=== PATIENT | male | born 1965 | race African-American/Black ===

== ENCOUNTER 2018-10-12 10:36 | Inpatient (IN) | payer OTHER ==
[2018-10-12 10:40] VITALS: BMI 19.2
--- NOTE | 2018-10-12 11:40 | HP ---
CIWA Score Nausea/Vomitin Muscle Tremors: 2 Anxiety: 2 Agitation: 2 Paroxysmal Sweats: 1-Minimal Palms Moist Orientation: 0-Oriented Tacttile Disturbances: 1-Very Mild Itch/Numbness Auditory Disturbances: 1-Very Mild Visual Disturbances: 0-None Headache: 2-Mild CIWA-Ar Total Score: 13 - Admission Criteria OASAS Guidelines: Admission for Medically Managed Detox: Requires at least one of the followin. CIWA greater than 12 2. Seizures within the past 24 hours 3. Delirium tremens within the past 24 hours 4. Hallucinations within the past 24 hours 5. Acute intervention needed for co occurring medical disorder 6. Acute intervention needed for co occurring psychiatric disorder 7. Severe withdrawal that cannot be handled at a lower level of care (continued vomiting, continued diarrhea, abnormal vital signs) requiring intravenous medication and/or fluids 8. Patient presents the following: CIWA greater than 12 Admission Criteria Met: Admission criteria met Admission ROS BHS - HPI Chief Complaint: i need help to stop drinking alcohol,cocaine and marijuana Allergies/Adverse Reactions: Allergies Allergy/AdvReac Type Severity Reaction Status Date / Time No Known Allergies Allergy Verified 10/12/18 11:01 History of Present Illness: this 53 years old male with alcohol dependence,seeking detox,withdrawal symptom, last treatment in [facility] 05/19 completed nicotine dependence 1 pack/day hiv since 1990 weight loss plan for rehab after longest sobriety 2 years Exam Limitations: No Limitations - Ebola screening Have you traveled outside of the country in the last 21 days: No (N) Have you had contact with anyone from an Ebola affected area: No Have you been sick,other than usual withdrawal symptoms: No Do you have a fever: No - Review of Systems Constitutional: Loss of Appetite, Malaise, Night Sweats, Changes in sleep, Weakness, Unintentional Wgt. Loss EENT: reports: Nose Congestion Respiratory: reports: No Symptoms reported Cardiac: reports: No Symptoms Reported GI: reports: Poor Appetite, Abdominal cramping : reports: No Symptoms Reported Musculoskeletal: reports: Back Pain, Muscle Pain Integumentary: reports: Dryness Endocrine: reports: No Symptoms Reported Hematology: reports: No Symptoms Reported, Other (hiv) Psychiatric: reports: No Sypmtoms Reported, Judgement Intact, Mood/Affect Appropiate, Orientated x3, other Other Systems: Reviewed and Negative Patient History - Patient Medical History Hx Asthma: No Hx Chronic Obstructive Pulmonary Disease (COPD): No Hx Cancer: No Hx Cardiac Disorders: No Hx Congestive Heart Failure: No Hx Hypertension: No Hx Hypercholesterolemia: No Hx Pacemaker: No HX Cerebrovascular Accident: No Hx Seizures: No Hx Dementia: No Hx Diabetes: No Hx Gastrointestinal Disorders: No Hx Genitourinary Disorders: No Hx Sexually Transmitted Disorders: Yes (chlamydia, Gonorrhea, herpes all 1990) Hx Renal Disease (ESRD): No Hx Thyroid Disease: No Hx Human Immunodeficiency Virus (HIV): Yes (since 1990) Hx Hepatitis C: No Hx Depression: No Hx Suicide Attempt: No Hx Bipolar Disorder: No Hx Schizophrenia: No Other Medical History: no suicidal,no homicidal - Patient Surgical History Past Surgical History: No - PPD History Previous Implant?: No Documented Results: Positive w/o proof Implanted On Prior [facility] Admission?: No PPD to be Administered?: No - Reproductive History Patient : No - Smoking Cessation Smoking history: Current every day smoker Have you smoked in the past 12 months: Yes Aproximately how many cigarettes per day: 10 Hx Chewing Tobacco Use: No Initiated information on smoking cessation: Yes 'Breaking Loose' booklet given: 10/12/18 - Substance & Tx. History Hx Alcohol Use: Yes Hx Substance Use: Yes Substance Use Type: Alcohol, Cocaine, Marijuana Hx Substance Use Treatment: Yes ([facility] in 04/19) - Substances Abused Alcohol Route: Oral Frequency: Daily Amount used: 4 six packs beers( 16 oz cans), 1 pint a liquor Age of first use: 13 Date of Last Use: 10/12/18 marijuana Route: Smoking Frequency: Daily Amount used: 1 bag Age of first use: 16 Date of Last Use: 10/12/18 crack cocaine Route: Smoking Frequency: Daily Amount used: $100-$200 per day Age of first use: 25 Date of Last Use: 10/12/18 Family Disease History - Family Disease History Family History: Denies Admission Physical Exam BHS - Vital Signs Vital Signs: Vital Signs - 24 hr 10/12/18 10:38 Temperature 98.1 F Pulse Rate 90 Respiratory 18 Rate Blood Pressure 140/86 - Physical General Appearance: Yes: Moderate Distress, Tremorous, Irritable, Sweating, Anxious HEENTM: Yes: Normal ENT Inspection, NATHANAEL, Pharynx Normal, Thrush, Other ( oropharyngeal candidiasis) Respiratory: Yes: Lungs Clear, Normal Breath Sounds, No Respiratory Distress Neck: Yes: Within Normal Limits, Supple, Trachea in good position Breast: Yes: Within Normal Limits Cardiology: Yes: Within Normal Limits, Regular Rhythm, Regular Rate, S1, S2 Abdominal: Yes: Within Normal Limits, Normal Bowel Sounds, Non Tender, Flat, Soft Genitourinary: Yes: Within Normal Limits Back: Yes: Muscle Spasm Musculoskeletal: Yes: full range of Motion, Back pain, Muscle Pain Extremities: Yes: Tremors Neurological: Yes: garnisher II-XII NML intact, Fully Oriented, Alert, Motor Strength 5/5 Integumentary: Yes: Dry Lymphatic: Yes: Within Normal Limits - Diagnostic (1) Alcohol dependence with uncomplicated withdrawal Current Visit: Yes Status: Acute (2) Cocaine dependence Current Visit: Yes Status: Acute (3) HIV (human immunodeficiency virus infection) Current Visit: Yes Status: Acute (4) Oropharyngeal candidiasis Current Visit: Yes Status: Acute (5) Nicotine dependence Current Visit: Yes Status: Acute (6) Weight loss Current Visit: Yes Status: Acute Cleared for Admission [facility] - Detox or Rehab [facility] Level of Care: Medically Managed Detox Regimen/Protocol: Librium [facility] Breath Alcohol Content Breath Alcohol Content: 0.126 Urine Drug Screen - Results Drug Screen Negative: No Urine Drug Screen Results: IMAN-Cocaine Inpatient Rehab Admission - Rehab Decision to Admit Inpatient rehab admission?: No
[2018-10-12] MEDS ORDERED: MELATONIN 5 MG TABLETS PO PRN (11:51)
[2018-10-12] MEDS ORDERED: MENTHOL/PHENOL 1 EACH UD MM PRN (11:51)
[2018-10-12] MEDS ORDERED: NICOTINE POLACRILEX 2 MG GUM BUC PRN (11:51)
[2018-10-12] MEDS ORDERED: chlordiazePOXIDE HCL 25 MG CAPSULE PO PRN (11:51)
[2018-10-12] MEDS ORDERED: ACETAMINOPHEN 325 MG TABLET (FP) PO PRN ×2 (11:51)
[2018-10-12] MEDS ORDERED: MAG HYDROX/AL HYDROX/SIMETH 30 ML UNIT-DOSE CUP PO PRN (11:51)
[2018-10-12] MEDS ORDERED: METHOCARBAMOL 500 MG TABLET PO PRN (11:51)
[2018-10-12] MEDS ORDERED: IBUPROFEN 400 MG TABLET (FP) PO PRN (11:51)
[2018-10-12] MEDS ORDERED: MAGNESIUM HYDROX 2400MG/30ML ORAL SUSPENSION 30 ML CUP PO PRN (11:51)
[2018-10-12] MEDS ORDERED: BISMUTH SUBSALICYLATE 262 MG/15 ML BTL PO PRN (11:51)
[2018-10-12] MEDS ORDERED: MAGNESIUM CITRATE 300 ML BOTTLE PO PRN (11:51)
[2018-10-12] MEDS ORDERED: hydrOXYzine PAMOATE 25 MG CAPSULE (FP) PO PRN (11:51)
[2018-10-12] MEDS: SULFAMETHOXAZOLE/TRIMETHOPRIM 800MG/160MG D.S. TABLET PO SCH (13:18)
[2018-10-12] MEDS: FLUCONAZOLE 100 MG TABLET (UD) PO SCH (14:46)
[2018-10-12] MEDS: chlordiazePOXIDE HCL 25 MG CAPSULE PO SCH ×2 (17:55→22:06)
[2018-10-12] MEDS: THIAMINE HCL 100 MG TABLET (FP) PO SCH (22:06)
[2018-10-12 23:51] LABS: URINE APPEARANCE CLEAR; URINE BILIRUBIN NEGATIVE (<2.0 mg/dL); URINE COLOR STRAW; URINE GLUCOSE (UA) NEGATIVE (NEGATIVE); URINE KETONE NEGATIVE (NEGATIVE); URINE LEUK ESTERASE NEGATIVE (NEGATIVE); URINE NITRITE NEGATIVE (NEGATIVE); URINE PROTEIN NEGATIVE (NEGATIVE); URINE UROBILINOGEN NEGATIVE mg/dL (0.2-1.0)
[2018-10-13] MEDS: chlordiazePOXIDE HCL 25 MG CAPSULE PO SCH ×4 (05:45→22:08)
[2018-10-13 10:18] LABS: HEMATOCRIT 39.6 % (35.4-49); HEMOGLOBIN 13.4 GM/dL (11.7-16.9); MCH 32.5 pg (25.7-33.7); MEAN CELL VOLUME 95.7 fl (80-96); MEAN PLT VOLUME 8.4 fl (7.5-11.1); PLATELET COUNT 136 K/MM3 (134-434); RBC 4.14 M/mm3 (4.00-5.60); RDW 14.1 % (11.9-15.9); WHITE BLOOD COUNT 3.9 K/mm3 (4.0-10.0)
[2018-10-13] MEDS: PRENATAL VITAMINS W/ FOLIC ACID TABLET (FP) PO SCH (10:37)
[2018-10-13] MEDS: SULFAMETHOXAZOLE/TRIMETHOPRIM 800MG/160MG D.S. TABLET PO SCH (10:38)
[2018-10-13] MEDS: FLUCONAZOLE 100 MG TABLET (UD) PO SCH (10:38)
[2018-10-13 10:51] LABS: ALBUMIN 3.5 g/dl (3.4-5.0); ALK PHOS 99 U/L (45-117); ANION GAP 10 MMOL/L (8-16); BILIRUBIN,TOTAL 0.4 mg/dL (0.2-1); BLOOD UREA NITROGEN 11 mg/dL (7-18); CALCIUM 8.4 mg/dL (8.5-10.1); CHLORIDE 102 mmol/L (98-107); CO2 22 mmol/L (21-32); CREATININE 1.2 mg/dL (0.55-1.3); GLUCOSE,RANDOM 95 mg/dL (74-106); POTASSIUM 4.1 mmol/L (3.5-5.1); SGOT/AST 90 U/L (15-37); SGPT/ALT 62 U/L (13-61); SODIUM 134 mmol/L (136-145); TOT PROT 9.4 g/dl (6.4-8.2)
[2018-10-13 10:56] LABS: SICKLE CELL SCREEN NEGATIVE (NEGATIVE)
--- NOTE | 2018-10-13 17:48 | PN ---
BHS CIWA - CIWA Score Nausea/Vomitin Muscle Tremors: 3 Anxiety: 2 Agitation: 0-Normal Activity Paroxysmal Sweats: 2 Orientation: 0-Oriented Tacttile Disturbances: 2-Mild Itch/Numbness/Burn Auditory Disturbances: 0-None Visual Disturbances: 2-Mild Sensitivity Headache: 0-None Present CIWA-Ar Total Score: 13 BHS Progress Note (SOAP) Subjective: Sweating, Tremors, Nausea, Anxious. Objective: PATIENT A & O X 3. IN NO ACUTE DISTRESS. 10/13/18 17:45 Vital Signs Temperature 97.5 F L 10/13/18 14:04 Pulse Rate 82 10/13/18 14:04 Respiratory Rate 18 10/13/18 14:04 Blood Pressure 110/68 10/13/18 14:04 O2 Sat by Pulse Oximetry (%) Laboratory Tests 10/12/18 10/13/18 10/13/18 23:17 06:00 06:00 WBC 3.9 L RBC 4.14 Hgb 13.4 Hct 39.6 MCV 95.7 MCH 32.5 MCHC 34.0 RDW 14.1 Plt Count 136 MPV 8.4 Sickle Cell Screen Negative Sodium 134 L Potassium 4.1 Chloride 102 Carbon Dioxide 22 Anion Gap 10 BUN 11 Creatinine 1.2 Creat Clearance w eGFR > 60 Random Glucose 95 Calcium 8.4 L Total Bilirubin 0.4 AST 90 H ALT 62 H Alkaline Phosphatase 99 Total Protein 9.4 H Albumin 3.5 Urine Color Straw Urine Appearance Clear Urine pH 5.0 Ur Specific [place] 1.003 L Urine Protein Negative Urine Glucose (UA) Negative Urine Ketones Negative Urine Blood Negative Urine Nitrite Negative Urine Bilirubin Negative Urine Urobilinogen Negative Ur Leukocyte Esterase Negative RPR Titer 10/13/18 06:00 WBC RBC Hgb Hct MCV MCH MCHC RDW Plt Count MPV Sickle Cell Screen Sodium Potassium Chloride Carbon Dioxide Anion Gap BUN Creatinine Creat Clearance w eGFR Random Glucose Calcium Total Bilirubin AST ALT Alkaline Phosphatase Total Protein Albumin Urine Color Urine Appearance Urine pH Ur Specific [place] Urine Protein Urine Glucose (UA) Urine Ketones Urine Blood Urine Nitrite Urine Bilirubin Urine Urobilinogen Ur Leukocyte Esterase RPR Titer Nonreactive LABS NOTED. Assessment: 10/13/18 17:47 WITHDRAWAL SYMPTOMS. Plan: CONTINUE DETOX. INCREASE DAILY PO FLUID INTAKE. REEPAT AST TOMORROW AM FOR ELEVATED ADMISSION LEVEL.
[2018-10-13] MEDS: THIAMINE HCL 100 MG TABLET (FP) PO SCH (22:07)
[2018-10-14] MEDS: chlordiazePOXIDE HCL 25 MG CAPSULE PO SCH ×2 (06:16→10:36)
[2018-10-14 09:15] VITALS: BP 103/71; PULSE 85; TEMP 97.8
[2018-10-14] MEDS: FLUCONAZOLE 100 MG TABLET (UD) PO SCH (10:36)
[2018-10-14] MEDS: PRENATAL VITAMINS W/ FOLIC ACID TABLET (FP) PO SCH (10:36)
[2018-10-14] MEDS: SULFAMETHOXAZOLE/TRIMETHOPRIM 800MG/160MG D.S. TABLET PO SCH (10:36)
--- NOTE | 2018-10-14 16:01 | PN ---
[facility] CIWA - CIWA Score Nausea/Vomitin-No Nausea/No Vomiting Muscle Tremors: None Anxiety: 4-Mod. Anxious/Guarded Agitation: 2 Paroxysmal Sweats: 3 Orientation: 0-Oriented Tacttile Disturbances: 2-Mild Itch/Numbness/Burn Auditory Disturbances: 0-None Visual Disturbances: 0-None Headache: 0-None Present CIWA-Ar Total Score: 11 BHS Progress Note (SOAP) Subjective: Sweating, Anxious. Objective: PATIENT A & O X 3, OBSERVED AMBULATING ON UNIT. IN NO ACUTE DISTRESS. 10/14/18 15:59 Vital Signs Temperature 97.8 F 10/14/18 09:14 Pulse Rate 85 10/14/18 09:14 Respiratory Rate 18 10/14/18 09:14 Blood Pressure 103/71 10/14/18 09:14 O2 Sat by Pulse Oximetry (%) Laboratory Tests 10/12/18 10/13/18 10/13/18 23:17 06:00 06:00 WBC 3.9 L RBC 4.14 Hgb 13.4 Hct 39.6 MCV 95.7 MCH 32.5 MCHC 34.0 RDW 14.1 Plt Count 136 MPV 8.4 Sickle Cell Screen Negative Sodium 134 L Potassium 4.1 Chloride 102 Carbon Dioxide 22 Anion Gap 10 BUN 11 Creatinine 1.2 Creat Clearance w eGFR > 60 Random Glucose 95 Calcium 8.4 L Total Bilirubin 0.4 AST 90 H ALT 62 H Alkaline Phosphatase 99 Total Protein 9.4 H Albumin 3.5 Urine Color Straw Urine Appearance Clear Urine pH 5.0 Ur Specific [place] 1.003 L Urine Protein Negative Urine Glucose (UA) Negative Urine Ketones Negative Urine Blood Negative Urine Nitrite Negative Urine Bilirubin Negative Urine Urobilinogen Negative Ur Leukocyte Esterase Negative RPR Titer 10/13/18 10/14/18 06:00 07:40 WBC RBC Hgb Hct MCV MCH MCHC RDW Plt Count MPV Sickle Cell Screen Sodium Potassium Chloride Carbon Dioxide Anion Gap BUN Creatinine Creat Clearance w eGFR Random Glucose Calcium Total Bilirubin AST 79 H ALT Alkaline Phosphatase Total Protein Albumin Urine Color Urine Appearance Urine pH Ur Specific [place] Urine Protein Urine Glucose (UA) Urine Ketones Urine Blood Urine Nitrite Urine Bilirubin Urine Urobilinogen Ur Leukocyte Esterase RPR Titer Nonreactive LABS NOTED. RESULT OF REPEAT AST NOTED. REDUCTION NOTED IN AST LEVEL. 10/14/18 16:00 Assessment: 10/14/18 15:59 WITHDRAWAL SYMPTOMS. ELEVATED LIVER ENZYMES. 10/14/18 16:01 Plan: CONTINUE DETOX. INCREASE DAILY PO FLUID INTAKE.
--- NOTE | 2018-10-14 16:06 | DS ---
[facility] Detox Discharge Summary Admission Date: 10/12/18 Discharge Date: 10/14/18 - History Present History: Alcohol Dependence, Cocaine Dependence Additional Comments: PATIENT DOES NOT WISH TO REMAIN TO COMPLETE DETOX REGIMEN. RISKS OF LEAVING DETOX UNIT AGAINST MEDICAL ADVICE AND PRIOR TO COMPLETION OF DETOX REGIMEN EXPLAINED TO PATIENT. PATIENT ADVISED TO GO IMMEDIATELY TO NEAREST ER SHOULD ANY INTOLERABLE DETOX SYMPTOMS DEVELOP AT ANY TIME. DISCHARGE PRESCRIPTION FOR CONTINUATION OF DIFLUCAN (ORDERED FOR ORAL CANDIDIASIS FOR PATIENT WHILE ADMITTED ON DETOX UNIT) SENT TO [facility] ([place], [place]) FOR FOLLOW-UP AFTERCARE FOR PATIENT. PATIENT ADVISED TO COMPLETE FULL COURSE OF MEDICATION. PATIENT ADVISED TO FOLLOW-UP WITH COMPUTATIONAL CHEMIST WHEN POSSIBLE FOR GENERAL MEDICAL ASSESSMENT AND FOR ELEAVTED AST AND ALT LEVELS NOTED IN LABORATORY ASSESSMENT WHILE PATIENT WAS ADMITTED FOR DETOX. PATIENT VERBALIZED UNDERSTANDING OF ALL INFORMATION / RECOMMENDATIONS PRESENTED TO HIM PRIOR TO DEPARTURE FROM DETOX UNIT. COPIES OF LABS DRAWN WHILE ADMITTED FOR DETOX GIVEN TO PATIENT PRIOR TO LEAVING DETOX UNIT. PATIENT LEFT DETOX UNIT IN STABLE MEDICAL CONDITION. Pertinent Past History: H.I.V., Oral Candidiasis, Weight Loss, Nicotine Dependence, Elevated Liver Enzymes. - Physical Exam Results Vital Signs: Vital Signs Temperature 97.8 F 10/14/18 09:14 Pulse Rate 85 10/14/18 09:14 Respiratory Rate 18 10/14/18 09:14 Blood Pressure 103/71 10/14/18 09:14 O2 Sat by Pulse Oximetry (%) Pertinent Admission Physical Exam Findings: WITHDRAWAL SYMPTOMS. Laboratory Tests 10/12/18 10/13/18 10/13/18 23:17 06:00 06:00 WBC 3.9 L RBC 4.14 Hgb 13.4 Hct 39.6 MCV 95.7 MCH 32.5 MCHC 34.0 RDW 14.1 Plt Count 136 MPV 8.4 Sickle Cell Screen Negative Sodium 134 L Potassium 4.1 Chloride 102 Carbon Dioxide 22 Anion Gap 10 BUN 11 Creatinine 1.2 Creat Clearance w eGFR > 60 Random Glucose 95 Calcium 8.4 L Total Bilirubin 0.4 AST 90 H ALT 62 H Alkaline Phosphatase 99 Total Protein 9.4 H Albumin 3.5 Urine Color Straw Urine Appearance Clear Urine pH 5.0 Ur Specific [place] 1.003 L Urine Protein Negative Urine Glucose (UA) Negative Urine Ketones Negative Urine Blood Negative Urine Nitrite Negative Urine Bilirubin Negative Urine Urobilinogen Negative Ur Leukocyte Esterase Negative RPR Titer 10/13/18 10/14/18 06:00 07:40 WBC RBC Hgb Hct MCV MCH MCHC RDW Plt Count MPV Sickle Cell Screen Sodium Potassium Chloride Carbon Dioxide Anion Gap BUN Creatinine Creat Clearance w eGFR Random Glucose Calcium Total Bilirubin AST 79 H ALT Alkaline Phosphatase Total Protein Albumin Urine Color Urine Appearance Urine pH Ur Specific [place] Urine Protein Urine Glucose (UA) Urine Ketones Urine Blood Urine Nitrite Urine Bilirubin Urine Urobilinogen Ur Leukocyte Esterase RPR Titer Nonreactive LABS NOTED. - Treatment Hospital Course: Detox Protocol Followed, Detoxed Safely - Medication Discharge Medications: Ambulatory Orders Abacavir/Dolutegravir/Lamivudi [Triumeq Tablet] 1 each PO DAILY 10/12/18 Fluconazole [Diflucan -] 100 mg PO DAILY 5 Days #5 tablet 10/14/18 - Diagnosis (1) Alcohol dependence with uncomplicated withdrawal Status: Acute (2) Cocaine dependence Status: Acute Qualifiers: Substance use status: uncomplicated Qualified Code(s): F14.20 - Cocaine dependence, uncomplicated (3) HIV (human immunodeficiency virus infection) Status: Acute Qualifiers: HIV symptom status: unspecified Qualified Code(s): B20 - Human immunodeficiency virus [HIV] disease (4) Nicotine dependence Status: Chronic Qualifiers: Nicotine product type: cigarettes Substance use status: uncomplicated Qualified Code(s): F17.210 - Nicotine dependence, cigarettes, uncomplicated (5) Oropharyngeal candidiasis Status: Acute (6) Weight loss Status: Acute (7) Elevated liver enzymes Status: Acute - AMA Did Patient Leave Against Medical Advice: Yes (PATIENT DID NOT WISH TO REEMAIN TO COMPLETE DETOX REGIMEN.)
[2018-10-14] MEDS ORDERED: chlordiazePOXIDE HCL 10 MG CAPSULE PO PRN (17:00)
[2018-10-14] MEDS ORDERED: chlordiazePOXIDE HCL 10 MG CAPSULE PO SCH (17:00)
[2018-10-15] MEDS ORDERED: chlordiazePOXIDE HCL 10 MG CAPSULE PO SCH (17:00)
== END 2018-10-14 11:17 | disposition left against medical advice (07) | DRG 770 ==
LOC: YASAS 10:36 → Y3N 12:01
PROVIDERS: ADMIT Surgery; ATTEND Surgery
PROC: HZ2ZZZZ Detoxification Services for Substance Abuse Treatment (ICD-10-PCS; principal; 2018-10-12)
DX: F10.230 Alcohol dependence with withdrawal, uncomplicated (principal); F14.20 Cocaine dependence, uncomplicated; F17.210 Nicotine dependence, cigarettes, uncomplicated; Z21 Asymptomatic human immunodeficiency virus [HIV] infection status; B37.0 Candidal stomatitis; R74.8 Abnormal levels of other serum enzymes; R63.4 Abnormal weight loss; Z68.1 Body mass index [BMI] 19.9 or less, adult; Z86.19 Personal history of other infectious and parasitic diseases
CPT/HCPCS: 36415; 71046-TC-FY; 80053; 81003; 84450; 85027; 85660; 86593

== ENCOUNTER 2020-03-16 13:59 | Inpatient (IN) | payer OTHER ==
[2020-03-16 20:16] VITALS: BMI 19.2
--- NOTE | 2020-03-16 20:58 | HP ---
CIWA Score Nausea/Vomitin Muscle Tremors: 3 Anxiety: 4-Mod. Anxious/Guarded Agitation: 3 Paroxysmal Sweats: 2 Orientation: 2-Disoriented Date<2 days Tacttile Disturbances: 0-None Auditory Disturbances: 0-None Visual Disturbances: 0-None Headache: 0-None Present CIWA-Ar Total Score: 16 - Admission Criteria OASAS Guidelines: Admission for Medically Managed Detox: Requires at least one of the followin. CIWA greater than 12 2. Seizures within the past 24 hours 3. Delirium tremens within the past 24 hours 4. Hallucinations within the past 24 hours 5. Acute intervention needed for co occurring medical disorder 6. Acute intervention needed for co occurring psychiatric disorder 7. Severe withdrawal that cannot be handled at a lower level of care (continued vomiting, continued diarrhea, abnormal vital signs) requiring intravenous medication and/or fluids 8. Admitting History and Physical - Smoking History Smoking history: Current every day smoker Have you smoked in the past 12 months: Yes Aproximately how many cigarettes per day: 20 - Alcohol/Substance Use Hx Alcohol Use: Yes Admission ROS [facility] Chief Complaint: Seeking admission to detox from alcohol Allergies/Adverse Reactions: Allergies Allergy/AdvReac Type Severity Reaction Status Date / Time No Known Allergies Allergy Verified 03/16/20 21:53 History of Present Illness: 54 years old male with a long history of alcohol dependence ( since age 12 years ) is seeking admission to detox. his last admission was for the period 12/02/2019-12/26/2019 and he relapsed a few days post discharge. He reports that he drinks 4 x 6 packs 16 oz. beer daily. He has medical history of HIV+, anemia, right leg neuropathy and psych. history of insomnia, anxiety. He denies suicid al ideation at this time. 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 He is unemployed, lives in a hotel "[facility]" and denies any legal issues. Patient reports that he is a transgender and prefers to be called "Timoteo". Patient's EKG is abnormal. NSR. T wave abnormality, consider anterolateral ischemia. Patient denies chest pain, discomfort, nausea, palpitation or any abnormal cardiac symptom. There is no prior EKG to compare. EKG to be repeated at 9AM. Patient instructed to report chest pain or discomfort. Exam Limitations: No Limitations - Ebola screening Have you traveled outside of the country in the last 21 days: No Have you had contact with anyone from an Ebola affected area: No Have you been sick,other than usual withdrawal symptoms: No Do you have a fever: No - Review of Systems Constitutional: Chills, Malaise, Night Sweats, Changes in sleep EENT: reports: No Symptoms Reported Respiratory: reports: No Symptoms reported Cardiac: reports: No Symptoms Reported GI: reports: Nausea, Poor Appetite, Poor Fluid Intake, Abdominal cramping : reports: No Symptoms Reported Musculoskeletal: reports: Other (right leg pain) Integumentary: reports: Dryness, Flushing Neuro: reports: Tremors Endocrine: reports: No Symptoms Reported Hematology: reports: No Symptoms Reported Psychiatric: reports: Mood/Affect Appropiate, Orientated x3 Other Systems: Reviewed and Negative Patient History - Patient Medical History Hx Anemia: Yes (Not on medication) Hx Asthma: No Hx Chronic Obstructive Pulmonary Disease (COPD): No Hx Cancer: No Hx Cardiac Disorders: No Hx Congestive Heart Failure: No Hx Hypertension: No Hx Hypercholesterolemia: No Hx Pacemaker: No HX Cerebrovascular Accident: No Hx Seizures: No Hx Dementia: No Hx Diabetes: No Hx Gastrointestinal Disorders: No Hx Genitourinary Disorders: No Hx Sexually Transmitted Disorders: Yes (HIV+) Hx Renal Disease (ESRD): No Hx Thyroid Disease: No Hx Human Immunodeficiency Virus (HIV): Yes (since 1990) Hx Hepatitis C: No Hx Depression: No Hx Suicide Attempt: No (Denies suicidl ideation at this time) Hx Bipolar Disorder: No Hx Schizophrenia: No Other Medical History: right leg neuropathy - Patient Surgical History Past Surgical History: Yes Hx Neurologic Surgery: No Hx Cataract Extraction: No Hx Cardiac Surgery: No Hx Lung Surgery: No Hx Abdominal Surgery: No Hx Appendectomy: No Hx Cholecystectomy: No Hx Genitourinary Surgery: No Hx Orthopedic Surgery: No Other Surgical History: Nose reconstruction 1988 Anesthesia Reaction: No - PPD History Previous Implant?: Yes (PPD positive, treated with INH) Documented Results: Positive w/proof Implanted On Prior R Admission?: No PPD to be Administered?: No - Reproductive History Patient is a Female of Child Bearing Age (11 -55 yrs old): No (Male) - Smoking Cessation Smoking history: Current every day smoker Have you smoked in the past 12 months: Yes Aproximately how many cigarettes per day: 10 Cigars Per Day: 0 Hx Chewing Tobacco Use: No Initiated information on smoking cessation: Yes 'Breaking Loose' booklet given: 03/16/20 - Substance & Tx. History Hx Alcohol Use: Yes Hx Substance Use: Yes Substance Use Type: Alcohol, Cocaine Hx Substance Use Treatment: Yes ([facility]) - Substances abused Alcohol Substance route: Oral Frequency: Daily Amount used: 4 x 6 packs 16 oz. beer Age of first use: 12 Date of last use: 03/16/20 Admission Physical Exam [facility] - Vital Signs Vital Signs: Vital Signs - 24 hr 03/16/20 20:13 Temperature 97.9 F Pulse Rate 92 H Respiratory 18 Rate Blood Pressure 123/71 - Physical General Appearance: Yes: Moderate Distress, Tremorous, Anxious HEENTM: Yes: Within Normal Limits Respiratory: Yes: Lungs Clear, Normal Breath Sounds, No Respiratory Distress Neck: Yes: Within Normal Limits Breast: Yes: Breast Exam Deferred Cardiology: Yes: Tachycardia Abdominal: Yes: Normal Bowel Sounds Genitourinary: Yes: Within Normal Limits Back: Yes: Normal Inspection Musculoskeletal: Yes: Other (shoulder pain) Extremities: Yes: Tremors, Other (right leg neuropathy) Neurological: Yes: Within Normal Limits Integumentary: Yes: Warm Lymphatic: Yes: Within Normal Limits Cleared for Admission [facility] - Detox or Rehab [facility] Level of Care: Medically Managed Detox Regimen/Protocol: Librium Claeared for Rehab Admission: No Breathalyzer - Breathalyzer Breathalyzer: 0.48 Urine Drug Screen - Test Device Lot number: [id number] Expiration date: 04/01/22 - Control Is test valid?: Yes - Results Drug screen NEGATIVE: No Urine drug screen results: IMAN-Cocaine Inpatient Rehab Admission - Rehab Decision to Admit Inpatient rehab admission?: No
[2020-03-16] MEDS ORDERED: MAG HYDROX/AL HYDROX/SIMETH 30 ML UNIT-DOSE CUP PO PRN (21:09)
[2020-03-16] MEDS ORDERED: ACETAMINOPHEN 325 MG TABLET (FP) PO PRN ×2 (21:09)
[2020-03-16] MEDS ORDERED: MAGNESIUM HYDROX 2400MG/30ML ORAL SUSPENSION 30 ML CUP PO PRN (21:09)
[2020-03-16] MEDS ORDERED: MAGNESIUM CITRATE 300 ML BOTTLE PO PRN (21:09)
[2020-03-16] MEDS ORDERED: ONDANSETRON *ODT* 4 MG TABLET SL PRN (21:09)
[2020-03-16] MEDS ORDERED: chlordiazePOXIDE HCL 25 MG CAPSULE PO PRN (21:09)
[2020-03-16] MEDS ORDERED: hydrOXYzine PAMOATE 25 MG CAPSULE (FP) PO PRN (21:09)
[2020-03-16] MEDS ORDERED: NICOTINE POLACRILEX 2 MG GUM BUC PRN (21:09)
[2020-03-16] MEDS ORDERED: METHOCARBAMOL 500 MG TABLET PO PRN (21:09)
[2020-03-16] MEDS ORDERED: MENTHOL/PHENOL 1 EACH UD MM PRN (21:09)
[2020-03-16] MEDS ORDERED: BISMUTH SUBSALICYLATE 524 MG/30 ML UD PO PRN (21:09)
[2020-03-16] MEDS: THIAMINE HCL 100 MG TABLET (FP) PO SCH (23:09)
[2020-03-16] MEDS: MELATONIN 5 MG TABLETS PO SCH (23:09)
[2020-03-16] MEDS: chlordiazePOXIDE HCL 25 MG CAPSULE PO SCH (23:10)
[2020-03-17] MEDS: chlordiazePOXIDE HCL 25 MG CAPSULE PO SCH ×4 (05:45→22:16)
[2020-03-17 10:48] LABS: ALBUMIN 2.8 g/dl (3.4-5.0); BLOOD UREA NITROGEN 9.2 mg/dL (7-18); CALCIUM 8.2 mg/dL (8.5-10.1); POTASSIUM 3.6 mmol/L (3.5-5.1); TOT PROT 8.3 g/dl (6.4-8.2)
[2020-03-17] MEDS: PRENATAL VITAMINS W/ FOLIC ACID TABLET (FP) PO SCH (10:51)
[2020-03-17] MEDS: NICOTINE 14 MG/24 HOURS TOPICAL PATCH TD SCH (10:51)
[2020-03-17 10:53] LABS: BILIRUBIN,TOTAL 0.6 mg/dL (0.2-1)
[2020-03-17 10:54] LABS: HEMATOCRIT 36.5 % (35.4-49); MCH 31.9 pg (25.7-33.7); MCHC 32.9 g/dl (32.0-35.9); MEAN CELL VOLUME 96.9 fl (80-96); MEAN PLT VOLUME 8.7 fl (7.5-11.1); PLATELET COUNT 118 K/MM3 (134-434); RBC 3.76 M/mm3 (4.00-5.60); RDW 13.5 % (11.9-15.9); WHITE BLOOD COUNT 2.8 K/mm3 (4.0-10.0)
--- NOTE | 2020-03-17 16:42 | PN ---
S CIWA - CIWA Score Nausea/Vomitin-Mild Nausea/No Vomiting Muscle Tremors: 1-None Visible, but [place] Anxiety: 2 Agitation: 3 Paroxysmal Sweats: No Perspiration Orientation: 0-Oriented Tacttile Disturbances: 1-Very Mild Itch/Numbness Auditory Disturbances: 0-None Visual Disturbances: 2-Mild Sensitivity Headache: 1-Very Mild CIWA-Ar Total Score: 11 S Progress Note (SOAP) Subjective: 54 YEARS OLD MALE ADMITTED ON 03/16/20 FOR ALCOHOL WITHDRAWAL SX MANAGEMENT TREATING WITH LIBRIUM DETOX REGIMENT [facility] DEMANDS TO RESUME ALL HIS HOME MEDICATIONS DISCUSSING HIV MEDICATION VERIFICATION WITH THE PHARMACY AND OUTSIDE PROVIDER ARE NECESSARY TO RESUME HIV MEDICATION PREFERRED PHARMACY CLOSE ON WEDNESDAY [facility] IS DISSATISFY REGARDING THE HIV MEDICATION ENCOURAGE [facility] TO BRING IN HIV MEDICATION FOR DETOX Objective: 03/17/20 16:44 Vital Signs - 24 hr 03/16/20 03/16/20 03/16/20 20:13 21:58 22:27 Temperature 97.9 F 97.9 F Pulse Rate 92 H 92 H Respiratory 18 18 Rate Blood Pressure 123/71 123/71 O2 Sat by Pulse 98 Oximetry (%) 03/16/20 03/17/20 03/17/20 22:40 07:09 08:30 Temperature 96.8 F L 97.7 F 97.1 F L Pulse Rate 61 76 78 Respiratory 18 18 18 Rate Blood Pressure 154/91 119/74 126/88 O2 Sat by Pulse 98 99 Oximetry (%) 03/17/20 12:18 Temperature 98.8 F Pulse Rate 106 H Respiratory 18 Rate Blood Pressure 113/78 O2 Sat by Pulse 99 Oximetry (%) Laboratory Tests 03/17/20 03/17/20 03/17/20 08:00 08:00 08:00 WBC 2.8 L RBC 3.76 L Hgb 12.0 Hct 36.5 MCV 96.9 H MCH 31.9 MCHC 32.9 RDW 13.5 Plt Count 118 L D MPV 8.7 Sodium 139 Potassium 3.6 Chloride 105 Carbon Dioxide 28 Anion Gap 6 L BUN 9.2 Creatinine 1.0 Est GFR (CKD-EPI)AfAm 98.46 Est GFR (CKD-EPI)NonAf 84.95 Random Glucose 104 Calcium 8.2 L Total Bilirubin 0.6 AST 79 H ALT 38 Alkaline Phosphatase 90 Total Protein 8.3 H Albumin 2.8 L Syphilis Serology Reactive A* RPR Titer 03/17/20 08:00 WBC RBC Hgb Hct MCV MCH MCHC RDW Plt Count MPV Sodium Potassium Chloride Carbon Dioxide Anion Gap BUN Creatinine Est GFR (CKD-EPI)AfAm Est GFR (CKD-EPI)NonAf Random Glucose Calcium Total Bilirubin AST ALT Alkaline Phosphatase Total Protein Albumin Syphilis Serology RPR Titer Reactive 1:1 H LAB NOTED 03/17/20 16:47 SYPHILIS CONTACT TREATED PENICILLIN IM X 1 BOOSTER 03/17/20 16:48 Assessment: 03/17/20 16:49 ALCOHOL WITHDRAWAL Plan: LIBRIUM REGIMENT
[2020-03-17] MEDS ORDERED: PENICILLIN G BENZATHINE 2,400,000 UNIT/4 ML PFS IM ONE (17:30)
--- NOTE | 2020-03-17 18:53 | EKG ---
Test Reason : Blood Pressure : / mmHG Vent. Rate : 066 BPM Atrial Rate : 066 BPM P-R Int : 128 ms QRS Dur : 092 ms QT Int : 414 ms P-R-T Axes : 044 040 051 degrees QTc Int : 434 ms NORMAL SINUS RHYTHM T WAVE ABNORMALITY, CONSIDER ANTEROLATERAL ISCHEMIA ABNORMAL ECG NO PREVIOUS ECGS AVAILABLE Confirmed by MD HENRY, DALE ([id number]) on 03/17/2020 6:53:00 PM Referred By: Confirmed By:DALE FIGUEROA MD
[2020-03-17] MEDS: THIAMINE HCL 100 MG TABLET (FP) PO SCH (22:16)
[2020-03-17] MEDS: MELATONIN 5 MG TABLETS PO SCH (22:17)
[2020-03-18] MEDS: IBUPROFEN 400 MG TABLET (FP) PO PRN (04:08)
[2020-03-18] MEDS: chlordiazePOXIDE HCL 25 MG CAPSULE PO SCH ×4 (05:48→22:17)
--- NOTE | 2020-03-18 06:28 | PN ---
[facility] Progress Note Note: Patient was seen and evaluated in bed with complaint of a fall at 8.00AM yesterday, . Patient reports that he did not inform or report the incident to anyone. He is complaining of left shoulder pain and discomfort rated at 10/10. His left shoulder is swollen with signs of ecchymosis and bruises. Limited range of motion of the left upper extremity and guarding behavior noted. Fall was not witnessed. Fall protocol #1 initiated. Patient is to be transferred to ER for evaluation. Endorsed to Dr. Cary Mg. Vital Signs Temperature 98.6 F 03/18/20 06:46 Pulse Rate 64 03/18/20 06:46 Respiratory Rate 18 03/18/20 06:46 Blood Pressure 113/78 03/18/20 06:46 O2 Sat by Pulse Oximetry (%) 99 03/18/20 06:46 Laboratory Last Values WBC 2.8 K/mm3 (4.0-10.0) L 03/17/20 08:00 RBC 3.76 M/mm3 (4.00-5.60) L 03/17/20 08:00 Hgb 12.0 GM/dL (11.7-16.9) 03/17/20 08:00 Hct 36.5 % (35.4-49) 03/17/20 08:00 MCV 96.9 fl (80-96) H 03/17/20 08:00 MCH 31.9 pg (25.7-33.7) 03/17/20 08:00 MCHC 32.9 g/dl (32.0-35.9) 03/17/20 08:00 RDW 13.5 % (11.9-15.9) 03/17/20 08:00 Plt Count 118 K/MM3 (134-434) L D 03/17/20 08:00 MPV 8.7 fl (7.5-11.1) 03/17/20 08:00 Sodium 139 mmol/L (136-145) 03/17/20 08:00 Potassium 3.6 mmol/L (3.5-5.1) 03/17/20 08:00 Chloride 105 mmol/L (98-107) 03/17/20 08:00 Carbon Dioxide 28 mmol/L (21-32) 03/17/20 08:00 Anion Gap 6 MMOL/L (8-16) L 03/17/20 08:00 BUN 9.2 mg/dL (7-18) 03/17/20 08:00 Creatinine 1.0 mg/dL (0.55-1.3) 03/17/20 08:00 Est GFR (CKD-EPI)AfAm 98.46 03/17/20 08:00 Est GFR (CKD-EPI)NonAf 84.95 03/17/20 08:00 Random Glucose 104 mg/dL (74-106) 03/17/20 08:00 Calcium 8.2 mg/dL (8.5-10.1) L 03/17/20 08:00 Total Bilirubin 0.6 mg/dL (0.2-1) 03/17/20 08:00 AST 79 U/L (15-37) H 03/17/20 08:00 ALT 38 U/L (13-61) 03/17/20 08:00 Alkaline Phosphatase 90 U/L (45-117) 03/17/20 08:00 Total Protein 8.3 g/dl (6.4-8.2) H 03/17/20 08:00 Albumin 2.8 g/dl (3.4-5.0) L 03/17/20 08:00 Syphilis Serology Reactive (NONREACTIVE) A* 03/17/20 08:00 RPR Titer Reactive 1:1 (NONREACTIVE) H 03/17/20 08:00 Action: Ibuprofen 400mg tablet oral ordered Apply ice to shoulder Transfer to ER
[2020-03-18] MEDS: PRENATAL VITAMINS W/ FOLIC ACID TABLET (FP) PO SCH (11:13)
[2020-03-18] MEDS: NICOTINE 14 MG/24 HOURS TOPICAL PATCH TD SCH (11:13)
--- NOTE | 2020-03-18 15:10 | PN ---
S CIWA - CIWA Score Nausea/Vomitin-Mild Nausea/No Vomiting Muscle Tremors: 2 Anxiety: 3 Agitation: 2 Paroxysmal Sweats: No Perspiration Orientation: 0-Oriented Tacttile Disturbances: 0-None Auditory Disturbances: 0-None Visual Disturbances: 0-None Headache: 0-None Present CIWA-Ar Total Score: 8 BHS Progress Note (SOAP) Subjective: 54 years old male was admitted on 03/16/20 for alcohol withdrawal sx management treating with librium detox regiment received information that mr gonzales reports that he fell on 03/17/20 around 8 am no report to staff based on fall protocol unwitnessed fall on fall protocol #[address] of head received nursing reported that mr gonzales refused ct of head return from ER with left shoulder sling for left shoulder muscle sprain left hand wrist and elbow full range of motion good strength to assist mr gonzales up from laying position down from sitting position to lying down on the bed Objective: 03/18/20 15:17 Vital Signs - 24 hr 03/17/20 03/17/20 03/18/20 16:47 20:52 02:03 Temperature 97.3 F L 97.3 F L 98.6 F Pulse Rate 80 77 106 H Respiratory 18 18 20 Rate Blood Pressure 122/84 123/84 112/80 O2 Sat by Pulse 97 99 Oximetry (%) 03/18/20 03/18/20 03/18/20 04:30 06:16 06:30 Temperature 98.1 F 98.6 F 96.6 F L Pulse Rate 64 64 85 Respiratory 18 18 18 Rate Blood Pressure 113/78 113/78 99/79 O2 Sat by Pulse 99 98 Oximetry (%) 03/18/20 03/18/20 06:46 14:30 Temperature 98.6 F 96.9 F L Pulse Rate 64 59 L Respiratory 18 18 Rate Blood Pressure 113/78 116/82 O2 Sat by Pulse 99 100 Oximetry (%) Laboratory Tests 03/17/20 03/17/20 03/17/20 08:00 08:00 08:00 WBC 2.8 L RBC 3.76 L Hgb 12.0 Hct 36.5 MCV 96.9 H MCH 31.9 MCHC 32.9 RDW 13.5 Plt Count 118 L D MPV 8.7 Sodium 139 Potassium 3.6 Chloride 105 Carbon Dioxide 28 Anion Gap 6 L BUN 9.2 Creatinine 1.0 Est GFR (CKD-EPI)AfAm 98.46 Est GFR (CKD-EPI)NonAf 84.95 Random Glucose 104 Calcium 8.2 L Total Bilirubin 0.6 AST 79 H ALT 38 Alkaline Phosphatase 90 Total Protein 8.3 H Albumin 2.8 L Syphilis Serology Reactive A* RPR Titer 03/17/20 08:00 WBC RBC Hgb Hct MCV MCH MCHC RDW Plt Count MPV Sodium Potassium Chloride Carbon Dioxide Anion Gap BUN Creatinine Est GFR (CKD-EPI)AfAm Est GFR (CKD-EPI)NonAf Random Glucose Calcium Total Bilirubin AST ALT Alkaline Phosphatase Total Protein Albumin Syphilis Serology RPR Titer Reactive 1:1 H long history of hiv Assessment: 03/18/20 15:22 alcohol withdrawal left shoulder muscle sprain Plan: librium regiment left shoulder sling
[2020-03-18] MEDS: MELATONIN 5 MG TABLETS PO SCH (22:16)
[2020-03-18] MEDS: THIAMINE HCL 100 MG TABLET (FP) PO SCH (22:17)
[2020-03-19] MEDS ORDERED: chlordiazePOXIDE HCL 10 MG CAPSULE PO PRN
[2020-03-19] MEDS: chlordiazePOXIDE HCL 10 MG CAPSULE PO SCH ×4 (05:07→22:18)
[2020-03-19] MEDS: IBUPROFEN 400 MG TABLET (FP) PO PRN (10:45)
[2020-03-19] MEDS: PRENATAL VITAMINS W/ FOLIC ACID TABLET (FP) PO SCH (10:47)
[2020-03-19] MEDS: NICOTINE 14 MG/24 HOURS TOPICAL PATCH TD SCH (10:48)
--- NOTE | 2020-03-19 12:02 | PN ---
[facility] CIWA - CIWA Score Nausea/Vomitin-Mild Nausea/No Vomiting Muscle Tremors: 1-None Visible, but [place] Anxiety: 1-Mildly Anxious Agitation: 1-Slight > Activity Paroxysmal Sweats: No Perspiration Orientation: 0-Oriented Tacttile Disturbances: 0-None Auditory Disturbances: 0-None Visual Disturbances: 1-Very Mild Sensitivity Headache: 0-None Present CIWA-Ar Total Score: 5 BHS Progress Note (SOAP) Subjective: 54 years old male was admitted on 03/16/20 for alcohol withdrawal sx management treating with librium regiment mr gonzales provides correct [facility] phone number of [phone] for hiv medication verification mr is taking triumeq last 30 days filled on 03/04/20 mr gonzales states that he visits his infectious disease provider twice a month next visit "two weeks" from today resume triumq bactrim ds mr gonzales denies left shoulder pain denies headache denies dizziness full range of motion on left shoulder rejects to use left shoulder sling Objective: 03/19/20 12:17 Vital Signs - 24 hr 03/18/20 03/18/20 03/18/20 14:30 16:30 20:30 Temperature 96.9 F L 97.1 F L 96.8 F L Pulse Rate 59 L 102 H 89 Respiratory 18 18 18 Rate Blood Pressure 116/82 112/65 111/82 O2 Sat by Pulse 100 98 Oximetry (%) 03/19/20 03/19/20 03/19/20 00:30 04:30 06:15 Temperature 97.1 F L 96.9 F L 97.5 F L Pulse Rate 94 H 79 92 H Respiratory 18 18 18 Rate Blood Pressure 109/79 124/58 L 111/76 O2 Sat by Pulse 97 97 97 Oximetry (%) 03/19/20 08:54 Temperature 96.8 F L Pulse Rate 78 Respiratory 20 Rate Blood Pressure 117/81 O2 Sat by Pulse Oximetry (%) Laboratory Tests 03/17/20 03/17/20 03/17/20 08:00 08:00 08:00 WBC 2.8 L RBC 3.76 L Hgb 12.0 Hct 36.5 MCV 96.9 H MCH 31.9 MCHC 32.9 RDW 13.5 Plt Count 118 L D MPV 8.7 Sodium 139 Potassium 3.6 Chloride 105 Carbon Dioxide 28 Anion Gap 6 L BUN 9.2 Creatinine 1.0 Est GFR (CKD-EPI)AfAm 98.46 Est GFR (CKD-EPI)NonAf 84.95 Random Glucose 104 Calcium 8.2 L Total Bilirubin 0.6 AST 79 H ALT 38 Alkaline Phosphatase 90 Total Protein 8.3 H Albumin 2.8 L Syphilis Serology Reactive A* RPR Titer 03/17/20 08:00 WBC RBC Hgb Hct MCV MCH MCHC RDW Plt Count MPV Sodium Potassium Chloride Carbon Dioxide Anion Gap BUN Creatinine Est GFR (CKD-EPI)AfAm Est GFR (CKD-EPI)NonAf Random Glucose Calcium Total Bilirubin AST ALT Alkaline Phosphatase Total Protein Albumin Syphilis Serology RPR Titer Reactive 1:1 H low wbc due to hiv status Assessment: 03/19/20 12:17 alcohol withdrawal 03/19/20 12:18 hiv Plan: librium regiment triumq
[2020-03-19] MEDS: ABACAVIR/DOLUTEGRAVIR/LAMIVUDI (TRIUMEQ) TABLET -NF PO SCH (14:28)
[2020-03-19] MEDS: SULFAMETHOXAZOLE/TRIMETHOPRIM 800MG/160MG D.S. TABLET PO SCH (14:28)
[2020-03-19] MEDS: THIAMINE HCL 100 MG TABLET (FP) PO SCH (22:17)
[2020-03-19] MEDS: MELATONIN 5 MG TABLETS PO SCH (22:17)
[2020-03-20] MEDS: chlordiazePOXIDE HCL 10 MG CAPSULE PO SCH ×2 (05:37→18:10)
[2020-03-20] MEDS: IBUPROFEN 400 MG TABLET (FP) PO PRN ×2 (05:46→18:10)
[2020-03-20] MEDS: PRENATAL VITAMINS W/ FOLIC ACID TABLET (FP) PO SCH (09:16)
[2020-03-20] MEDS: ABACAVIR/DOLUTEGRAVIR/LAMIVUDI (TRIUMEQ) TABLET -NF PO SCH (09:16)
[2020-03-20] MEDS: SULFAMETHOXAZOLE/TRIMETHOPRIM 800MG/160MG D.S. TABLET PO SCH (09:16)
[2020-03-20] MEDS: NICOTINE 14 MG/24 HOURS TOPICAL PATCH TD SCH (09:18)
--- NOTE | 2020-03-20 15:17 | PN ---
[facility] CIWA - CIWA Score Nausea/Vomitin-No Nausea/No Vomiting Muscle Tremors: 1-None Visible, but [place] Anxiety: 1-Mildly Anxious Agitation: 0-Normal Activity Paroxysmal Sweats: No Perspiration Orientation: 0-Oriented Tacttile Disturbances: 0-None Auditory Disturbances: 0-None Visual Disturbances: 1-Very Mild Sensitivity Headache: 0-None Present CIWA-Ar Total Score: 3 BHS Progress Note (SOAP) Subjective: 54 years old male was admitted on 03/16/20 for alcohol withdrawal sx management treating with librium detox regiment feels better today less tremor mild restlessness received methadone 120 mg today left arm skin warm and fingers / elbow full range of motion left shoulder sling in place denies pain able to perform ADL's independently Objective: 03/20/20 15:22 Vital Signs - 24 hr 03/19/20 03/20/20 03/20/20 16:48 05:33 08:49 Temperature 97.3 F L 97.8 F 97.3 F L Pulse Rate 93 H 88 102 H Respiratory 18 18 18 Rate Blood Pressure 102/65 100/67 98/64 O2 Sat by Pulse 97 97 Oximetry (%) 03/20/20 12:53 Temperature 97.3 F L Pulse Rate 83 Respiratory 16 Rate Blood Pressure 100/65 O2 Sat by Pulse 96 Oximetry (%) Laboratory Tests 03/16/20 03/17/20 03/17/20 22:00 08:00 08:00 WBC 2.8 L RBC 3.76 L Hgb 12.0 Hct 36.5 MCV 96.9 H MCH 31.9 MCHC 32.9 RDW 13.5 Plt Count 118 L D MPV 8.7 Sodium Potassium Chloride Carbon Dioxide Anion Gap BUN Creatinine Est GFR (CKD-EPI)AfAm Est GFR (CKD-EPI)NonAf Random Glucose Calcium Total Bilirubin AST ALT Alkaline Phosphatase Total Protein Albumin Syphilis Serology Reactive A* RPR Titer COVID-19 (MARYANN) Not detected 03/17/20 03/17/20 08:00 08:00 WBC RBC Hgb Hct MCV MCH MCHC RDW Plt Count MPV Sodium 139 Potassium 3.6 Chloride 105 Carbon Dioxide 28 Anion Gap 6 L BUN 9.2 Creatinine 1.0 Est GFR (CKD-EPI)AfAm 98.46 Est GFR (CKD-EPI)NonAf 84.95 Random Glucose 104 Calcium 8.2 L Total Bilirubin 0.6 AST 79 H ALT 38 Alkaline Phosphatase 90 Total Protein 8.3 H Albumin 2.8 L Syphilis Serology RPR Titer Reactive 1:1 H COVID-19 (MARYANN) hiv with low wbc history of syphilis treated booster penicillin x 1 Assessment: 03/20/20 15:23 alcohol withdrawal hiv syphilis 03/20/20 15:26 left shoulder Plan: librium regiment triumeq po 1 tab daily + bactrim ds po daily penicilline IM x 1
[2020-03-20] MEDS: THIAMINE HCL 100 MG TABLET (FP) PO SCH (22:32)
[2020-03-20] MEDS: MELATONIN 5 MG TABLETS PO SCH (22:32)
[2020-03-21] MEDS ORDERED: chlordiazePOXIDE HCL 10 MG CAPSULE PO ONE (05:00)
[2020-03-21] MEDS: IBUPROFEN 400 MG TABLET (FP) PO PRN (05:32)
[2020-03-21 06:40] VITALS: PULSE 88; TEMP 96.9
[2020-03-21] MEDS: SULFAMETHOXAZOLE/TRIMETHOPRIM 800MG/160MG D.S. TABLET PO SCH (09:32)
[2020-03-21] MEDS: PRENATAL VITAMINS W/ FOLIC ACID TABLET (FP) PO SCH (09:32)
[2020-03-21] MEDS: ABACAVIR/DOLUTEGRAVIR/LAMIVUDI (TRIUMEQ) TABLET -NF PO SCH (09:33)
[2020-03-21] MEDS: NICOTINE 14 MG/24 HOURS TOPICAL PATCH TD SCH (09:33)
[2020-03-21 09:39] VITALS: BP 94/72
--- NOTE | 2020-03-21 15:08 | DS ---
[facility] Detox Discharge Summary Admission Date: 03/16/20 Discharge Date: 03/21/20 - History Present History: Alcohol Dependence Additional Comments: 54 years old male was admitted on 03/16/20 for alcohol withdrawal sx management treated with librium detox regiment mr gonzales has completed the librium regiment and is tolerated well mr reported unwitnessed fall 24 hours after the incident transferred to [facility] for ct and x ray of the left shoulder returned from [facility] with left shoulder sling ADL's independent denies left shoulder pain left hand fingers and elbow full range of motion skin warm brisk capillary refilled dress and undress with ease General Appearance: Yes: no Distress, mild Tremorous, less Vital Signs - 24 hr 03/20/20 03/20/20 03/21/20 16:44 20:52 06:39 Temperature 97.3 F L 97.3 F L 96.9 F L Pulse Rate 80 70 88 Respiratory 18 18 18 Rate Blood Pressure 93/58 L 122/74 100/61 O2 Sat by Pulse 96 99 97 Oximetry (%) 03/21/20 08:39 Temperature 96.9 F L Pulse Rate 88 Respiratory 18 Rate Blood Pressure 94/72 O2 Sat by Pulse Oximetry (%) Anxious HEENTM: Yes: Within Normal Limits Respiratory: Yes: Lungs Clear, Normal Breath Sounds, No Respiratory Distress Neck: Yes: Within Normal Limits Breast: Yes: Breast Exam Deferred Cardiology: Yes: [id number] regular rate rhythm Abdominal: Yes: Normal Bowel Sounds Genitourinary: Yes: Within Normal Limits Back: Yes: Normal Inspection Musculoskeletal: Yes: left shoulder muscle sprain Extremities: Yes: mild Tremors, Other (right leg neuropathy) Neurological: Yes: Within Normal Limits Integumentary: Yes: Warm Lymphatic: Yes: Within Normal Limits Pertinent Past History: time for discharge 45 minutes transferred order set from detox to rehab - Physical Exam Results Vital Signs: Vital Signs Temperature 96.9 F L 03/21/20 08:39 Pulse Rate 88 03/21/20 08:39 Respiratory Rate 18 03/21/20 08:39 Blood Pressure 94/72 03/21/20 08:39 O2 Sat by Pulse Oximetry (%) 97 03/21/20 06:39 Pertinent Admission Physical Exam Findings: alcohol withdrawal Laboratory Tests 03/16/20 03/17/20 03/17/20 22:00 08:00 08:00 WBC 2.8 L RBC 3.76 L Hgb 12.0 Hct 36.5 MCV 96.9 H MCH 31.9 MCHC 32.9 RDW 13.5 Plt Count 118 L D MPV 8.7 Sodium Potassium Chloride Carbon Dioxide Anion Gap BUN Creatinine Est GFR (CKD-EPI)AfAm Est GFR (CKD-EPI)NonAf Random Glucose Calcium Total Bilirubin AST ALT Alkaline Phosphatase Total Protein Albumin Syphilis Serology Reactive A* RPR Titer COVID-19 (MARYANN) Not detected 03/17/20 03/17/20 08:00 08:00 WBC RBC Hgb Hct MCV MCH MCHC RDW Plt Count MPV Sodium 139 Potassium 3.6 Chloride 105 Carbon Dioxide 28 Anion Gap 6 L BUN 9.2 Creatinine 1.0 Est GFR (CKD-EPI)AfAm 98.46 Est GFR (CKD-EPI)NonAf 84.95 Random Glucose 104 Calcium 8.2 L Total Bilirubin 0.6 AST 79 H ALT 38 Alkaline Phosphatase 90 Total Protein 8.3 H Albumin 2.8 L Syphilis Serology RPR Titer Reactive 1:1 H COVID-19 (MARYANN) hiv with low wbc syphilis contacted treated - Treatment Hospital Course: Detox Protocol Followed, Detoxed Safely, Responded well, Discharged Condition Good, Rehab Referral Accepted Patient has Accepted a [facility] Referral to: [facility] - Medication Discharge Medications: Ambulatory Orders Abacavir/Dolutegravir/Lamivudi [Triumeq 600-50-300 mg Tablet] 1 each PO DAILY 10/12/18 Fluconazole [Diflucan -] 100 mg PO DAILY 5 Days #5 tablet 10/14/18 Estrogens, Conjugated [Premarin] 1.25 mg PO DAILY 12/21/19 Multivitamins [Multivit ([facility] Formulary)] 1 tab PO DAILY 12/21/19 Sulfamethoxazole/Trimethoprim [Bactrim DS -] 1 tab PO DAILY 12/21/19 - Diagnosis (1) Substance induced mood disorder Status: Suspected (2) Alcohol dependence with uncomplicated withdrawal Status: Acute (3) Syphilis contact, treated Status: Chronic (4) Weight loss Status: Chronic (5) HIV (human immunodeficiency virus infection) Status: Chronic Qualifiers: HIV symptom status: asymptomatic Qualified Code(s): Z21 - Asymptomatic human immunodeficiency virus [HIV] infection status (6) Nicotine dependence Status: Acute Qualifiers: Nicotine product type: cigarettes Substance use status: in withdrawal Qualified Code(s): F17.213 - Nicotine dependence, cigarettes, with withdrawal (7) Muscle strain of left shoulder region Status: Acute Qualifiers: Encounter type: subsequent encounter Qualified Code(s): S46.912D - Strain of unspecified muscle, fascia and tendon at shoulder and upper arm level, left arm, subsequent encounter - AMA Did Patient Leave Against Medical Advice: No CIWA Score - CIWA Score Nausea/Vomitin-No Nausea/No Vomiting Muscle Tremors: 1-None Visible, but [place] Anxiety: 1-Mildly Anxious Agitation: 0-Normal Activity Paroxysmal Sweats: No Perspiration Orientation: 0-Oriented Tacttile Disturbances: 0-None Auditory Disturbances: 0-None Visual Disturbances: 0-None Headache: 0-None Present CIWA-Ar Total Score: 2
== END 2020-03-21 12:43 | disposition other institution (70) | DRG 775 ==
LOC: YASAS 13:59 → Y3N 21:44
PROVIDERS: ADMIT Allergy & Immunology; ATTEND Allergy & Immunology
PROC: HZ2ZZZZ Detoxification Services for Substance Abuse Treatment (ICD-10-PCS; principal; 2020-03-16)
DX: F10.230 Alcohol dependence with withdrawal, uncomplicated (principal); F17.213 Nicotine dependence, cigarettes, with withdrawal; F19.24 Other psychoactive substance dependence with psychoactive substance-induced mood disorder; F64.0 Transsexualism; F41.9 Anxiety disorder, unspecified; Z21 Asymptomatic human immunodeficiency virus [HIV] infection status; D72.819 Decreased white blood cell count, unspecified; D64.9 Anemia, unspecified; G62.9 Polyneuropathy, unspecified; G47.00 Insomnia, unspecified; R94.31 Abnormal electrocardiogram [ECG] [EKG]; R63.4 Abnormal weight loss; Z68.1 Body mass index [BMI] 19.9 or less, adult; Z20.2 Contact with and (suspected) exposure to infections with a predominantly sexual mode of transmission; Z87.890 Personal history of sex reassignment; S46.812A Strain of other muscles, fascia and tendons at shoulder and upper arm level, left arm, initial encounter; W19.XXXA Unspecified fall, initial encounter; Y93.89 Activity, other specified; Y92.239 Unspecified place in hospital as the place of occurrence of the external cause; Y99.8 Other external cause status
CPT/HCPCS: 36415; 80053; 85027; 86593; 86780; 93005; 93010; U0003

== ENCOUNTER 2020-03-21 15:04 | Inpatient (IN) | payer OTHER ==
[2020-03-21] MEDS ORDERED: MAGNESIUM HYDROX 2400MG/30ML ORAL SUSPENSION 30 ML CUP PO PRN (15:10)
[2020-03-21] MEDS ORDERED: MAGNESIUM CITRATE 300 ML BOTTLE PO PRN (15:10)
[2020-03-21] MEDS ORDERED: P-EPHED 60MG/TRIPROLIDI 2.5MG TABLET PO PRN (15:10)
[2020-03-21] MEDS ORDERED: NICOTINE POLACRILEX 2 MG GUM BC PRN (15:10)
[2020-03-21] MEDS ORDERED: LOPERAMIDE HCL 2 MG CAPSULE PO PRN (15:10)
[2020-03-21] MEDS ORDERED: guaiFENesin 200 MG/10 ML 10 ML UNIT-DOSE CUPS PO PRN (15:10)
[2020-03-21] MEDS ORDERED: MAG HYDROX/AL HYDROX/SIMETH 30 ML UNIT-DOSE CUP PO PRN (15:10)
--- NOTE | 2020-03-21 15:10 | HP ---
[facility] Rehab Assess/Revision - Admission History Admitted to Rehab from: [facility] Date of Admission to Rehab: 03/21/20 - Findings Detox History & Physical reviewed: Yes Concur with findings: Yes Comments/Additional Findings: transferred from detox to rehab admission as per protocol Inpatient Rehab Admission - Rehab Decision to Admit Inpatient rehab admission?: Yes - Initial Determination Are CD services needed?: Yes Free of communicable disease: Yes Not in need of hospitalization: Yes - Rehab Admission Criteria Previous failed treatment: Yes Poor recovery environment: Yes Comorbidities: Yes Lacks judgement: Yes Patient is meeting Inpatient Rehab admission criteria:: Yes
[2020-03-21] MEDS: MELATONIN 5 MG TABLETS PO SCH (21:29)
[2020-03-21] MEDS: THIAMINE HCL 100 MG TABLET (FP) PO SCH (21:29)
[2020-03-22] MEDS: IBUPROFEN 400 MG TABLET (FP) PO PRN ×3 (02:27→21:21)
[2020-03-22] MEDS: ACETAMINOPHEN 325 MG TABLET (FP) PO PRN (06:20)
[2020-03-22] MEDS: ABACAVIR/DOLUTEGRAVIR/LAMIVUDI (TRIUMEQ) TABLET -NF PO SCH (07:45)
[2020-03-22] MEDS: NICOTINE 14 MG/24 HOURS TOPICAL PATCH TD SCH (09:29)
[2020-03-22] MEDS: PRENATAL VITAMINS W/ FOLIC ACID TABLET (FP) PO SCH (09:29)
[2020-03-22] MEDS: SULFAMETHOXAZOLE/TRIMETHOPRIM 800MG/160MG D.S. TABLET PO SCH (09:30)
--- NOTE | 2020-03-22 13:24 | PN ---
[facility] Progress Note Note: Vital Signs Temperature 98.2 F 03/22/20 06:18 Pulse Rate 80 03/22/20 06:18 Respiratory Rate 18 03/22/20 06:18 Blood Pressure 92/60 03/22/20 06:18 O2 Sat by Pulse Oximetry (%) 96 03/22/20 06:18 Patient reports he is on HRT as he identifies as transgender. He he was pr escribed Premarin 1.25mg daily upon last admission 12/2019. Previous admission chart/medication hx reviewed and HRT was ordered at last admission. Premarin 1.25mg daily to start today ordered.
[2020-03-22] MEDS: ESTROGENS,CONJUGATED 1.25 MG TABLET PO SCH (14:40)
[2020-03-22] MEDS: MELATONIN 5 MG TABLETS PO SCH (21:20)
[2020-03-22] MEDS: THIAMINE HCL 100 MG TABLET (FP) PO SCH (21:20)
[2020-03-23] MEDS: ACETAMINOPHEN 325 MG TABLET (FP) PO PRN ×3 (02:41→21:06)
[2020-03-23] MEDS: ABACAVIR/DOLUTEGRAVIR/LAMIVUDI (TRIUMEQ) TABLET -NF PO SCH (07:07)
[2020-03-23] MEDS: SULFAMETHOXAZOLE/TRIMETHOPRIM 800MG/160MG D.S. TABLET PO SCH (09:48)
[2020-03-23] MEDS: NICOTINE 14 MG/24 HOURS TOPICAL PATCH TD SCH (09:48)
[2020-03-23] MEDS: ESTROGENS,CONJUGATED 1.25 MG TABLET PO SCH (09:49)
[2020-03-23] MEDS: IBUPROFEN 400 MG TABLET (FP) PO PRN ×2 (09:50→17:55)
[2020-03-23] MEDS: PRENATAL VITAMINS W/ FOLIC ACID TABLET (FP) PO SCH (09:50)
[2020-03-23] MEDS: MELATONIN 5 MG TABLETS PO SCH (21:07)
[2020-03-23] MEDS: THIAMINE HCL 100 MG TABLET (FP) PO SCH (21:07)
[2020-03-24] MEDS: IBUPROFEN 400 MG TABLET (FP) PO PRN ×3 (02:56→18:01)
[2020-03-24] MEDS: ABACAVIR/DOLUTEGRAVIR/LAMIVUDI (TRIUMEQ) TABLET -NF PO SCH (07:02)
[2020-03-24] MEDS: ACETAMINOPHEN 325 MG TABLET (FP) PO PRN ×3 (07:03→21:08)
[2020-03-24] MEDS: NICOTINE 14 MG/24 HOURS TOPICAL PATCH TD SCH (09:42)
[2020-03-24] MEDS: SULFAMETHOXAZOLE/TRIMETHOPRIM 800MG/160MG D.S. TABLET PO SCH (09:42)
[2020-03-24] MEDS: ESTROGENS,CONJUGATED 1.25 MG TABLET PO SCH (09:42)
[2020-03-24] MEDS: PRENATAL VITAMINS W/ FOLIC ACID TABLET (FP) PO SCH (09:43)
[2020-03-24] MEDS: THIAMINE HCL 100 MG TABLET (FP) PO SCH (21:07)
[2020-03-24] MEDS: MELATONIN 5 MG TABLETS PO SCH (21:07)
[2020-03-25] MEDS: IBUPROFEN 400 MG TABLET (FP) PO PRN ×3 (02:11→19:20)
[2020-03-25] MEDS: ACETAMINOPHEN 325 MG TABLET (FP) PO PRN ×3 (06:19→21:08)
[2020-03-25] MEDS: ABACAVIR/DOLUTEGRAVIR/LAMIVUDI (TRIUMEQ) TABLET -NF PO SCH (07:12)
[2020-03-25] MEDS ORDERED: PT OWN MED DRAWER 7, Y5N ONE (08:53)
[2020-03-25] MEDS: PRENATAL VITAMINS W/ FOLIC ACID TABLET (FP) PO SCH (09:46)
[2020-03-25] MEDS: ESTROGENS,CONJUGATED 1.25 MG TABLET PO SCH (09:46)
[2020-03-25] MEDS: NICOTINE 14 MG/24 HOURS TOPICAL PATCH TD SCH (09:46)
[2020-03-25] MEDS: SULFAMETHOXAZOLE/TRIMETHOPRIM 800MG/160MG D.S. TABLET PO SCH (09:46)
[2020-03-25] MEDS: LIDOCAINE 5% TOPICAL PATCH TP SCH (09:46)
[2020-03-25] MEDS: HYDROCORTISONE 1% TOPICAL CREAM 30 GM TUBE TP SCH ×2 (09:48→21:35)
--- NOTE | 2020-03-25 09:59 | PN ---
[facility] Progress Note Note: PATIENT C/O LEFT SHOULDER DISCOMFORT. HE DENIES ANY RECENT INJURIES. STATES DISCOMFORT DULL AND NON-RADIATING. ALSO C/O ITCHY DRY SKIN TO EARS. Vital Signs Temperature 97.3 F L 03/25/20 05:58 Pulse Rate 90 03/25/20 05:58 Respiratory Rate 18 03/25/20 05:58 Blood Pressure 107/70 03/25/20 05:58 O2 Sat by Pulse Oximetry (%) 96 03/25/20 05:58 PE ALERT AND ORIENTED X 3 SKIN WARM AND DRY +PERRLA, EOMS INTACT BL BILATERAL AURICLES WITH DRY, FLAKY SKIN. NO REDNESS OR SWELLING EXT FULL ROM B/L UPPER EXTREMITIES NO VISIBLE SWELLING OF LEFT SHOULDER NOTED A/P LEFT SHOULDER DISCOMFORT AURICULAR PRURITIS LIDOCAINE PATCH TO LEFT SHOULDER ORDERED HYDROCORTISONE CR TO EARS BID MONITOR CLINICALLY
--- NOTE | 2020-03-25 14:57 | CONSULT ---
[facility] Psychiatric Consult - Data Date of interview: 03/25/20 Admission source: 3N Identifying data: Mr Stuart is a 54 years old transgender male to female, unemployed receiving public assistance living in an [facility] hotel admitted from detox on 03/21/20 for inpatient rehabilitation for alcohol and cocaine Substance Abuse History: Reports history of alcohol and cocaine use. Refer to addiction counseor's summary for further information Medical History: Significant for HIV since 1990, neuropathy right leg and history of anemia and treatment for syphilis. Smoke cigarettes 1 ppd Psychiatric History: Patient is known for four previous admissions to this facility. He denies history of previous psychiatric treatment. However, reports a long standing history of insomnia. During a past admission to this facility mid December 2019. he was prescribed Trazadone 50 mg/hs for insomnia by MEENA Mason. At present, reports feeling mildly anxious and sleeping poorly. Requests to be ordered medication stronger than Trazadone Physical/Sexual Abuse/Trauma History: [facility] age 6 [facility] 12[facility] Status Exam - Mental Status Exam Alert and Oriented to: Time, Place, Person Cognitive Function: Fair Patient Appearance: Well Groomed Mood: Anxious (mildly) Affect: Appropriate Patient Behavior: Cooperative Speech Pattern: Clear Voice Loudness: Normal Thought Process: Intact, Goal Oriented Thought Disorder: Not Present Hallucinations: Denies Suicidal Ideation: Denies Homicidal Ideation: Denies Insight/Judgement: Poor Sleep: Poorly Appetite: Good Psychiatric Findings - Problem List ([place] 1, 2,3) (1) Substance-induced anxiety disorder Current Visit: Yes Status: Acute (2) Substance-induced sleep disorder Current Visit: Yes Status: Acute (3) Alcohol dependence with uncomplicated withdrawal Current Visit: No Status: Acute (4) Cocaine dependence Current Visit: No Status: Acute Qualifiers: Substance use status: uncomplicated Qualified Code(s): F14.20 - Cocaine dependence, uncomplicated (5) Nicotine dependence Current Visit: No Status: Chronic Qualifiers: Nicotine product type: cigarettes Substance use status: in withdrawal Qualified Code(s): F17.213 - Nicotine dependence, cigarettes, with withdrawal (6) HIV (human immunodeficiency virus infection) Current Visit: No Status: Chronic Qualifiers: HIV symptom status: asymptomatic Qualified Code(s): Z21 - Asymptomatic human immunodeficiency virus [HIV] infection status (7) Anemia Current Visit: Yes Status: Resolved (8) Neuropathy Current Visit: Yes Status: Chronic (9) Syphilis contact, treated Current Visit: No Status: Resolved - Initial Treatment Plan Initial Treatment Plan: 1) Start Belsomra 10 mg po HS prn for insomnia. 2) Continue inpatient rehabilitation
[2020-03-25] MEDS: MELATONIN 5 MG TABLETS PO SCH (21:07)
[2020-03-25] MEDS: LIDOCAINE PATCH REMOVAL MC SCH (21:07)
[2020-03-25] MEDS: THIAMINE HCL 100 MG TABLET (FP) PO SCH (21:07)
[2020-03-25] MEDS ORDERED: SUVOREXANT 10 MG TABLET PO PRN (22:00)
[2020-03-26] MEDS: IBUPROFEN 400 MG TABLET (FP) PO PRN ×3 (01:26→18:53)
[2020-03-26] MEDS: ACETAMINOPHEN 325 MG TABLET (FP) PO PRN ×3 (06:32→21:25)
[2020-03-26] MEDS: ABACAVIR/DOLUTEGRAVIR/LAMIVUDI (TRIUMEQ) TABLET -NF PO SCH (07:07)
[2020-03-26] MEDS ORDERED: PT OWN MED DRAWER 7, Y5N ONE (08:38)
[2020-03-26] MEDS: PRENATAL VITAMINS W/ FOLIC ACID TABLET (FP) PO SCH (09:45)
[2020-03-26] MEDS: NICOTINE 14 MG/24 HOURS TOPICAL PATCH TD SCH (09:46)
[2020-03-26] MEDS: HYDROCORTISONE 1% TOPICAL CREAM 30 GM TUBE TP SCH ×2 (09:46→21:24)
[2020-03-26] MEDS: ESTROGENS,CONJUGATED 1.25 MG TABLET PO SCH (09:46)
[2020-03-26] MEDS: SULFAMETHOXAZOLE/TRIMETHOPRIM 800MG/160MG D.S. TABLET PO SCH (09:46)
[2020-03-26] MEDS: LIDOCAINE 5% TOPICAL PATCH TP SCH (09:49)
--- NOTE | 2020-03-26 14:39 | PN ---
S Progress Note Note: Patient reports sleeping poorly despite taking Belsomra 10 mg/hs prn for insomnia. Will increase Belsomra dosage to 15 mg/hs prn for insomnia
[2020-03-26] MEDS: THIAMINE HCL 100 MG TABLET (FP) PO SCH (21:23)
[2020-03-26] MEDS: LIDOCAINE PATCH REMOVAL MC SCH (21:23)
[2020-03-26] MEDS: MELATONIN 5 MG TABLETS PO SCH (21:23)
[2020-03-26] MEDS: SUVOREXANT 15 MG TABLET PO PRN (21:25)
[2020-03-27] MEDS: IBUPROFEN 400 MG TABLET (FP) PO PRN ×3 (02:44→21:27)
[2020-03-27] MEDS: ACETAMINOPHEN 325 MG TABLET (FP) PO PRN ×2 (06:42→17:03)
[2020-03-27] MEDS: ABACAVIR/DOLUTEGRAVIR/LAMIVUDI (TRIUMEQ) TABLET -NF PO SCH (07:22)
[2020-03-27] MEDS ORDERED: PT OWN MED DRAWER 7, Y5N ONE (08:45)
[2020-03-27] MEDS: PRENATAL VITAMINS W/ FOLIC ACID TABLET (FP) PO SCH (09:51)
[2020-03-27] MEDS: NICOTINE 14 MG/24 HOURS TOPICAL PATCH TD SCH (09:52)
[2020-03-27] MEDS: HYDROCORTISONE 1% TOPICAL CREAM 30 GM TUBE TP SCH ×2 (09:52→21:29)
[2020-03-27] MEDS: LIDOCAINE 5% TOPICAL PATCH TP SCH (09:52)
[2020-03-27] MEDS: ESTROGENS,CONJUGATED 1.25 MG TABLET PO SCH (09:52)
[2020-03-27] MEDS: SULFAMETHOXAZOLE/TRIMETHOPRIM 800MG/160MG D.S. TABLET PO SCH (09:53)
[2020-03-27] MEDS: THIAMINE HCL 100 MG TABLET (FP) PO SCH (21:27)
[2020-03-27] MEDS: SUVOREXANT 15 MG TABLET PO PRN (21:28)
[2020-03-27] MEDS: LIDOCAINE PATCH REMOVAL MC SCH (21:29)
[2020-03-27] MEDS: MELATONIN 5 MG TABLETS PO SCH (21:29)
[2020-03-28] MEDS: IBUPROFEN 400 MG TABLET (FP) PO PRN ×2 (03:16→09:44)
[2020-03-28] MEDS ORDERED: MASKS NR ONE (06:41)
[2020-03-28 06:58] VITALS: BP 128/69; PULSE 73; TEMP 98
[2020-03-28] MEDS: ABACAVIR/DOLUTEGRAVIR/LAMIVUDI (TRIUMEQ) TABLET -NF PO SCH (07:50)
--- NOTE | 2020-03-28 08:38 | DS ---
[facility] Rehab Discharge Summary - [facility] Rehab Discharge Summary Admission Date: 03/21/20 Discharge Date: 03/28/20 - History Present History: Alcohol dependence, Cocaine dependence Pertinent Past History: HIV+ Anemia Neuropathy Syphilis contact, treated Mood Disorder - Discharge Physical Exam Vital Signs: Vital Signs Temperature 98 F 03/28/20 05:40 Pulse Rate 73 03/28/20 05:40 Respiratory Rate 18 03/28/20 05:40 Blood Pressure 128/69 03/28/20 05:40 O2 Sat by Pulse Oximetry (%) 97 03/28/20 05:40 Alert o x 3 nad;no resp difficulty oob ambulating with steady gait Active FROM,all limbs. Pertinent Admission Physical Exam Findings: Unremarkable from detox on admission to rehab. - Treatment Discharge Condition: Discharge condition good Hospital Course: Pt completed rehab and has been referred to CD aftercare to [facility]. Pt has primary care at [facility] in [place], [place] with Dr. Nicolas Freedman. - Medication Discharge Medications: Ambulatory Orders Multivitamins [Multivit ([facility] Formulary)] 1 tab PO DAILY 12/21/19 Abacavir/Dolutegravir/Lamivudi [Triumeq 600-50-300 mg Tablet] 1 each PO DAILY 30 Days #30 tab-cap 03/27/20 Estrogens, Conjugated [Premarin] 1.25 mg PO DAILY 30 Days #30 tab-cap 03/27/20 Fluconazole [Diflucan -] 100 mg PO DAILY 5 Days #5 tablet 03/27/20 Sulfamethoxazole/Trimethoprim [Bactrim DS -] 1 tab PO DAILY 14 Days #14 tab-cap 03/27/20 - Medication-Assisted Treatment (MAT) Medication-Assisted Treatment (MAT): No - Discharge Instructions Diet, activity, other medical instructions: Diet:Regular Activity: oob ad rainer Other medical instructions:Follow up with CD aftercare and primary care as recommended. - Diagnosis (1) Alcohol use disorder Status: Chronic (2) Cocaine dependence Status: Chronic Qualifiers: Substance use status: uncomplicated Qualified Code(s): F14.20 - Cocaine dependence, uncomplicated (3) HIV (human immunodeficiency virus infection) Status: Chronic Qualifiers: HIV symptom status: unspecified Qualified Code(s): B20 - Human immunodeficiency virus [HIV] disease (4) Neuropathy Status: Chronic (5) Nicotine dependence Status: Chronic Qualifiers: Nicotine product type: cigarettes Substance use status: uncomplicated Qualified Code(s): F17.210 - Nicotine dependence, cigarettes, uncomplicated - Follow-up Referral Minutes to complete discharge: 25 - AMA Did Patient Leave Against Medical Advice: No
[2020-03-28] MEDS ORDERED: PT OWN MED DRAWER 7, Y5N ONE (08:40)
[2020-03-28] MEDS: PRENATAL VITAMINS W/ FOLIC ACID TABLET (FP) PO SCH (09:45)
[2020-03-28] MEDS: ESTROGENS,CONJUGATED 1.25 MG TABLET PO SCH (09:45)
[2020-03-28] MEDS: SULFAMETHOXAZOLE/TRIMETHOPRIM 800MG/160MG D.S. TABLET PO SCH (09:45)
[2020-03-28] MEDS: LIDOCAINE 5% TOPICAL PATCH TP SCH (09:46)
[2020-03-28] MEDS: NICOTINE 14 MG/24 HOURS TOPICAL PATCH TD SCH (09:46)
== END 2020-03-28 09:50 | disposition home or self-care (01) | DRG 772 ==
LOC: YASAS 15:04 → Y3W 15:08
PROVIDERS: ADMIT Allergy & Immunology; ATTEND Allergy & Immunology
PROC: HZ42ZZZ Group Counseling for Substance Abuse Treatment, Cognitive-Behavioral (ICD-10-PCS; principal; 2020-03-21)
DX: F10.20 Alcohol dependence, uncomplicated (principal); F14.20 Cocaine dependence, uncomplicated; F17.210 Nicotine dependence, cigarettes, uncomplicated; F19.280 Other psychoactive substance dependence with psychoactive substance-induced anxiety disorder; F19.282 Other psychoactive substance dependence with psychoactive substance-induced sleep disorder; F39 Unspecified mood [affective] disorder; F64.0 Transsexualism; Z21 Asymptomatic human immunodeficiency virus [HIV] infection status; G62.9 Polyneuropathy, unspecified; G47.00 Insomnia, unspecified; Z86.2 Personal history of diseases of the blood and blood-forming organs and certain disorders involving the immune mechanism; Z62.810 Personal history of physical and sexual abuse in childhood; Z20.2 Contact with and (suspected) exposure to infections with a predominantly sexual mode of transmission; Z79.890 Hormone replacement therapy; Z56.0 Unemployment, unspecified
CPT/HCPCS: J1410

== ENCOUNTER 2020-05-21 11:02 | Inpatient (IN) | payer OTHER ==
--- OUTSIDE RECORDS SUMMARY | 2020-05-21 11:07 | XMS ---
:1965 Author Organization [facility] Care Team Providers Name Role Phone ED STAFF PHYSICIAN, STAFF Unavailable Unavailable ED STAFF PHYSICIAN Unavailable Unavailable ZUNASSIGNED Unavailable Unavailable Re-disclosure Warning The records that you are about to access may contain information from federally- assisted alcohol or drug abuse programs. If such information is present, then the following federally mandated warning applies: This information has been disclosed to you from records protected by federal confidentiality rules (42 CFR part 2). The federal rules prohibit you from making any further disclosure of this information unless further disclosure is expressly permitted by the written consent of the person to whom it pertains or as otherwise permitted by 42 CFR part 2. A general authorization for the release of medical or other information is NOT sufficient for this purpose. The Federal rules restrict any use of the information to criminally investigate or prosecute any alcohol or drug abuse patient.The records that you are about to access may contain highly sensitive health information, the redisclosure of which is protected by Article 27-F of the [facility] Public Health law. If you continue you may haveaccess to information: Regarding HIV / AIDS; Provided by facilities licensed or operated by the [facility] Office of Mental Health; or Provided by the [facility] Office for People With Developmental Disabilities. If such information is present, then the following [facility] mandated warning applies: This information has been disclosed to you from confidential records which are protected by state law. State law prohibits you from making any further disclosure of this information without the specific written consent of the person to whom it pertains, or as otherwise permitted by law. Any unauthorized further disclosure in violation of state law may result in a fine or retirement sentence or both. A general authorization for the release of medical or other information is NOT sufficient authorization for further disclosure. Encounters Encounter Providers Location Date Indications Data Source(s ) Emergency Attender: ED STAFF H 03/18/2020 [facility] PHYSICIANAttender: 08:05:00 AM [facility] STAFF ED STAFF EDT - PHYSICIANAdmitter: ED 03/18/2020 STAFF 02:28:00 PM PHYSICIANReferrer: EDT ZUNASSIGNED Patient discharged. Insurance Providers Payer name Policy type Policy ID Covered Covered alliance party's Policy P daysi / Coverage alliance party ID relationship to Fofana Inf ormation type fofana BH-BEACON [id number] SP [id number] AMIDACARE -BEACON [id number] SP [id number] AMIDACARE AMIDACARE W [id number] 01 [id number] W [id number] 01 [id number] -BEACON [id number] SP [id number] AMIDACARE -BEACON [id number] SP [id number] AMIDACARE Problems, Conditions, and Diagnoses Code Display Name Description Problem Type Effective Dates Data Source(s) Y99.9 Unspecified UNSPECIFIED Diagnosis 03/18/2020 [place] [facility] external cause EXTERNAL CAUSE 08:05:00 AM EDT [facility] status STATUS Y92.[address] Diagnosis 03/18/2020 [facility] or not applicable OR NOT APPLICABLE 08:05:00 AM [facility] Y93.9 Activity, ACTIVITY, Diagnosis 03/18/2020 [facility] unspecified UNSPECIFIED 08:05:00 AM [facility] X58.XXXA Exposure to other EXPOSURE TO OTHER Diagnosis 03/18/2020 [facility] specified SPECIFIED 08:05:00 AM EDT Medical C enter factors, initial FACTORS, INITIAL encounter ENCOUNTER S40.012A Contusion of left CONTUSION OF LEFT Diagnosis 03/18/2020 [facility] shoulder, initial SHOULDER, INITIAL 08:05:00 AM [facility] encounter ENCOUNTER S46.912A Strain of STRAIN UNSP Diagnosis 03/18/2020 [facility] unspecified MUSC/FASC/TEND AT 08:05:00 AM EDT M [facility]ical Center muscle, fascia SHLDR/UP ARM, and tendon at LEFT ARM, INIT shoulder and upper arm level, left arm, initial encounter Results ID Date Data Source [id number] 03/16/2020 12:00:00 AM EDT [facility] Name Value Range Interpretation Description Data Sup porting Code Source(s) Document(s ) SARS [facility] coronavirus 2 RNA This lab was ordered by Health system and reported by [facility]. ID Date Data Source [id number] 12/21/2019 01:00:00 PM EDT [facility] Name Value Range Interpretation Description Data Sup porting Code Source(s) Document(s ) SARS [facility] CORONAVIRUS 2 RNA This lab was ordered by [facility] ct Bill Inter and reported by [facility]. Procedure Vital Signs ID Date Data Source UNK Name Value Range Interpretation Code Description Data Source(s) Body weight 5.664094 kg 5.198482 kg [facility] Measured [facility] Body temperature 36.328889 36.443661 [facility] Respiratory rate 20 /min 20 /min [facility] Oxygen saturation 99 % 99 % [facility] Wolf deutsch in Arterial blood [facility] by Pulse oximetry Heart rate 80 /min 80 /min [facility] Body height 170.495607 170.190260 cm [facility] Diastolic blood 82 mm[Hg] 82 mm[Hg] [facility] pressure Medical Center Systolic blood 107 mm[Hg] 107 mm[Hg] [facility] pressure [facility] Body mass index 1.7 kg/m2 1.7 kg/m2 [facility] (BMI) [Ratio] Medical Alirio ter
--- NOTE | 2020-05-21 11:42 | BHS.RME ---
2019 N Coronavirus Screen - COVID-19 Screening Questions Dx of COVID-19 or had a positive test in the last 4 weeks?: No Contact with known/suspected COVID patient in last 14 days?: No Any of these symptoms or contact with someone who has?: None Traveled domestically/internationally in the last 14 days?: No Screen score: 0 Screen result: Further Evaluation Substance Use & Tx History - Substance Use History Alcohol Substance amount: 4-5 six packs beers Frequency of use: Daily Substance route: Oral Date of Last Use: 05/21/20 (started age 14) Cocaine-Crack Substance amount: $100-200 Frequency of use: Daily Substance route: Smoking Date of Last Use: 05/21/20 (started age 21) Marijuana/Hashish Substance amount: 45 Frequency of use: Less than 3 times per week Substance route: Smoking Date of Last Use: 05/21/20 (STARTED AGE 16) Nicotine Substance amount: 1/2 PACK Frequency of use: Daily Substance route: Smoking Date of Last Use: 05/21/20 (STARTED AGE 11) - Last Treatment Date of last treatment: 03/16-03/28/20 Treatment type: Substance Use Disorder (CESAR) Where was last treatment: Detox (COMPLETED DETOX AND REHAB AND UPON DISCHARGED IMMEDIATELY RELAPSED) Physical/Psych/Mental Status - Behavior General Behavior: Increased activity (restlessness, agitation) Eye Contact: Normal - Cooperativeness Cooperativeness: Cooperative - Thinking Thought Processes: Tight, Logical, Goal Directed Thought content: Future oriented - Physical Health Problems Is patient presently having any pain?: No Does patient presently have any injuries (include location): No Does patient currently have a fever: No Is patient : No CIWA Nausea/Vomitin-No Nausea/No Vomiting Muscle Tremors: 1-None Visible, but [place] Anxiety: 4-Mod. Anxious/Guarded Agitation: 2 Paroxysmal Sweats: 1-Minimal Palms Moist Orientation: 1-Uncertain about Date Tacttile Disturbances: 1-Very Mild Itch/Numbness Auditory Disturbances: 0-None Visual Disturbances: 0-None Headache: 0-None Present CIWA-Ar Total Score: 10
[2020-05-21 12:09] VITALS: BMI 19.3
--- NOTE | 2020-05-21 12:26 | HP ---
CIWA Score Nausea/Vomitin-No Nausea/No Vomiting Muscle Tremors: 1-None Visible, but [place] Anxiety: 4-Mod. Anxious/Guarded Agitation: 2 Paroxysmal Sweats: 1-Minimal Palms Moist Orientation: 1-Uncertain about Date Tacttile Disturbances: 1-Very Mild Itch/Numbness Auditory Disturbances: 0-None Visual Disturbances: 0-None Headache: 0-None Present CIWA-Ar Total Score: 10 - Admission Criteria OASAS Guidelines: Admission for Medically Managed Detox: Requires at least one of the followin. CIWA greater than 12 2. Seizures within the past 24 hours 3. Delirium tremens within the past 24 hours 4. Hallucinations within the past 24 hours 5. Acute intervention needed for co occurring medical disorder 6. Acute intervention needed for co occurring psychiatric disorder 7. Severe withdrawal that cannot be handled at a lower level of care (continued vomiting, continued diarrhea, abnormal vital signs) requiring intravenous medication and/or fluids 8. Admitting History and Physical - Admission Chief Complaint: Mr. Tsang is a 54 yo man who present to [facility] requesting admission to detox. He states he is here because he "relapsed". History of Present Illness: Mr. Tsang is a 54 yo man who present to [facility] requesting admission to detox. He states he is here because he "relapsed". He was last here for detox and rehab between 03/16 to 03/28/20. He had post discharge plans to go to [email or web address]. However, he states his SRO is "infested with drugs". PMH: HIV, undetectabel viral load, HTN PSH: right occipital sutures as a teenager, fractured nose Psych: insomnia, ADHD SOC: [facility], [place] Legal: none - Substance Use History Alcohol Substance amount: 4-5 six packs beers Frequency of use: Daily Substance route: Oral Date of Last Use: 05/21/20 (started age 14) No hx of seizures Blackouts: last was 6 mos ago Admits to eyeopener Cocaine-Crack Substance amount: $100-200 Frequency of use: Daily Substance route: Smoking Date of Last Use: 05/21/20 (started age 21) Marijuana/Hashish Substance amount: 45 Frequency of use: Less than 3 times per week Substance route: Smoking Date of Last Use: 05/21/20 (STARTED AGE 16) Nicotine Substance amount: 1/2 PACK Frequency of use: Daily Substance route: Smoking Date of Last Use: 05/21/20 (STARTED AGE 11) Meets admission criteria: currently intoxicated which obscures full extent of withdrawal, poor recovery environment with high risk of relapse History Source: Patient Limitations to Obtaining History: No Limitations - Smoking History Smoking history: Current every day smoker Have you smoked in the past 12 months: Yes Aproximately how many cigarettes per day: 10 - Alcohol/Substance Use Hx Alcohol Use: Yes Admission ROS [facility] - HPI Allergies/Adverse Reactions: Allergies Allergy/AdvReac Type Severity Reaction Status Date / Time No Known Allergies Allergy Verified 03/16/20 21:53 Exam Limitations: No Limitations - Ebola screening Have you traveled outside of the country in the last 21 days: No Have you been sick,other than usual withdrawal symptoms: No Do you have a fever: No - Review of Systems Constitutional: Unintentional Wgt. Loss (lost about 15 lbs since March) EENT: reports: Other (right ear feels closed) Respiratory: reports: No Symptoms reported Cardiac: reports: No Symptoms Reported GI: reports: No Symptoms Reported : reports: No Symptoms Reported Musculoskeletal: reports: Other (right leg pain "neuropathy", chronic x 2-3 years) Integumentary: reports: No Symptoms Reported Neuro: reports: No Symptoms reported Endocrine: reports: No Symptoms Reported Hematology: reports: No Symptoms Reported Psychiatric: reports: Anxious, other (insomnia No SI) Patient History - Patient Medical History Hx Anemia: Yes (Not on medication) Hx Asthma: No Hx Chronic Obstructive Pulmonary Disease (COPD): No Hx Cancer: No Hx Cardiac Disorders: No Hx Congestive Heart Failure: No Hx Hypertension: No Hx Hypercholesterolemia: No Hx Pacemaker: No HX Cerebrovascular Accident: No Hx Seizures: No Hx Dementia: No Hx Diabetes: No Hx Gastrointestinal Disorders: No Hx Genitourinary Disorders: No Hx Sexually Transmitted Disorders: No Hx Renal Disease (ESRD): No Hx Thyroid Disease: No Hx Human Immunodeficiency Virus (HIV): Yes (since 1990) Hx Hepatitis C: No Hx Depression: No Hx Suicide Attempt: No Hx Bipolar Disorder: No Hx Schizophrenia: No - Patient Surgical History Past Surgical History: Yes Hx Neurologic Surgery: No Hx Cataract Extraction: No Hx Cardiac Surgery: No Hx Lung Surgery: No Hx Breast Surgery: No Hx Breast Biopsy: No Hx Abdominal Surgery: No Hx Appendectomy: No Hx Cholecystectomy: No Hx Genitourinary Surgery: No Hx Section: No Hx Orthopedic Surgery: No Other Surgical History: Nose reconstruction 1988 Anesthesia Reaction: No - PPD History Previous Implant?: Yes Documented Results: Positive w/proof Implanted On Prior [facility] Admission?: No Results: CXR neg 12/19 - Smoking Cessation Smoking history: Current every day smoker Have you smoked in the past 12 months: Yes Aproximately how many cigarettes per day: 10 Cigars Per Day: 0 Hx Chewing Tobacco Use: No Initiated information on smoking cessation: Yes 'Breaking Loose' booklet given: 05/21/20 Admission Physical Exam [facility] - Vital Signs Vital Signs: Vital Signs - 24 hr 05/21/20 12:05 Temperature 98.2 F Pulse Rate 97 H Respiratory 18 Rate Blood Pressure 107/72 - Physical General Appearance: Yes: No Apparent Distress, Appropriately Dressed, Thin HEENTM: Yes: EOMI, Hearing grossly Normal, Normocephalic, Normal Voice Respiratory: Yes: Lungs Clear, No Respiratory Distress, No Accessory Muscle Use Neck: Yes: Within Normal Limits, Supple Breast: Yes: Breast Exam Deferred Cardiology: Yes: Regular Rhythm, Regular Rate Abdominal: Yes: Normal Bowel Sounds, Non Tender, Flat, Soft Genitourinary: Yes: Other (deferred) Back: Yes: Normal Inspection Musculoskeletal: Yes: Gait Steady Extremities: Yes: Normal Inspection, Non-Tender Neurological: Yes: Alert, Normal Response Integumentary: Yes: Normal Color, Dry, Warm - Diagnostic (1) Cannabis dependence Current Visit: Yes Status: Acute (2) Alcohol dependence with uncomplicated withdrawal Current Visit: Yes Status: Acute (3) Cocaine dependence Current Visit: Yes Status: Chronic Qualifiers: Substance use status: uncomplicated Qualified Code(s): F14.20 - Cocaine dependence, uncomplicated (4) HIV (human immunodeficiency virus infection) Current Visit: Yes Status: Chronic Qualifiers: HIV symptom status: unspecified Qualified Code(s): B20 - Human immunod eficiency virus [HIV] disease (5) Nicotine dependence Current Visit: Yes Status: Acute Qualifiers: Nicotine product type: cigarettes Substance use status: uncomplicated Qualified Code(s): F17.210 - Nicotine dependence, cigarettes, uncomplicated (6) Weight loss Current Visit: Yes Status: Acute (7) Syphilis contact, treated Current Visit: No Status: Resolved Cleared for Admission [facility] - Detox or Rehab [facility] Level of Care: Medically Managed Detox Regimen/Protocol: Librium Breathalyzer - Breathalyzer Breathalyzer: 0.031 Urine Drug Screen - Test Device Lot number: [id number] Expiration date: 11/07/21 - Control Is test valid?: Yes - Results Drug screen NEGATIVE: No Urine drug screen results: THC-Marijuana, IMAN-Cocaine Inpatient Rehab Admission - Rehab Decision to Admit Inpatient rehab admission?: No
--- OUTSIDE RECORDS SUMMARY | 2020-05-21 12:27 | XMS ---
[...] is protected by Article 27-F of the [facility] Public Health law. If you continue you may haveaccess to information: Regarding HIV / AIDS; Provided by facilities licensed or operated by the [facility] Office of Mental Health; or Provided by the [facility] Office for People With Developmental Disabilities. If such information is present, then the following [facility] mandated warning applies: This information has been [...] law may result in a fine or fci sentence or both. A general authorization for the release of medical or other information is NOT sufficient authorization for further disclosure. Encounters Encounter Providers Location Date Indications Data Source(s ) Emergency Attender: ED STAFF H 03/18/2020 [facility] PHYSICIANAttender: 08:05:00 AM [facility] STAFF ED STAFF EDT - PHYSICIANAdmitter: ED 03/18/2020 STAFF 02:28:00 PM PHYSICIANReferrer: EDT ZUNASSIGNED Patient discharged. Insurance Providers Payer name Policy type Policy ID Covered Covered democrat's Policy P daysi / Coverage democrat ID relationship to Fofana Inf ormation type fofana BH-BEACON [id number] SP [id number] 1 AM[employer]ACARE -BEACON [id number] SP [id number] AMIDACARE AMIDACARE W [id number] 01 [id number] 01 [id number] -BEACON [id number] SP [id number] AMIDACARE -BEACON [id number] SP [id number] AM[employer]ACARE Problems, Conditions, and Diagnoses Code Display Name Description Problem Type Effective Dates Data Source(s) Y99.9 Unspecified UNSPECIFIED Diagnosis 03/18/2020 [place] s external cause EXTERNAL CAUSE 08:05:00 AM EDT [facility] status STATUS Y92.[address] Diagnosis 03/18/2020 [facility] or not applicable OR NOT APPLICABLE 08:05:00 AM [facility] Y93.9 Activity, ACTIVITY, Diagnosis 03/18/2020 [facility] unspecified UNSPECIFIED 08:05:00 AM [facility] X58.XXXA Exposure to other EXPOSURE TO OTHER Diagnosis 03/18/2020 [facility] specified SPECIFIED 08:05:00 AM EDT Medical C enter factors, initial FACTORS, INITIAL encounter ENCOUNTER S40.012A Contusion of left CONTUSION OF LEFT Diagnosis 03/18/2020 [facility] shoulder, initial SHOULDER, INITIAL 08:05:00 AM [facility] encounter ENCOUNTER S46.912A Strain of STRAIN UNSP Diagnosis 03/18/2020 [facility] unspecified MUSC/FASC/TEND AT 08:05:00 AM EDT M edical Center muscle, fascia SHLDR/UP ARM, and tendon at LEFT ARM, INIT shoulder and upper arm level, left arm, initial encounter Results ID Date Data Source [id number] 03/16/2020 12:00:00 AM EDT [facility] Name Value Range Interpretation Description Data Sup porting Code Source(s) Document(s ) SARS [facility] coronavirus 2 RNA This lab was ordered by [facility] and reported by [facility]. ID Date Data Source [id number] 12/21/2019 01:00:00 PM EDT [facility] Name Value Range Interpretation Description Data Sup porting Code Source(s) Document(s ) SARS [facility] CORONAVIRUS 2 RNA This lab was ordered by [facility] ct Bill Inter and reported by [facility]. Procedure Vital Signs ID Date Data Source UNK Name Value Range Interpretation Code Description Data Source(s) Body weight 5.422072 kg 5.947459 kg [facility] Measured [facility] Body temperature 36.466867 36.863331 [facility] Respiratory rate 20 /min 20 /min [facility] Oxygen saturation 99 % 99 % [facility] Wolf deutsch in Arterial blood [facility] by Pulse oximetry Heart rate 80 /min 80 /min [facility] Body height 170.410975 170.997196 cm [facility] Diastolic blood 82 mm[Hg] 82 mm[Hg] [facility] pressure Medical Center Systolic blood 107 mm[Hg] 107 mm[Hg] [facility] pressure [facility] Body mass index 1.7 kg/m2 1.7 kg/m2 [facility] (BMI) [Ratio] Medical Alirio ter
[2020-05-21] MEDS ORDERED: MAG HYDROX/AL HYDROX/SIMETH 30 ML UNIT-DOSE CUP PO PRN (12:39)
[2020-05-21] MEDS ORDERED: MENTHOL/PHENOL 1 EACH UD MM PRN (12:39)
[2020-05-21] MEDS ORDERED: NICOTINE POLACRILEX 2 MG GUM BUC PRN (12:39)
[2020-05-21] MEDS ORDERED: BISMUTH SUBSALICYLATE 524 MG/30 ML UD PO PRN (12:39)
[2020-05-21] MEDS ORDERED: ACETAMINOPHEN 325 MG TABLET (FP) PO PRN ×2 (12:39)
[2020-05-21] MEDS ORDERED: MAGNESIUM CITRATE 300 ML BOTTLE PO PRN (12:39)
[2020-05-21] MEDS ORDERED: IBUPROFEN 400 MG TABLET (FP) PO PRN (12:39)
[2020-05-21] MEDS ORDERED: MAGNESIUM HYDROX 2400MG/30ML ORAL SUSPENSION 30 ML CUP PO PRN (12:39)
[2020-05-21] MEDS ORDERED: ONDANSETRON *ODT* 4 MG TABLET SL PRN (12:39)
[2020-05-21] MEDS ORDERED: METHOCARBAMOL 500 MG TABLET PO PRN (12:39)
[2020-05-21] MEDS ORDERED: chlordiazePOXIDE HCL 25 MG CAPSULE PO PRN (12:39)
[2020-05-21] MEDS: FLUCONAZOLE 100 MG TABLET (UD) PO SCH (14:45)
[2020-05-21] MEDS: ABACAVIR/DOLUTEGRAVIR/LAMIVUDI (TRIUMEQ) TABLET -NF PO SCH (14:46)
[2020-05-21] MEDS: hydrOXYzine PAMOATE 25 MG CAPSULE (FP) PO SCH ×4 (14:49→22:18)
[2020-05-21] MEDS: NICOTINE 14 MG/24 HOURS TOPICAL PATCH TD SCH (14:49)
[2020-05-21 17:02] LABS: POTASSIUM 3.8 mmol/L (3.5-5.1)
[2020-05-21 17:07] LABS: ALBUMIN 3.4 g/dl (3.4-5.0); BLOOD UREA NITROGEN 9.2 mg/dL (7-18); CALCIUM 8.6 mg/dL (8.5-10.1)
[2020-05-21 17:11] LABS: HEMATOCRIT 38.8 % (35.4-49); HEMOGLOBIN 12.7 GM/dL (11.7-16.9); MCH 32.1 pg (25.7-33.7); MCHC 32.8 g/dl (32.0-35.9); MEAN CELL VOLUME 97.7 fl (80-96); MEAN PLT VOLUME 8.6 fl (7.5-11.1); PLATELET COUNT 146 K/MM3 (134-434); RBC 3.97 M/mm3 (4.00-5.60); RDW 14.2 % (11.9-15.9); WHITE BLOOD COUNT 3.1 K/mm3 (4.0-10.0)
[2020-05-21 17:12] LABS: BILIRUBIN,TOTAL 0.7 mg/dL (0.2-1); TOT PROT 9.5 g/dl (6.4-8.2)
[2020-05-21] MEDS: chlordiazePOXIDE HCL 25 MG CAPSULE PO SCH ×2 (17:33→22:18)
[2020-05-21] MEDS: THIAMINE HCL 100 MG TABLET (FP) PO SCH (22:17)
[2020-05-21] MEDS: MELATONIN 5 MG TABLETS PO SCH (22:17)
[2020-05-22] MEDS: hydrOXYzine PAMOATE 25 MG CAPSULE (FP) PO SCH ×5 (06:25→22:16)
[2020-05-22] MEDS: chlordiazePOXIDE HCL 25 MG CAPSULE PO SCH ×4 (06:25→22:16)
[2020-05-22] MEDS: ABACAVIR/DOLUTEGRAVIR/LAMIVUDI (TRIUMEQ) TABLET -NF PO SCH (07:22)
--- NOTE | 2020-05-22 09:31 | PN ---
S CIWA - CIWA Score Nausea/Vomitin Muscle Tremors: 3 Anxiety: 3 Agitation: 2 Paroxysmal Sweats: No Perspiration Orientation: 0-Oriented Tacttile Disturbances: 1-Very Mild Itch/Numbness Auditory Disturbances: 0-None Visual Disturbances: 0-None Headache: 2-Mild CIWA-Ar Total Score: 13 S Progress Note (SOAP) Subjective: alert,irritable,anxious,interrupted sleep,aching pain Objective: 05/22/20 11:46 Vital Signs Temperature 97.8 F 05/22/20 08:34 Pulse Rate 83 05/22/20 08:34 Respiratory Rate 16 05/22/20 08:34 Blood Pressure 95/66 05/22/20 08:34 O2 Sat by Pulse Oximetry (%) 95 05/22/20 08:34 05/22/20 11:46 Laboratory Last Values WBC 3.1 K/mm3 (4.0-10.0) L 05/21/20 12:44 RBC 3.97 M/mm3 (4.00-5.60) L 05/21/20 12:44 Hgb 12.7 GM/dL (11.7-16.9) 05/21/20 12:44 Hct 38.8 % (35.4-49) 05/21/20 12:44 MCV 97.7 fl (80-96) H 05/21/20 12:44 MCH 32.1 pg (25.7-33.7) 05/21/20 12:44 MCHC 32.8 g/dl (32.0-35.9) 05/21/20 12:44 RDW 14.2 % (11.9-15.9) 05/21/20 12:44 Plt Count 146 K/MM3 (134-434) D 05/21/20 12:44 MPV 8.6 fl (7.5-11.1) 05/21/20 12:44 Sodium 136 mmol/L (136-145) 05/21/20 12:44 Potassium 3.8 mmol/L (3.5-5.1) 05/21/20 12:44 Chloride 102 mmol/L (98-107) 05/21/20 12:44 Carbon Dioxide 25 mmol/L (21-32) 05/21/20 12:44 Anion Gap 8 MMOL/L (8-16) 05/21/20 12:44 BUN 9.2 mg/dL (7-18) 05/21/20 12:44 Creatinine 1.0 mg/dL (0.55-1.3) 05/21/20 12:44 Est GFR (CKD-EPI)AfAm 98.46 05/21/20 12:44 Est GFR (CKD-EPI)NonAf 84.95 05/21/20 12:44 Random Glucose 73 mg/dL (74-106) L 05/21/20 12:44 Calcium 8.6 mg/dL (8.5-10.1) 05/21/20 12:44 Total Bilirubin 0.7 mg/dL (0.2-1) 05/21/20 12:44 AST 112 U/L (15-37) H 05/21/20 12:44 ALT 58 U/L (13-61) 05/21/20 12:44 Alkaline Phosphatase 108 U/L (45-117) 05/21/20 12:44 Total Protein 9.5 g/dl (6.4-8.2) H 05/21/20 12:44 Albumin 3.4 g/dl (3.4-5.0) 05/21/20 12:44 Syphilis Serology Reactive (NONREACTIVE) A* 05/21/20 12:44 RPR Titer Reactive 1:1 (NONREACTIVE) H 05/21/20 12:44 05/22/20 11:50 treated for syphilis before Assessment: 05/22/20 11:47 withdrawal symptom Plan: continue detox librium regimen
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
[2020-05-22] MEDS: PRENATAL VITAMINS W/ FOLIC ACID TABLET (FP) PO SCH (10:20)
[2020-05-22] MEDS: FLUCONAZOLE 100 MG TABLET (UD) PO SCH (10:20)
[2020-05-22] MEDS: SULFAMETHOXAZOLE/TRIMETHOPRIM 800MG/160MG D.S. TABLET PO SCH (10:20)
[2020-05-22] MEDS: NICOTINE 14 MG/24 HOURS TOPICAL PATCH TD SCH (10:23)
[2020-05-22] MEDS ORDERED: SUVOREXANT 10 MG TABLET PO PRN (22:00)
[2020-05-22] MEDS: THIAMINE HCL 100 MG TABLET (FP) PO SCH (22:16)
[2020-05-22] MEDS: MELATONIN 5 MG TABLETS PO SCH (22:16)
[2020-05-23] MEDS: chlordiazePOXIDE HCL 25 MG CAPSULE PO SCH ×2 (05:26→10:14)
[2020-05-23] MEDS: hydrOXYzine PAMOATE 25 MG CAPSULE (FP) PO SCH ×2 (05:26→10:14)
[2020-05-23 06:13] VITALS: BP 107/70
[2020-05-23] MEDS: ABACAVIR/DOLUTEGRAVIR/LAMIVUDI (TRIUMEQ) TABLET -NF PO SCH (08:13)
[2020-05-23 09:09] VITALS: PULSE 78; TEMP 98.4
[2020-05-23] MEDS: FLUCONAZOLE 100 MG TABLET (UD) PO SCH (10:13)
[2020-05-23] MEDS: PRENATAL VITAMINS W/ FOLIC ACID TABLET (FP) PO SCH (10:13)
[2020-05-23] MEDS: SULFAMETHOXAZOLE/TRIMETHOPRIM 800MG/160MG D.S. TABLET PO SCH (10:13)
[2020-05-23] MEDS: NICOTINE 14 MG/24 HOURS TOPICAL PATCH TD SCH (10:17)
--- NOTE | 2020-05-23 11:27 | PN ---
[facility] CIWA - CIWA Score Nausea/Vomitin-No Nausea/No Vomiting Muscle Tremors: None Anxiety: 1-Mildly Anxious Agitation: 0-Normal Activity Paroxysmal Sweats: No Perspiration Orientation: 0-Oriented Tacttile Disturbances: 0-None Auditory Disturbances: 0-None Visual Disturbances: 0-None Headache: 0-None Present CIWA-Ar Total Score: 1 S Progress Note (SOAP) Subjective: alert,no complaint Objective: 05/23/20 11:22 Vital Signs Temperature 98.4 F 05/23/20 08:42 Pulse Rate 78 05/23/20 08:42 Respiratory Rate 18 05/23/20 08:42 Blood Pressure 107/70 05/23/20 08:42 O2 Sat by Pulse Oximetry (%) 100 05/23/20 06:12 Assessment: 05/23/20 11:23 no withdrawal symptom Plan: stable for discharge today,denied rehab,follow up with after care program and his medical provider
--- NOTE | 2020-05-23 11:31 | DS ---
[facility] Detox Discharge Summary Admission Date: 05/21/20 Discharge Date: 05/23/20 - History Present History: Alcohol Dependence, Cannabis Dependence, Cocaine Dependence Additional Comments: alert,oriented s 3 ambulation on the unit lung clear on auscultation bilaterally no abdominal pain,no tenderness no edema of legs stable for discharge today no withdrawal symptom patient declined rehab will follow up with his own medical provider for medical issue and [facility] if he change his mind to go to rehab total time spending on discharge 30 minutes left the unit in stable condition has medications at home Pertinent Past History: hiv history of syphilis treated nicotine dependence insomnia - Physical Exam Results Vital Signs: Vital Signs Temperature 98.4 F 05/23/20 08:42 Pulse Rate 78 05/23/20 08:42 Respiratory Rate 18 05/23/20 08:42 Blood Pressure 107/70 05/23/20 08:42 O2 Sat by Pulse Oximetry (%) 100 05/23/20 06:12 Pertinent Admission Physical Exam Findings: withdrawal signs and symptom Laboratory Last Values WBC 3.1 K/mm3 (4.0-10.0) L 05/21/20 12:44 RBC 3.97 M/mm3 (4.00-5.60) L 05/21/20 12:44 Hgb 12.7 GM/dL (11.7-16.9) 05/21/20 12:44 Hct 38.8 % (35.4-49) 05/21/20 12:44 MCV 97.7 fl (80-96) H 05/21/20 12:44 MCH 32.1 pg (25.7-33.7) 05/21/20 12:44 MCHC 32.8 g/dl (32.0-35.9) 05/21/20 12:44 RDW 14.2 % (11.9-15.9) 05/21/20 12:44 Plt Count 146 K/MM3 (134-434) D 05/21/20 12:44 MPV 8.6 fl (7.5-11.1) 05/21/20 12:44 Sodium 136 mmol/L (136-145) 05/21/20 12:44 Potassium 3.8 mmol/L (3.5-5.1) 05/21/20 12:44 Chloride 102 mmol/L (98-107) 05/21/20 12:44 Carbon Dioxide 25 mmol/L (21-32) 05/21/20 12:44 Anion Gap 8 MMOL/L (8-16) 05/21/20 12:44 BUN 9.2 mg/dL (7-18) 05/21/20 12:44 Creatinine 1.0 mg/dL (0.55-1.3) 05/21/20 12:44 Est GFR (CKD-EPI)AfAm 98.46 05/21/20 12:44 Est GFR (CKD-EPI)NonAf 84.95 05/21/20 12:44 Random Glucose 73 mg/dL (74-106) L 05/21/20 12:44 Calcium 8.6 mg/dL (8.5-10.1) 05/21/20 12:44 Total Bilirubin 0.7 mg/dL (0.2-1) 05/21/20 12:44 AST 112 U/L (15-37) H 05/21/20 12:44 ALT 58 U/L (13-61) 05/21/20 12:44 Alkaline Phosphatase 108 U/L (45-117) 05/21/20 12:44 Total Protein 9.5 g/dl (6.4-8.2) H 05/21/20 12:44 Albumin 3.4 g/dl (3.4-5.0) 05/21/20 12:44 Syphilis Serology Reactive (NONREACTIVE) A* 05/21/20 12:44 RPR Titer Reactive 1:1 (NONREACTIVE) H 05/21/20 12:44 COVID-19 (MARYANN) Not detected (Not Detected) 05/21/20 12:30 history of syphilis treated - Treatment Hospital Course: Detox Protocol Followed, Detoxed Safely, Responded well, Discharged Condition Good Patient has Accepted a Rehab Referral to: declined - Medication Discharge Medications: Ambulatory Orders Multivitamins [Multivit ([facility] Formulary)] 1 tab PO DAILY 12/21/19 Abacavir/Dolutegravir/Lamivudi [Triumeq 600-50-300 mg Tablet] 1 each PO DAILY 30 Days #30 tab-cap 03/27/20 Fluconazole [Diflucan -] 100 mg PO DAILY 5 Days #5 tablet 03/27/20 Sulfamethoxazole/Trimethoprim [Bactrim DS -] 1 tab PO DAILY 14 Days #14 tab-cap 03/27/20 Quetiapine Fumarate [Seroquel -] 50 mg PO DAILY 05/21/20 - Diagnosis (1) Alcohol dependence with uncomplicated withdrawal Current Visit: Yes Status: Acute (2) Cannabis dependence Current Visit: Yes Status: Chronic (3) Cocaine dependence Current Visit: Yes Status: Chronic Qualifiers: Substance use status: uncomplicated Qualified Code(s): F14.20 - Cocaine dependence, uncomplicated (4) HIV (human immunodeficiency virus infection) Current Visit: Yes Status: Chronic Qualifiers: HIV symptom status: unspecified Qualified Code(s): B20 - Human immunodeficiency virus [HIV] disease (5) Insomnia Current Visit: Yes Status: Chronic (6) Nicotine dependence Current Visit: Yes Status: Chronic Qualifiers: Nicotine product type: cigarettes Substance use status: uncomplicated Qualified Code(s): F17.210 - Nicotine dependence, cigarettes, uncomplicated (7) History of syphilis Current Visit: Yes Status: Acute - AMA Did Patient Leave Against Medical Advice: No
[2020-05-24] MEDS ORDERED: chlordiazePOXIDE HCL 10 MG CAPSULE PO PRN
[2020-05-24] MEDS ORDERED: chlordiazePOXIDE HCL 10 MG CAPSULE PO SCH (05:00)
[2020-05-25] MEDS ORDERED: chlordiazePOXIDE HCL 10 MG CAPSULE PO SCH (05:00)
[2020-05-26] MEDS ORDERED: chlordiazePOXIDE HCL 10 MG CAPSULE PO ONE (05:00)
== END 2020-05-23 10:58 | disposition home or self-care (01) | DRG 774 ==
LOC: YASAS 11:02 → Y3N 12:21
PROVIDERS: ADMIT Allergy & Immunology; ATTEND Allergy & Immunology
PROC: HZ2ZZZZ Detoxification Services for Substance Abuse Treatment (ICD-10-PCS; principal; 2020-05-21)
DX: F10.230 Alcohol dependence with withdrawal, uncomplicated (principal); F14.20 Cocaine dependence, uncomplicated; F12.20 Cannabis dependence, uncomplicated; F17.210 Nicotine dependence, cigarettes, uncomplicated; F64.0 Transsexualism; Z21 Asymptomatic human immunodeficiency virus [HIV] infection status; G62.9 Polyneuropathy, unspecified; R63.4 Abnormal weight loss; Z68.1 Body mass index [BMI] 19.9 or less, adult; Z62.810 Personal history of physical and sexual abuse in childhood; Z56.0 Unemployment, unspecified
CPT/HCPCS: 36415; 80053; 85027; 86593; 86780; C9803; U0003

== ENCOUNTER 2021-01-28 12:59 | Inpatient (IN) | payer OTHER ==
[2021-01-28] MEDS ORDERED: NICOTINE POLACRILEX 2 MG GUM BUC PRN (15:00)
[2021-01-28] MEDS ORDERED: ACETAMINOPHEN 325 MG TABLET (FP) PO PRN ×2 (15:00)
[2021-01-28] MEDS ORDERED: IBUPROFEN 400 MG TABLET (FP) PO PRN (15:00)
[2021-01-28] MEDS ORDERED: MAGNESIUM HYDROX 2400MG/30ML ORAL SUSPENSION 30 ML CUP PO PRN (15:00)
[2021-01-28] MEDS ORDERED: MAG HYDROX/AL HYDROX/SIMETH 30 ML UNIT-DOSE CUP PO PRN (15:00)
[2021-01-28] MEDS ORDERED: METHOCARBAMOL 500 MG TABLET PO PRN (15:00)
[2021-01-28] MEDS ORDERED: MAGNESIUM CITRATE 300 ML BOTTLE PO PRN (15:00)
[2021-01-28] MEDS ORDERED: ONDANSETRON *ODT* 4 MG TABLET SL PRN (15:00)
[2021-01-28] MEDS ORDERED: LORazepam 1 MG TABLET PO PRN (15:00)
[2021-01-28] MEDS ORDERED: MENTHOL/PHENOL 1 EACH UD MM PRN (15:00)
[2021-01-28] MEDS ORDERED: BISMUTH SUBSALICYLATE 262 MG/15 ML BTL PO PRN (15:00)
[2021-01-28 15:02] VITALS: BMI 18.7
[2021-01-28] MEDS: PRENATAL VITAMINS W/ FOLIC ACID TABLET (FP) PO SCH (17:32)
[2021-01-28] MEDS: hydrOXYzine PAMOATE 25 MG CAPSULE (FP) PO SCH ×2 (17:33→22:18)
[2021-01-28] MEDS: NICOTINE 21 MG/24 HOURS TOPICAL PATCH TD SCH (17:33)
[2021-01-28] MEDS: LORazepam 2 MG TABLET PO SCH ×2 (17:33→22:18)
[2021-01-28] MEDS: THIAMINE HCL 100 MG TABLET (FP) PO SCH (22:18)
[2021-01-28] MEDS: MELATONIN 5 MG TABLETS PO SCH (22:18)
[2021-01-29] MEDS: hydrOXYzine PAMOATE 25 MG CAPSULE (FP) PO SCH ×5 (06:54→22:36)
[2021-01-29] MEDS: LORazepam 2 MG TABLET PO SCH ×4 (06:54→22:36)
[2021-01-29] MEDS: FLUCONAZOLE 100 MG TABLET (UD) PO SCH (10:21)
[2021-01-29] MEDS: ABACAVIR/DOLUTEGRAVIR/LAMIVUDI (TRIUMEQ) TABLET -NF PO SCH (10:21)
[2021-01-29] MEDS: PRENATAL VITAMINS W/ FOLIC ACID TABLET (FP) PO SCH (10:21)
[2021-01-29] MEDS: NICOTINE 21 MG/24 HOURS TOPICAL PATCH TD SCH (10:22)
[2021-01-29] MEDS: SULFAMETHOXAZOLE/TRIMETHOPRIM 800MG/160MG D.S. TABLET PO SCH (10:23)
[2021-01-29 10:46] LABS: CALCIUM 8.4 mg/dL (8.5-10.1)
[2021-01-29 10:47] LABS: ALBUMIN 2.9 g/dl (3.4-5.0); BLOOD UREA NITROGEN 10.2 mg/dL (7-18)
[2021-01-29 10:48] LABS: HEMATOCRIT 37.4 % (35.4-49); HEMOGLOBIN 12.6 GM/dL (11.7-16.9); MCH 32.3 pg (25.7-33.7); MCHC 33.6 g/dl (32.0-35.9); MEAN CELL VOLUME 96.2 fl (80-96); MEAN PLT VOLUME 7.7 fl (7.5-11.1); PLATELET COUNT 122 10^3/uL (134-434); RBC 3.89 M/mm3 (4.00-5.60); RDW 13.2 % (11.9-15.9); WHITE BLOOD COUNT 2.5 K/mm3 (4.0-10.0)
[2021-01-29 10:50] LABS: CREATININE 0.8 mg/dL (0.55-1.3)
[2021-01-29 10:52] LABS: BILIRUBIN,TOTAL 0.6 mg/dL (0.2-1); TOT PROT 8.9 g/dl (6.4-8.2)
[2021-01-29] MEDS: QUEtiapine FUMARATE 50 MG TABLET PO SCH (22:36)
[2021-01-29] MEDS: THIAMINE HCL 100 MG TABLET (FP) PO SCH (22:36)
[2021-01-29] MEDS: MELATONIN 5 MG TABLETS PO SCH (22:36)
[2021-01-30] MEDS: hydrOXYzine PAMOATE 25 MG CAPSULE (FP) PO SCH ×5 (05:55→22:26)
[2021-01-30] MEDS: LORazepam 1 MG TABLET PO SCH ×4 (05:56→22:27)
[2021-01-30] MEDS: NICOTINE 21 MG/24 HOURS TOPICAL PATCH TD SCH (10:44)
[2021-01-30] MEDS: PRENATAL VITAMINS W/ FOLIC ACID TABLET (FP) PO SCH (10:44)
[2021-01-30] MEDS: SULFAMETHOXAZOLE/TRIMETHOPRIM 800MG/160MG D.S. TABLET PO SCH (10:44)
[2021-01-30] MEDS: FLUCONAZOLE 100 MG TABLET (UD) PO SCH (10:44)
[2021-01-30] MEDS: ABACAVIR/DOLUTEGRAVIR/LAMIVUDI (TRIUMEQ) TABLET -NF PO SCH (10:45)
[2021-01-30] MEDS: MELATONIN 5 MG TABLETS PO SCH (22:26)
[2021-01-30] MEDS: THIAMINE HCL 100 MG TABLET (FP) PO SCH (22:26)
[2021-01-30] MEDS: QUEtiapine FUMARATE 50 MG TABLET PO SCH (22:26)
[2021-01-31] MEDS ORDERED: LORazepam 0.5 MG TABLET PO PRN
[2021-01-31] MEDS: hydrOXYzine PAMOATE 25 MG CAPSULE (FP) PO SCH ×2 (05:56→10:40)
[2021-01-31] MEDS: LORazepam 0.5 MG TABLET PO SCH ×2 (05:57→10:40)
[2021-01-31 09:43] VITALS: BP 124/95; PULSE 90; TEMP 96.9
[2021-01-31 10:07] LABS: SARS-CoV-2 NAA Not Detected (Not Detected)
[2021-01-31] MEDS: SULFAMETHOXAZOLE/TRIMETHOPRIM 800MG/160MG D.S. TABLET PO SCH (10:40)
[2021-01-31] MEDS: FLUCONAZOLE 100 MG TABLET (UD) PO SCH (10:40)
[2021-01-31] MEDS: PRENATAL VITAMINS W/ FOLIC ACID TABLET (FP) PO SCH (10:40)
[2021-01-31] MEDS: ABACAVIR/DOLUTEGRAVIR/LAMIVUDI (TRIUMEQ) TABLET -NF PO SCH (10:41)
[2021-01-31] MEDS: NICOTINE 21 MG/24 HOURS TOPICAL PATCH TD SCH (10:42)
[2021-02-01] MEDS ORDERED: LORazepam 0.5 MG TABLET PO ONE (05:00)
== END 2021-01-31 11:20 | disposition other institution (70) | DRG 774 ==
LOC: YASAS 12:59 → Y3N 15:01
PROVIDERS: ADMIT Allergy & Immunology; ATTEND Allergy & Immunology
PROC: HZ2ZZZZ Detoxification Services for Substance Abuse Treatment (ICD-10-PCS; principal; 2021-01-28)
DX: F10.230 Alcohol dependence with withdrawal, uncomplicated (principal); F14.20 Cocaine dependence, uncomplicated; F12.20 Cannabis dependence, uncomplicated; F17.210 Nicotine dependence, cigarettes, uncomplicated; F19.24 Other psychoactive substance dependence with psychoactive substance-induced mood disorder; F19.280 Other psychoactive substance dependence with psychoactive substance-induced anxiety disorder; F19.282 Other psychoactive substance dependence with psychoactive substance-induced sleep disorder; I10 Essential (primary) hypertension; Z21 Asymptomatic human immunodeficiency virus [HIV] infection status; G47.00 Insomnia, unspecified; G62.9 Polyneuropathy, unspecified; R63.4 Abnormal weight loss; R74.01 Elevation of levels of liver transaminase levels; Z86.19 Personal history of other infectious and parasitic diseases; Z62.810 Personal history of physical and sexual abuse in childhood
CPT/HCPCS: 36415; 71046-TC-FY; 80053; 85027; 86593; 86780; C9803; U0003; U0005

== ENCOUNTER 2021-01-31 11:37 | Inpatient (IN) | payer OTHER ==
[2021-01-31] MEDS ORDERED: NICOTINE POLACRILEX 2 MG GUM BUC PRN (12:51)
[2021-01-31] MEDS ORDERED: MAGNESIUM CITRATE 300 ML BOTTLE PO PRN (12:51)
[2021-01-31] MEDS ORDERED: MAGNESIUM HYDROX 2400MG/30ML ORAL SUSPENSION 30 ML CUP PO PRN (12:51)
[2021-01-31] MEDS ORDERED: ACETAMINOPHEN 325 MG TABLET (FP) PO PRN (12:51)
[2021-01-31] MEDS ORDERED: P-EPHED 60MG/TRIPROLIDI 2.5MG TABLET PO PRN (12:51)
[2021-01-31] MEDS ORDERED: LOPERAMIDE HCL 2 MG CAPSULE PO PRN (12:51)
[2021-01-31] MEDS ORDERED: MAG HYDROX/AL HYDROX/SIMETH 30 ML UNIT-DOSE CUP PO PRN (12:51)
[2021-01-31] MEDS ORDERED: guaiFENesin 200 MG/10 ML 10 ML UNIT-DOSE CUPS PO PRN (12:51)
[2021-01-31] MEDS: hydrOXYzine PAMOATE 25 MG CAPSULE (FP) PO SCH ×3 (13:10→21:12)
[2021-01-31] MEDS: THIAMINE HCL 100 MG TABLET (FP) PO SCH (21:12)
[2021-01-31] MEDS: MELATONIN 5 MG TABLETS PO SCH (21:12)
[2021-01-31] MEDS: QUEtiapine FUMARATE 50 MG TABLET PO SCH (21:13)
[2021-02-01] MEDS: IBUPROFEN 400 MG TABLET (FP) PO PRN (03:10)
[2021-02-01] MEDS: hydrOXYzine PAMOATE 25 MG CAPSULE (FP) PO SCH ×5 (07:00→21:22)
[2021-02-01] MEDS: PRENATAL VITAMINS W/ FOLIC ACID TABLET (FP) PO SCH (09:35)
[2021-02-01] MEDS: ABACAVIR/DOLUTEGRAVIR/LAMIVUDI (TRIUMEQ) TABLET -NF PO SCH (09:35)
[2021-02-01] MEDS: SULFAMETHOXAZOLE/TRIMETHOPRIM 800MG/160MG D.S. TABLET PO SCH (09:35)
[2021-02-01] MEDS: NICOTINE 7 MG/24 HOURS TOPICAL PATCH TD SCH (09:36)
[2021-02-01] MEDS: THIAMINE HCL 100 MG TABLET (FP) PO SCH (21:22)
[2021-02-01] MEDS: QUEtiapine FUMARATE 50 MG TABLET PO SCH (21:22)
[2021-02-01] MEDS: MELATONIN 5 MG TABLETS PO SCH (21:22)
[2021-02-02] MEDS ORDERED: MASKS NR ONE (01:15)
[2021-02-02] MEDS: IBUPROFEN 400 MG TABLET (FP) PO PRN (01:18)
[2021-02-02] MEDS: hydrOXYzine PAMOATE 25 MG CAPSULE (FP) PO SCH ×5 (06:03→21:06)
[2021-02-02] MEDS: ABACAVIR/DOLUTEGRAVIR/LAMIVUDI (TRIUMEQ) TABLET -NF PO SCH (07:17)
[2021-02-02] MEDS: PRENATAL VITAMINS W/ FOLIC ACID TABLET (FP) PO SCH (09:43)
[2021-02-02] MEDS: NICOTINE 7 MG/24 HOURS TOPICAL PATCH TD SCH (09:44)
[2021-02-02] MEDS: SULFAMETHOXAZOLE/TRIMETHOPRIM 800MG/160MG D.S. TABLET PO SCH (09:44)
[2021-02-02] MEDS: QUEtiapine FUMARATE 50 MG TABLET PO SCH (21:06)
[2021-02-02] MEDS: THIAMINE HCL 100 MG TABLET (FP) PO SCH (21:06)
[2021-02-02] MEDS: MELATONIN 5 MG TABLETS PO SCH (21:06)
[2021-02-02] MEDS: MENTHOL/PHENOL 1 EACH UD MM PRN (22:56)
[2021-02-03] MEDS ORDERED: PT OWN MED DRAWER 7, Y5N ONE (02:15)
[2021-02-03] MEDS: IBUPROFEN 400 MG TABLET (FP) PO PRN ×2 (03:39→15:08)
[2021-02-03] MEDS: MENTHOL/PHENOL 1 EACH UD MM PRN ×4 (03:40→21:12)
[2021-02-03] MEDS: hydrOXYzine PAMOATE 25 MG CAPSULE (FP) PO SCH ×2 (06:14→09:38)
[2021-02-03] MEDS: ABACAVIR/DOLUTEGRAVIR/LAMIVUDI (TRIUMEQ) TABLET -NF PO SCH (07:16)
[2021-02-03] MEDS: NICOTINE 7 MG/24 HOURS TOPICAL PATCH TD SCH (09:36)
[2021-02-03] MEDS: PRENATAL VITAMINS W/ FOLIC ACID TABLET (FP) PO SCH (09:36)
[2021-02-03] MEDS: SULFAMETHOXAZOLE/TRIMETHOPRIM 800MG/160MG D.S. TABLET PO SCH (09:36)
[2021-02-03] MEDS ORDERED: MASKS NR ONE (18:18)
[2021-02-03] MEDS: THIAMINE HCL 100 MG TABLET (FP) PO SCH (21:11)
[2021-02-03] MEDS: MELATONIN 5 MG TABLETS PO SCH (21:11)
[2021-02-03] MEDS: hydrOXYzine PAMOATE 25 MG CAPSULE (FP) PO PRN (21:11)
[2021-02-03] MEDS: QUEtiapine FUMARATE 50 MG TABLET PO SCH (21:11)
[2021-02-04] MEDS ORDERED: PT OWN MED DRAWER 7, Y5N ONE (02:49)
[2021-02-04] MEDS: MENTHOL/PHENOL 1 EACH UD MM PRN ×3 (06:22→17:56)
[2021-02-04] MEDS: hydrOXYzine PAMOATE 25 MG CAPSULE (FP) PO PRN ×4 (06:23→23:44)
[2021-02-04] MEDS: ABACAVIR/DOLUTEGRAVIR/LAMIVUDI (TRIUMEQ) TABLET -NF PO SCH (07:26)
[2021-02-04] MEDS: SULFAMETHOXAZOLE/TRIMETHOPRIM 800MG/160MG D.S. TABLET PO SCH (09:29)
[2021-02-04] MEDS: PRENATAL VITAMINS W/ FOLIC ACID TABLET (FP) PO SCH (09:29)
[2021-02-04] MEDS: NICOTINE 7 MG/24 HOURS TOPICAL PATCH TD SCH (09:29)
[2021-02-04] MEDS ORDERED: SUVOREXANT 10 MG TABLET PO PRN (22:00)
[2021-02-04] MEDS: THIAMINE HCL 100 MG TABLET (FP) PO SCH (22:36)
[2021-02-04] MEDS: IBUPROFEN 400 MG TABLET (FP) PO PRN (23:44)
[2021-02-05] MEDS ORDERED: PT OWN MED DRAWER 7, Y5N ONE ×2 (03:06→08:47)
[2021-02-05] MEDS: MENTHOL/PHENOL 1 EACH UD MM PRN ×3 (06:32→22:10)
[2021-02-05] MEDS: ABACAVIR/DOLUTEGRAVIR/LAMIVUDI (TRIUMEQ) TABLET -NF PO SCH (07:06)
[2021-02-05] MEDS: PRENATAL VITAMINS W/ FOLIC ACID TABLET (FP) PO SCH (09:47)
[2021-02-05] MEDS: hydrOXYzine PAMOATE 25 MG CAPSULE (FP) PO PRN ×2 (09:48→14:25)
[2021-02-05] MEDS: SULFAMETHOXAZOLE/TRIMETHOPRIM 800MG/160MG D.S. TABLET PO SCH (09:48)
[2021-02-05] MEDS: NICOTINE 7 MG/24 HOURS TOPICAL PATCH TD SCH (09:48)
[2021-02-05] MEDS: METHYL SALICYLATE/MENTHOL OINT 30 GM TUBE TP SCH ×2 (10:50→22:18)
[2021-02-05] MEDS: SUVOREXANT 15 MG TABLET PO PRN (21:18)
[2021-02-05] MEDS: THIAMINE HCL 100 MG TABLET (FP) PO SCH (21:18)
[2021-02-06] MEDS ORDERED: PT OWN MED DRAWER 7, Y5N ONE (02:33)
[2021-02-06] MEDS: MENTHOL/PHENOL 1 EACH UD MM PRN ×2 (06:27→18:59)
[2021-02-06] MEDS: hydrOXYzine PAMOATE 25 MG CAPSULE (FP) PO PRN ×3 (06:28→22:37)
[2021-02-06] MEDS: ABACAVIR/DOLUTEGRAVIR/LAMIVUDI (TRIUMEQ) TABLET -NF PO SCH (07:03)
[2021-02-06] MEDS: PRENATAL VITAMINS W/ FOLIC ACID TABLET (FP) PO SCH (09:54)
[2021-02-06] MEDS: SULFAMETHOXAZOLE/TRIMETHOPRIM 800MG/160MG D.S. TABLET PO SCH (09:55)
[2021-02-06] MEDS: NICOTINE 7 MG/24 HOURS TOPICAL PATCH TD SCH (09:55)
[2021-02-06] MEDS: METHYL SALICYLATE/MENTHOL OINT 30 GM TUBE TP SCH ×2 (09:56→21:25)
[2021-02-06] MEDS: THIAMINE HCL 100 MG TABLET (FP) PO SCH (21:24)
[2021-02-06] MEDS: SUVOREXANT 15 MG TABLET PO PRN (21:26)
[2021-02-07] MEDS ORDERED: PT OWN MED DRAWER 7, Y5N ONE (04:44)
[2021-02-07] MEDS: ABACAVIR/DOLUTEGRAVIR/LAMIVUDI (TRIUMEQ) TABLET -NF PO SCH (07:55)
[2021-02-07] MEDS: MENTHOL/PHENOL 1 EACH UD MM PRN ×3 (07:56→21:35)
[2021-02-07] MEDS: hydrOXYzine PAMOATE 25 MG CAPSULE (FP) PO PRN ×3 (07:56→21:34)
[2021-02-07] MEDS: PRENATAL VITAMINS W/ FOLIC ACID TABLET (FP) PO SCH (09:57)
[2021-02-07] MEDS: SULFAMETHOXAZOLE/TRIMETHOPRIM 800MG/160MG D.S. TABLET PO SCH (09:57)
[2021-02-07] MEDS: NICOTINE 7 MG/24 HOURS TOPICAL PATCH TD SCH (09:58)
[2021-02-07] MEDS: METHYL SALICYLATE/MENTHOL OINT 30 GM TUBE TP SCH ×2 (09:58→21:36)
[2021-02-07] MEDS ORDERED: valACYclovir HCL 500 MG TABLET (FP) PO ONE (13:33)
[2021-02-07] MEDS: valACYclovir HCL 500 MG TABLET (FP) PO SCH (21:34)
[2021-02-07] MEDS: THIAMINE HCL 100 MG TABLET (FP) PO SCH (21:34)
[2021-02-07] MEDS: SUVOREXANT 15 MG TABLET PO PRN (21:36)
[2021-02-08] MEDS: hydrOXYzine PAMOATE 25 MG CAPSULE (FP) PO PRN ×5 (01:48→22:17)
[2021-02-08] MEDS ORDERED: PT OWN MED DRAWER 7, Y5N ONE (02:39)
[2021-02-08] MEDS: ABACAVIR/DOLUTEGRAVIR/LAMIVUDI (TRIUMEQ) TABLET -NF PO SCH (07:09)
[2021-02-08] MEDS: PRENATAL VITAMINS W/ FOLIC ACID TABLET (FP) PO SCH (09:37)
[2021-02-08] MEDS: valACYclovir HCL 500 MG TABLET (FP) PO SCH ×2 (09:37→22:11)
[2021-02-08] MEDS: SULFAMETHOXAZOLE/TRIMETHOPRIM 800MG/160MG D.S. TABLET PO SCH (09:37)
[2021-02-08] MEDS: NICOTINE 7 MG/24 HOURS TOPICAL PATCH TD SCH (09:38)
[2021-02-08] MEDS: METHYL SALICYLATE/MENTHOL OINT 30 GM TUBE TP SCH ×2 (09:38→22:11)
[2021-02-08] MEDS: MENTHOL/PHENOL 1 EACH UD MM PRN (18:12)
[2021-02-08] MEDS: THIAMINE HCL 100 MG TABLET (FP) PO SCH (22:11)
[2021-02-08] MEDS: SUVOREXANT 15 MG TABLET PO PRN (22:16)
[2021-02-09] MEDS ORDERED: PT OWN MED DRAWER 7, Y5N ONE (03:13)
[2021-02-09] MEDS: MENTHOL/PHENOL 1 EACH UD MM PRN ×3 (06:24→21:12)
[2021-02-09] MEDS: hydrOXYzine PAMOATE 25 MG CAPSULE (FP) PO PRN ×4 (06:25→21:12)
[2021-02-09] MEDS: ABACAVIR/DOLUTEGRAVIR/LAMIVUDI (TRIUMEQ) TABLET -NF PO SCH (07:31)
[2021-02-09] MEDS: PRENATAL VITAMINS W/ FOLIC ACID TABLET (FP) PO SCH (09:48)
[2021-02-09] MEDS: valACYclovir HCL 500 MG TABLET (FP) PO SCH ×2 (09:48→21:14)
[2021-02-09] MEDS: SULFAMETHOXAZOLE/TRIMETHOPRIM 800MG/160MG D.S. TABLET PO SCH (09:48)
[2021-02-09] MEDS: NICOTINE 7 MG/24 HOURS TOPICAL PATCH TD SCH (09:49)
[2021-02-09] MEDS: METHYL SALICYLATE/MENTHOL OINT 30 GM TUBE TP SCH ×2 (09:50→21:12)
[2021-02-09] MEDS: SUVOREXANT 15 MG TABLET PO PRN (21:10)
[2021-02-09] MEDS: THIAMINE HCL 100 MG TABLET (FP) PO SCH (21:12)
[2021-02-09] MEDS: METHOCARBAMOL 500 MG TABLET PO PRN (21:12)
[2021-02-10] MEDS: hydrOXYzine PAMOATE 25 MG CAPSULE (FP) PO PRN (03:03)
[2021-02-10] MEDS ORDERED: PT OWN MED DRAWER 7, Y5N ONE (03:20)
[2021-02-10] MEDS: MENTHOL/PHENOL 1 EACH UD MM PRN (06:24)
[2021-02-10] MEDS: METHOCARBAMOL 500 MG TABLET PO PRN (07:18)
[2021-02-10] MEDS: ABACAVIR/DOLUTEGRAVIR/LAMIVUDI (TRIUMEQ) TABLET -NF PO SCH (07:35)
[2021-02-10] MEDS: SULFAMETHOXAZOLE/TRIMETHOPRIM 800MG/160MG D.S. TABLET PO SCH (09:48)
[2021-02-10] MEDS: PRENATAL VITAMINS W/ FOLIC ACID TABLET (FP) PO SCH (09:48)
[2021-02-10] MEDS: NICOTINE 7 MG/24 HOURS TOPICAL PATCH TD SCH (09:49)
[2021-02-10] MEDS: METHYL SALICYLATE/MENTHOL OINT 30 GM TUBE TP SCH ×2 (09:49→21:31)
[2021-02-10] MEDS: valACYclovir HCL 500 MG TABLET (FP) PO SCH (11:01)
[2021-02-10] MEDS: traZODone HCL 50 MG TABLET (FP) PO SCH (21:30)
[2021-02-10] MEDS: THIAMINE HCL 100 MG TABLET (FP) PO SCH (21:30)
[2021-02-10] MEDS: SUVOREXANT 15 MG TABLET PO PRN (22:54)
[2021-02-11] MEDS: hydrOXYzine PAMOATE 25 MG CAPSULE (FP) PO PRN ×3 (06:39→18:33)
[2021-02-11] MEDS: METHOCARBAMOL 500 MG TABLET PO PRN ×3 (06:39→21:09)
[2021-02-11] MEDS: ABACAVIR/DOLUTEGRAVIR/LAMIVUDI (TRIUMEQ) TABLET -NF PO SCH (07:19)
[2021-02-11] MEDS: PRENATAL VITAMINS W/ FOLIC ACID TABLET (FP) PO SCH (09:44)
[2021-02-11] MEDS: SULFAMETHOXAZOLE/TRIMETHOPRIM 800MG/160MG D.S. TABLET PO SCH (09:45)
[2021-02-11] MEDS: NICOTINE 7 MG/24 HOURS TOPICAL PATCH TD SCH (09:46)
[2021-02-11] MEDS: MENTHOL/PHENOL 1 EACH UD MM PRN (09:47)
[2021-02-11] MEDS: METHYL SALICYLATE/MENTHOL OINT 30 GM TUBE TP SCH ×2 (09:47→21:07)
[2021-02-11] MEDS: THIAMINE HCL 100 MG TABLET (FP) PO SCH (21:07)
[2021-02-11] MEDS: traZODone HCL 50 MG TABLET (FP) PO SCH (21:07)
[2021-02-11] MEDS: SUVOREXANT 15 MG TABLET PO PRN (22:01)
[2021-02-12] MEDS: hydrOXYzine PAMOATE 25 MG CAPSULE (FP) PO PRN (06:20)
[2021-02-12] MEDS: MENTHOL/PHENOL 1 EACH UD MM PRN (06:20)
[2021-02-12] MEDS: METHOCARBAMOL 500 MG TABLET PO PRN (06:20)
[2021-02-12] MEDS: ABACAVIR/DOLUTEGRAVIR/LAMIVUDI (TRIUMEQ) TABLET -NF PO SCH (07:01)
[2021-02-12 07:13] VITALS: BP 101/67; PULSE 92; TEMP 97.2
[2021-02-12] MEDS: PRENATAL VITAMINS W/ FOLIC ACID TABLET (FP) PO SCH (09:47)
[2021-02-12] MEDS: SULFAMETHOXAZOLE/TRIMETHOPRIM 800MG/160MG D.S. TABLET PO SCH (09:47)
[2021-02-12] MEDS: METHYL SALICYLATE/MENTHOL OINT 30 GM TUBE TP SCH (09:47)
[2021-02-12] MEDS: NICOTINE 7 MG/24 HOURS TOPICAL PATCH TD SCH (09:48)
== END 2021-02-12 10:05 | disposition home or self-care (01) | DRG 772 ==
LOC: YASAS 11:37 → Y5N 11:39
PROVIDERS: ADMIT Allergy & Immunology; ATTEND Allergy & Immunology
PROC: HZ42ZZZ Group Counseling for Substance Abuse Treatment, Cognitive-Behavioral (ICD-10-PCS; principal; 2021-01-31)
DX: F10.20 Alcohol dependence, uncomplicated (principal); F14.20 Cocaine dependence, uncomplicated; F12.20 Cannabis dependence, uncomplicated; F17.210 Nicotine dependence, cigarettes, uncomplicated; F19.282 Other psychoactive substance dependence with psychoactive substance-induced sleep disorder; F64.0 Transsexualism; Z21 Asymptomatic human immunodeficiency virus [HIV] infection status; G62.9 Polyneuropathy, unspecified; I10 Essential (primary) hypertension; A60.01 Herpesviral infection of penis; M62.838 Other muscle spasm; R76.11 Nonspecific reaction to tuberculin skin test without active tuberculosis; Z62.810 Personal history of physical and sexual abuse in childhood; Z86.19 Personal history of other infectious and parasitic diseases; Y08.89XD Assault by other specified means, subsequent encounter

== ENCOUNTER 2021-08-05 12:01 | Inpatient (IN) | payer OTHER ==
[2021-08-05] MEDS ORDERED: IBUPROFEN 400 MG TABLET (FP) PO PRN (12:43)
[2021-08-05] MEDS ORDERED: ONDANSETRON *ODT* 4 MG TABLET SL PRN (12:43)
[2021-08-05] MEDS ORDERED: NICOTINE 10 MG CARTRIDGE (INHALER) IH PRN (12:43)
[2021-08-05] MEDS ORDERED: BISMUTH SUBSALICYLATE 262 MG/15 ML BTL PO PRN (12:43)
[2021-08-05] MEDS ORDERED: MENTHOL/PHENOL 1 EACH UD MM PRN (12:43)
[2021-08-05] MEDS ORDERED: METHOCARBAMOL 500 MG TABLET PO PRN (12:43)
[2021-08-05] MEDS ORDERED: MAGNESIUM CITRATE 300 ML BOTTLE PO PRN (12:43)
[2021-08-05] MEDS ORDERED: ACETAMINOPHEN 325 MG TABLET (FP) PO PRN ×2 (12:43)
[2021-08-05] MEDS ORDERED: MAGNESIUM HYDROX 2400MG/30ML ORAL SUSPENSION 30 ML CUP PO PRN (12:43)
[2021-08-05] MEDS ORDERED: chlordiazePOXIDE HCL 25 MG CAPSULE PO PRN (12:43)
[2021-08-05] MEDS ORDERED: MAG HYDROX/AL HYDROX/SIMETH 30 ML UNIT-DOSE CUP PO PRN (12:43)
[2021-08-05 12:52] VITALS: BMI 18.4
[2021-08-05] MEDS: NICOTINE 14 MG/24 HOURS TOPICAL PATCH TD SCH (15:19)
[2021-08-05] MEDS: hydrOXYzine PAMOATE 25 MG CAPSULE (FP) PO SCH ×3 (15:20→22:54)
[2021-08-05] MEDS: PRENATAL VITAMINS W/ FOLIC ACID TABLET (FP) PO SCH (15:20)
[2021-08-05 15:47] LABS: ALBUMIN 3.1 g/dl (3.4-5.0); BLOOD UREA NITROGEN 10.8 mg/dL (7-18); CALCIUM 8.4 mg/dL (8.5-10.1)
[2021-08-05 15:51] LABS: CREATININE 1.1 mg/dL (0.55-1.3)
[2021-08-05 15:52] LABS: BILIRUBIN,TOTAL 0.6 mg/dL (0.2-1); TOT PROT 10.3 g/dl (6.4-8.2)
[2021-08-05 16:11] LABS: HEMATOCRIT 39.4 % (35.4-49); HEMOGLOBIN 13.4 GM/dL (11.7-16.9); MEAN CELL VOLUME 94.2 fl (80-96); MEAN PLT VOLUME 7.8 fl (7.5-11.1); PLATELET COUNT 130 10^3/uL (134-434); RBC 4.18 M/mm3 (4.00-5.60); RDW 13.1 % (11.9-15.9); WHITE BLOOD COUNT 4.2 K/mm3 (4.0-10.0)
[2021-08-05] MEDS: chlordiazePOXIDE HCL 25 MG CAPSULE PO SCH ×2 (18:09→22:54)
[2021-08-05] MEDS: THIAMINE HCL 100 MG TABLET (FP) PO SCH (22:54)
[2021-08-05] MEDS: MELATONIN 5 MG TABLETS PO SCH (22:54)
[2021-08-06] MEDS: chlordiazePOXIDE HCL 25 MG CAPSULE PO SCH ×4 (06:16→22:43)
[2021-08-06] MEDS: hydrOXYzine PAMOATE 25 MG CAPSULE (FP) PO SCH ×5 (06:16→22:46)
[2021-08-06] MEDS: PRENATAL VITAMINS W/ FOLIC ACID TABLET (FP) PO SCH (10:33)
[2021-08-06] MEDS: NICOTINE 14 MG/24 HOURS TOPICAL PATCH TD SCH (10:33)
[2021-08-06] MEDS: ABACAVIR/DOLUTEGRAVIR/LAMIVUDI (TRIUMEQ) TABLET -NF PO SCH (10:34)
[2021-08-06] MEDS: FLUCONAZOLE 100 MG TABLET (UD) PO SCH (10:34)
[2021-08-06] MEDS: SULFAMETHOXAZOLE/TRIMETHOPRIM 800MG/160MG D.S. TABLET PO SCH (10:35)
[2021-08-06] MEDS: MELATONIN 5 MG TABLETS PO SCH (22:42)
[2021-08-06] MEDS: THIAMINE HCL 100 MG TABLET (FP) PO SCH (22:43)
[2021-08-06] MEDS: traZODone HCL 50 MG TABLET (FP) PO SCH (22:43)
[2021-08-07] MEDS: hydrOXYzine PAMOATE 25 MG CAPSULE (FP) PO SCH ×5 (05:54→22:10)
[2021-08-07] MEDS: chlordiazePOXIDE HCL 25 MG CAPSULE PO SCH ×4 (05:54→22:09)
[2021-08-07] MEDS: SULFAMETHOXAZOLE/TRIMETHOPRIM 800MG/160MG D.S. TABLET PO SCH (10:11)
[2021-08-07] MEDS: NICOTINE 14 MG/24 HOURS TOPICAL PATCH TD SCH (10:11)
[2021-08-07] MEDS: PRENATAL VITAMINS W/ FOLIC ACID TABLET (FP) PO SCH (10:11)
[2021-08-07] MEDS: FLUCONAZOLE 100 MG TABLET (UD) PO SCH (10:11)
[2021-08-07] MEDS: ABACAVIR/DOLUTEGRAVIR/LAMIVUDI (TRIUMEQ) TABLET -NF PO SCH (10:11)
[2021-08-07] MEDS: THIAMINE HCL 100 MG TABLET (FP) PO SCH (22:09)
[2021-08-07] MEDS: MELATONIN 5 MG TABLETS PO SCH (22:09)
[2021-08-07] MEDS: traZODone HCL 50 MG TABLET (FP) PO SCH (22:09)
[2021-08-08] MEDS ORDERED: chlordiazePOXIDE HCL 10 MG CAPSULE PO PRN
[2021-08-08] MEDS: hydrOXYzine PAMOATE 25 MG CAPSULE (FP) PO SCH ×3 (05:29→14:45)
[2021-08-08] MEDS: chlordiazePOXIDE HCL 10 MG CAPSULE PO SCH ×2 (05:29→10:26)
[2021-08-08 09:28] VITALS: BP 107/78; PULSE 86; TEMP 96.6
[2021-08-08] MEDS: FLUCONAZOLE 100 MG TABLET (UD) PO SCH (10:25)
[2021-08-08] MEDS: PRENATAL VITAMINS W/ FOLIC ACID TABLET (FP) PO SCH (10:26)
[2021-08-08] MEDS: SULFAMETHOXAZOLE/TRIMETHOPRIM 800MG/160MG D.S. TABLET PO SCH (10:26)
[2021-08-08] MEDS: ABACAVIR/DOLUTEGRAVIR/LAMIVUDI (TRIUMEQ) TABLET -NF PO SCH (10:26)
[2021-08-08] MEDS: NICOTINE 14 MG/24 HOURS TOPICAL PATCH TD SCH (10:29)
[2021-08-09] MEDS ORDERED: chlordiazePOXIDE HCL 10 MG CAPSULE PO SCH (05:00)
[2021-08-10] MEDS ORDERED: chlordiazePOXIDE HCL 10 MG CAPSULE PO ONE (05:00)
== END 2021-08-08 12:36 | disposition left against medical advice (07) | DRG 770 ==
LOC: YASAS 12:01 → Y3N 14:15
PROVIDERS: ADMIT Allergy & Immunology; ATTEND Allergy & Immunology
PROC: HZ2ZZZZ Detoxification Services for Substance Abuse Treatment (ICD-10-PCS; principal; 2021-08-05)
DX: F10.230 Alcohol dependence with withdrawal, uncomplicated (principal); F14.20 Cocaine dependence, uncomplicated; F12.20 Cannabis dependence, uncomplicated; F17.210 Nicotine dependence, cigarettes, uncomplicated; F19.280 Other psychoactive substance dependence with psychoactive substance-induced anxiety disorder; F19.282 Other psychoactive substance dependence with psychoactive substance-induced sleep disorder; F19.24 Other psychoactive substance dependence with psychoactive substance-induced mood disorder; F64.0 Transsexualism; Z21 Asymptomatic human immunodeficiency virus [HIV] infection status; G62.9 Polyneuropathy, unspecified; I10 Essential (primary) hypertension; Z62.810 Personal history of physical and sexual abuse in childhood; R63.4 Abnormal weight loss; Z68.1 Body mass index [BMI] 19.9 or less, adult; Z86.19 Personal history of other infectious and parasitic diseases; Z86.2 Personal history of diseases of the blood and blood-forming organs and certain disorders involving the immune mechanism
CPT/HCPCS: 36415; 80053; 85027; 86593; 86780; C9803; U0003; U0005

== ENCOUNTER 2022-03-20 07:46 | Inpatient (IN) | payer OTHER ==
[2022-03-19 15:57] VITALS: BMI 17.4
[2022-03-19] MEDS: diazePAM 5 MG TABLET PO SCH ×2 (19:15→23:38)
[2022-03-19] MEDS: PRENATAL VITAMINS W/ FOLIC ACID TABLET (FP) PO SCH (23:00)
[2022-03-19] MEDS: NICOTINE 14 MG/24 HOURS TOPICAL PATCH TD SCH (23:26)
[2022-03-19] MEDS: hydrOXYzine PAMOATE 25 MG CAPSULE (FP) PO SCH (23:38)
[2022-03-19] MEDS: THIAMINE HCL 100 MG TABLET (FP) PO SCH (23:39)
[2022-03-19] MEDS: MELATONIN 5 MG TABLETS PO SCH (23:39)
[2022-03-19] MEDS: traZODone HCL 100 MG TABLET (FP) PO SCH (23:39)
[2022-03-19] MEDS: NAPROXEN 500 MG TABLET PO SCH (23:40)
[2022-03-20] MEDS: ESTROGENS,CONJUGATED 1.25 MG TABLET PO SCH ×2 (00:21→13:10)
[2022-03-20] MEDS: hydrOXYzine PAMOATE 25 MG CAPSULE (FP) PO SCH ×7 (00:26→22:16)
[2022-03-20] MEDS: diazePAM 5 MG TABLET PO SCH ×4 (05:41→22:16)
[~2022-03-20 07:46] MED LIST: ACETAMINOPHEN 325 MG TABLET (FP) PO PRN; BENZOCAINE/MENTHOL (CHLORASEPTIC ) LOZENGE MM PRN; BISMUTH SUBSALICYLATE 524 MG/30 ML PO PRN; DICYCLOMINE HCL 10 MG CAPSULE PO PRN; IBUPROFEN 400 MG TABLET (FP) PO PRN; IBUPROFEN 600 MG TABLET (FP) PO PRN; LOPERAMIDE HCL 2 MG CAPSULE PO PRN; MAG HYDROX/AL HYDROX/SIMETH 30 ML UNIT-DOSE CUP PO PRN; MAGNESIUM CITRATE 300 ML BOTTLE PO PRN; MAGNESIUM HYDROX 2400MG/30ML ORAL SUSPENSION 30 ML CUP PO PRN; NICOTINE 10 MG CARTRIDGE (INHALER) IH PRN; ONDANSETRON *ODT* 4 MG TABLET SL PRN; diazePAM 5 MG TABLET ONE; diazePAM 5 MG TABLET PO PRN; hydrOXYzine PAMOATE 25 MG CAPSULE (FP) PO ONE
[2022-03-20 10:24] LABS: HEMATOCRIT 34.9 % (35.4-49); HEMOGLOBIN 11.7 GM/dL (11.7-16.9); MCH 32.1 pg (25.7-33.7); MCHC 33.5 g/dl (32.0-35.9); MEAN CELL VOLUME 95.9 fl (80-96); MEAN PLT VOLUME 7.7 fl (7.5-11.1); PLATELET COUNT 125 10^3/uL (134-434); RBC 3.64 M/mm3 (4.00-5.60); RDW 13.2 % (11.9-15.9); WHITE BLOOD COUNT 2.6 K/mm3 (4.0-10.0)
[2022-03-20 10:25] LABS: CALCIUM 8.1 mg/dL (8.5-10.1)
[2022-03-20 10:26] LABS: ALBUMIN 2.8 g/dl (3.4-5.0); BLOOD UREA NITROGEN 13.2 mg/dL (7-18)
[2022-03-20 10:28] LABS: CREATININE 0.8 mg/dL (0.55-1.3)
[2022-03-20] MEDS ORDERED: diazePAM 5 MG TABLET ONE (10:28)
[2022-03-20] MEDS ORDERED: hydrOXYzine PAMOATE 25 MG CAPSULE (FP) PO ONE (10:29)
[2022-03-20 10:30] LABS: BILIRUBIN,TOTAL 0.8 mg/dL (0.2-1); TOT PROT 8.4 g/dl (6.4-8.2)
[2022-03-20] MEDS: ABACAVIR/DOLUTEGRAVIR/LAMIVUDI (TRIUMEQ) TABLET -NF PO SCH (10:30)
[2022-03-20] MEDS: NAPROXEN 500 MG TABLET PO SCH ×2 (10:30→22:16)
[2022-03-20] MEDS: PRENATAL VITAMINS W/ FOLIC ACID TABLET (FP) PO SCH (10:30)
[2022-03-20] MEDS: FLUCONAZOLE 100 MG TABLET (UD) PO SCH (10:31)
[2022-03-20] MEDS: SULFAMETHOXAZOLE/TRIMETHOPRIM 800MG/160MG D.S. TABLET PO SCH (10:31)
[2022-03-20] MEDS: NICOTINE 14 MG/24 HOURS TOPICAL PATCH TD SCH (10:51)
[2022-03-20] MEDS ORDERED: NICOTINE 14 MG/24 HOURS TOPICAL PATCH TD ONE (10:52)
[2022-03-20] MEDS: METHOCARBAMOL 500 MG TABLET PO PRN (18:42)
[2022-03-20] MEDS: traZODone HCL 100 MG TABLET (FP) PO SCH (22:16)
[2022-03-20] MEDS: THIAMINE HCL 100 MG TABLET (FP) PO SCH (22:16)
[2022-03-20] MEDS: MELATONIN 5 MG TABLETS PO SCH (22:16)
[2022-03-21] MEDS: hydrOXYzine PAMOATE 25 MG CAPSULE (FP) PO SCH ×5 (05:52→22:32)
[2022-03-21] MEDS: diazePAM 5 MG TABLET PO SCH ×3 (05:53→22:32)
[2022-03-21] MEDS: SULFAMETHOXAZOLE/TRIMETHOPRIM 800MG/160MG D.S. TABLET PO SCH (10:39)
[2022-03-21] MEDS: PRENATAL VITAMINS W/ FOLIC ACID TABLET (FP) PO SCH (10:40)
[2022-03-21] MEDS: NAPROXEN 500 MG TABLET PO SCH ×2 (10:40→22:32)
[2022-03-21] MEDS: NICOTINE 14 MG/24 HOURS TOPICAL PATCH TD SCH (10:40)
[2022-03-21] MEDS: ESTROGENS,CONJUGATED 1.25 MG TABLET PO SCH (10:40)
[2022-03-21] MEDS: FLUCONAZOLE 100 MG TABLET (UD) PO SCH (12:16)
[2022-03-21] MEDS: ABACAVIR/DOLUTEGRAVIR/LAMIVUDI (TRIUMEQ) TABLET -NF PO SCH (12:17)
[2022-03-21] MEDS: THIAMINE HCL 100 MG TABLET (FP) PO SCH (22:32)
[2022-03-21] MEDS: MELATONIN 5 MG TABLETS PO SCH (22:32)
[2022-03-21] MEDS: traZODone HCL 100 MG TABLET (FP) PO SCH (22:32)
[2022-03-22] MEDS: hydrOXYzine PAMOATE 25 MG CAPSULE (FP) PO SCH ×5 (06:19→22:46)
[2022-03-22] MEDS: diazePAM 5 MG TABLET PO SCH ×2 (06:19→17:49)
[2022-03-22] MEDS: PRENATAL VITAMINS W/ FOLIC ACID TABLET (FP) PO SCH (10:29)
[2022-03-22] MEDS: NAPROXEN 500 MG TABLET PO SCH ×2 (10:30→22:46)
[2022-03-22] MEDS: SULFAMETHOXAZOLE/TRIMETHOPRIM 800MG/160MG D.S. TABLET PO SCH (10:30)
[2022-03-22] MEDS: ESTROGENS,CONJUGATED 1.25 MG TABLET PO SCH (10:30)
[2022-03-22] MEDS: ABACAVIR/DOLUTEGRAVIR/LAMIVUDI (TRIUMEQ) TABLET -NF PO SCH (10:30)
[2022-03-22] MEDS: FLUCONAZOLE 100 MG TABLET (UD) PO SCH (10:31)
[2022-03-22] MEDS: NICOTINE 14 MG/24 HOURS TOPICAL PATCH TD SCH (10:31)
[2022-03-22] MEDS: METHOCARBAMOL 500 MG TABLET PO PRN (17:49)
[2022-03-22] MEDS: THIAMINE HCL 100 MG TABLET (FP) PO SCH (22:45)
[2022-03-22] MEDS: MELATONIN 5 MG TABLETS PO SCH (22:45)
[2022-03-22] MEDS: traZODone HCL 100 MG TABLET (FP) PO SCH (22:46)
[2022-03-23] MEDS ORDERED: diazePAM 5 MG TABLET PO ONE (06:00)
[2022-03-23] MEDS: hydrOXYzine PAMOATE 25 MG CAPSULE (FP) PO SCH ×3 (06:06→14:51)
[2022-03-23] MEDS: NAPROXEN 500 MG TABLET PO SCH (09:54)
[2022-03-23] MEDS: FLUCONAZOLE 100 MG TABLET (UD) PO SCH (09:54)
[2022-03-23] MEDS: ESTROGENS,CONJUGATED 1.25 MG TABLET PO SCH (09:54)
[2022-03-23] MEDS: SULFAMETHOXAZOLE/TRIMETHOPRIM 800MG/160MG D.S. TABLET PO SCH (09:54)
[2022-03-23] MEDS: NICOTINE 14 MG/24 HOURS TOPICAL PATCH TD SCH (09:55)
[2022-03-23] MEDS: PRENATAL VITAMINS W/ FOLIC ACID TABLET (FP) PO SCH (09:55)
[2022-03-23] MEDS: ABACAVIR/DOLUTEGRAVIR/LAMIVUDI (TRIUMEQ) TABLET -NF PO SCH (09:57)
[2022-03-23 12:51] VITALS: BP 99/63; PULSE 80; RESP 17; TEMP 96.9
== END 2022-03-23 15:35 | disposition home or self-care (01) | DRG 774 ==
LOC: YASAS 07:46 → Y6N 12:30
PROVIDERS: ADMIT Allergy & Immunology; ATTEND Surgery
PROC: HZ2ZZZZ Detoxification Services for Substance Abuse Treatment (ICD-10-PCS; principal; 2022-03-20)
DX: F10.230 Alcohol dependence with withdrawal, uncomplicated (principal); F14.20 Cocaine dependence, uncomplicated; F12.20 Cannabis dependence, uncomplicated; F17.210 Nicotine dependence, cigarettes, uncomplicated; F19.282 Other psychoactive substance dependence with psychoactive substance-induced sleep disorder; F19.24 Other psychoactive substance dependence with psychoactive substance-induced mood disorder; F41.8 Other specified anxiety disorders; F64.0 Transsexualism; Z21 Asymptomatic human immunodeficiency virus [HIV] infection status; D72.819 Decreased white blood cell count, unspecified; R74.01 Elevation of levels of liver transaminase levels; R74.8 Abnormal levels of other serum enzymes; R63.4 Abnormal weight loss; Z68.1 Body mass index [BMI] 19.9 or less, adult; Z86.19 Personal history of other infectious and parasitic diseases
CPT/HCPCS: 36415; 80053; 85027; 86593; 86780; C9803-CS; J1410; U0003; U0005

== ENCOUNTER 2022-07-30 20:08 | Inpatient (IN) | payer OTHER ==
[2022-07-30 22:49] VITALS: BMI 18.4
[2022-07-30] MEDS ORDERED: LOPERAMIDE HCL 2 MG CAPSULE PO PRN (23:50)
[2022-07-30] MEDS ORDERED: BENZOCAINE/MENTHOL (CHLORASEPTIC ) LOZENGE MM PRN (23:50)
[2022-07-30] MEDS ORDERED: METHOCARBAMOL 500 MG TABLET PO PRN (23:50)
[2022-07-30] MEDS ORDERED: hydrOXYzine PAMOATE 25 MG CAPSULE (FP) PO PRN (23:50)
[2022-07-30] MEDS ORDERED: NICOTINE POLACRILEX 2 MG GUM BUC PRN (23:50)
[2022-07-30] MEDS ORDERED: ONDANSETRON *ODT* 4 MG TABLET SL PRN (23:50)
[2022-07-30] MEDS ORDERED: MAGNESIUM HYDROX 2400MG/30ML ORAL SUSPENSION 30 ML CUP PO PRN (23:50)
[2022-07-30] MEDS ORDERED: POLYETHYLENE GLYCOL (HEALTHYLAX) 3350 17 GM PACKET PO PRN (23:50)
[2022-07-30] MEDS ORDERED: ACETAMINOPHEN 325 MG TABLET (FP) PO PRN ×2 (23:50)
[2022-07-30] MEDS ORDERED: IBUPROFEN 400 MG TABLET (FP) PO PRN (23:50)
[2022-07-30] MEDS ORDERED: DICYCLOMINE HCL 10 MG CAPSULE PO PRN (23:50)
[2022-07-30] MEDS ORDERED: BISMUTH SUBSALICYLATE 524 MG/30 ML PO PRN (23:50)
[2022-07-30] MEDS ORDERED: IBUPROFEN 600 MG TABLET (FP) PO PRN (23:50)
[2022-07-30] MEDS ORDERED: MAG HYDROX/AL HYDROX/SIMETH 30 ML UNIT-DOSE CUP PO PRN (23:50)
[2022-07-30] MEDS ORDERED: NALOXONE HCL (KLOXXADO) 8 MG SPRAY NS PRN (23:50)
[2022-07-31] MEDS: CLOTRIMAZOLE 10 MG TROCHE PO SCH ×3 (06:44→13:54)
[2022-07-31 09:50] VITALS: RESP 17
[2022-07-31] MEDS ORDERED: NICOTINE 14 MG/24 HOURS TOPICAL PATCH TD SCH (10:00)
[2022-07-31] MEDS ORDERED: PRENATAL VITAMINS W/ FOLIC ACID TABLET (FP) PO SCH (10:00)
[2022-07-31 11:11] LABS: HEMATOCRIT 34.6 % (35.4-49); HEMOGLOBIN 11.2 GM/dL (11.7-16.9); MCH 30.3 pg (25.7-33.7); MCHC 32.3 g/dl (32.0-35.9); MEAN PLT VOLUME 7.2 fl (7.5-11.1); PLATELET COUNT 196 10^3/uL (134-434); RBC 3.69 M/mm3 (4.00-5.60); WHITE BLOOD COUNT 2.6 K/mm3 (4.0-10.0)
[2022-07-31 11:20] LABS: ALBUMIN 2.7 g/dl (3.4-5.0); CALCIUM 8.2 mg/dL (8.5-10.1)
[2022-07-31 11:23] LABS: CREATININE 0.9 mg/dL (0.55-1.3)
[2022-07-31 11:25] LABS: BILIRUBIN,TOTAL 0.2 mg/dL (0.2-1); TOT PROT 9.2 g/dl (6.4-8.2)
[2022-07-31 13:07] VITALS: BP 113/73; PULSE 90; TEMP 97.3
[2022-07-31] MEDS ORDERED: THIAMINE HCL 100 MG TABLET (FP) PO SCH (22:00)
[2022-07-31] MEDS ORDERED: traZODone HCL 100 MG TABLET (FP) PO SCH (22:00)
[2022-07-31] MEDS ORDERED: MELATONIN 5 MG TABLETS PO SCH (22:00)
== END 2022-07-31 14:42 | disposition home or self-care (01) | DRG 774 ==
LOC: YASAS 20:08 → Y6N 07-31 02:32
PROVIDERS: ADMIT Allergy & Immunology; ATTEND Surgery
PROC: HZ2ZZZZ Detoxification Services for Substance Abuse Treatment (ICD-10-PCS; principal; 2022-07-31)
DX: F10.230 Alcohol dependence with withdrawal, uncomplicated (principal); F14.20 Cocaine dependence, uncomplicated; F12.20 Cannabis dependence, uncomplicated; F17.210 Nicotine dependence, cigarettes, uncomplicated; F19.280 Other psychoactive substance dependence with psychoactive substance-induced anxiety disorder; F19.282 Other psychoactive substance dependence with psychoactive substance-induced sleep disorder; F64.0 Transsexualism; U07.1 COVID-19; Z21 Asymptomatic human immunodeficiency virus [HIV] infection status; B37.0 Candidal stomatitis; I10 Essential (primary) hypertension; M10.071 Idiopathic gout, right ankle and foot; Z62.810 Personal history of physical and sexual abuse in childhood; Z91.410 Personal history of adult physical and sexual abuse
CPT/HCPCS: 36415; 80053; 85027; 86593; 86780; 87811; C9803-CS; U0003; U0005

== ENCOUNTER 2022-11-19 10:09 | Inpatient (IN) | payer OTHER ==
[~2022-11-19 10:09] MED LIST changes: -ACETAMINOPHEN 325 MG TABLET (FP) PO PRN; -BENZOCAINE/MENTHOL (CHLORASEPTIC ) LOZENGE MM PRN; -BISMUTH SUBSALICYLATE 524 MG/30 ML PO PRN; -DICYCLOMINE HCL 10 MG CAPSULE PO PRN; +FLUCONAZOLE 100 MG TABLET (UD) PO SCH; -IBUPROFEN 400 MG TABLET (FP) PO PRN; -IBUPROFEN 600 MG TABLET (FP) PO PRN; -LOPERAMIDE HCL 2 MG CAPSULE PO PRN; -MAG HYDROX/AL HYDROX/SIMETH 30 ML UNIT-DOSE CUP PO PRN; -MAGNESIUM CITRATE 300 ML BOTTLE PO PRN; -MAGNESIUM HYDROX 2400MG/30ML ORAL SUSPENSION 30 ML CUP PO PRN; -NICOTINE 10 MG CARTRIDGE (INHALER) IH PRN; -ONDANSETRON *ODT* 4 MG TABLET SL PRN; +SULFAMETHOXAZOLE/TRIMETHOPRIM 800MG/160MG D.S. TABLET PO SCH; -diazePAM 5 MG TABLET ONE; -diazePAM 5 MG TABLET PO PRN; -hydrOXYzine PAMOATE 25 MG CAPSULE (FP) PO ONE
[2022-11-19 10:45] VITALS: BMI 16.9
[2022-11-19] MEDS ORDERED: IBUPROFEN 600 MG TABLET (FP) PO PRN (11:19)
[2022-11-19] MEDS ORDERED: MAGNESIUM HYDROX 2400MG/30ML ORAL SUSPENSION 30 ML CUP PO PRN (11:19)
[2022-11-19] MEDS ORDERED: METHOCARBAMOL 500 MG TABLET PO PRN (11:19)
[2022-11-19] MEDS ORDERED: ONDANSETRON *ODT* 4 MG TABLET SL PRN (11:19)
[2022-11-19] MEDS ORDERED: NICOTINE POLACRILEX 2 MG GUM BUC PRN (11:19)
[2022-11-19] MEDS ORDERED: IBUPROFEN 400 MG TABLET (FP) PO PRN (11:19)
[2022-11-19] MEDS ORDERED: chlordiazePOXIDE HCL 25 MG CAPSULE PO PRN (11:19)
[2022-11-19] MEDS ORDERED: DICYCLOMINE HCL 10 MG CAPSULE PO PRN (11:19)
[2022-11-19] MEDS ORDERED: BENZONATATE 200 MG CAPSULE PO PRN (11:19)
[2022-11-19] MEDS ORDERED: guaiFENesin 600 MG TABLET.ER (FP) PO PRN (11:19)
[2022-11-19] MEDS ORDERED: ACETAMINOPHEN 325 MG TABLET (FP) PO PRN (11:19)
[2022-11-19] MEDS ORDERED: BISMUTH SUBSALICYLATE 262 MG/15 ML BTL PO PRN (11:19)
[2022-11-19] MEDS ORDERED: POLYETHYLENE GLYCOL (HEALTHYLAX) 3350 17 GM PACKET PO PRN (11:19)
[2022-11-19] MEDS ORDERED: LOPERAMIDE HCL 2 MG CAPSULE PO PRN (11:19)
[2022-11-19] MEDS ORDERED: MAG HYDROX/AL HYDROX/SIMETH 30 ML UNIT-DOSE CUP PO PRN (11:19)
[2022-11-19] MEDS ORDERED: NICOTINE 14 MG/24 HOURS TOPICAL PATCH TD PRN (11:19)
[2022-11-19] MEDS ORDERED: NYSTATIN 500,000 UNITS/5 ML SUSPENSION PO SCH (11:45)
[2022-11-19] MEDS ORDERED: ABACAVIR/DOLUTEGRAVIR/LAMIVUDI (TRIUMEQ) TABLET PO SCH (11:45)
[2022-11-19] MEDS: NYSTATIN 500,000 UNITS/5 ML SUSPENSION PO SCH ×2 (13:59→18:03)
[2022-11-19 14:28] LABS: HEMATOCRIT 36.8 % (35.4-49); HEMOGLOBIN 12.5 GM/dL (11.7-16.9); MCH 31.8 pg (25.7-33.7); MEAN CELL VOLUME 93.4 fl (80-96); MEAN PLT VOLUME 7.9 fl (7.5-11.1); PLATELET COUNT 212 10^3/uL (134-434); RBC 3.94 M/mm3 (4.00-5.60); RDW 13.3 % (11.9-15.9); WHITE BLOOD COUNT 3.2 K/mm3 (4.0-10.0)
[2022-11-19 14:30] LABS: CALCIUM 8.5 mg/dL (8.5-10.1)
[2022-11-19 14:31] LABS: ALBUMIN 2.9 g/dl (3.4-5.0); BLOOD UREA NITROGEN 7.1 mg/dL (7-18)
[2022-11-19 14:34] LABS: CREATININE 0.7 mg/dL (0.55-1.3)
[2022-11-19 14:36] LABS: BILIRUBIN,TOTAL 0.2 mg/dL (0.2-1); TOT PROT 9.4 g/dl (6.4-8.2)
[2022-11-19] MEDS: ABACAVIR/DOLUTEGRAVIR/LAMIVUDI (TRIUMEQ) TABLET PO SCH (15:45)
[2022-11-19] MEDS: chlordiazePOXIDE HCL 25 MG CAPSULE PO SCH ×2 (17:22→22:13)
[2022-11-19] MEDS: hydrOXYzine PAMOATE 25 MG CAPSULE (FP) PO PRN (22:13)
[2022-11-19] MEDS: THIAMINE HCL 100 MG TABLET (FP) PO SCH (22:13)
[2022-11-19] MEDS: MELATONIN 5 MG TABLETS PO SCH (22:13)
[2022-11-20] MEDS: NYSTATIN 500,000 UNITS/5 ML SUSPENSION PO SCH ×4 (01:00→17:48)
[2022-11-20] MEDS: chlordiazePOXIDE HCL 25 MG CAPSULE PO SCH ×4 (05:16→22:27)
[2022-11-20] MEDS: hydrOXYzine PAMOATE 25 MG CAPSULE (FP) PO PRN (10:17)
[2022-11-20] MEDS: SULFAMETHOXAZOLE/TRIMETHOPRIM 800MG/160MG D.S. TABLET PO SCH (10:17)
[2022-11-20] MEDS: ABACAVIR/DOLUTEGRAVIR/LAMIVUDI (TRIUMEQ) TABLET PO SCH (10:19)
[2022-11-20] MEDS: PRENATAL VITAMINS W/ FOLIC ACID TABLET (FP) PO SCH (10:20)
[2022-11-20] MEDS: FLUCONAZOLE 100 MG TABLET (UD) PO SCH (10:21)
[2022-11-20] MEDS: MELATONIN 5 MG TABLETS PO SCH (22:27)
[2022-11-20] MEDS: THIAMINE HCL 100 MG TABLET (FP) PO SCH (22:27)
[2022-11-21] MEDS: NYSTATIN 500,000 UNITS/5 ML SUSPENSION PO SCH ×4 (00:01→17:56)
[2022-11-21] MEDS: chlordiazePOXIDE HCL 25 MG CAPSULE PO SCH ×4 (05:20→22:39)
[2022-11-21] MEDS: SULFAMETHOXAZOLE/TRIMETHOPRIM 800MG/160MG D.S. TABLET PO SCH (10:25)
[2022-11-21] MEDS: FLUCONAZOLE 100 MG TABLET (UD) PO SCH (10:27)
[2022-11-21] MEDS: PRENATAL VITAMINS W/ FOLIC ACID TABLET (FP) PO SCH (10:27)
[2022-11-21] MEDS: ABACAVIR/DOLUTEGRAVIR/LAMIVUDI (TRIUMEQ) TABLET PO SCH (10:28)
[2022-11-21] MEDS: THIAMINE HCL 100 MG TABLET (FP) PO SCH (22:38)
[2022-11-21] MEDS: MELATONIN 5 MG TABLETS PO SCH (22:40)
[2022-11-22] MEDS ORDERED: chlordiazePOXIDE HCL 10 MG CAPSULE PO PRN
[2022-11-22] MEDS: NYSTATIN 500,000 UNITS/5 ML SUSPENSION PO SCH ×4 (01:51→17:23)
[2022-11-22] MEDS: chlordiazePOXIDE HCL 10 MG CAPSULE PO SCH ×4 (05:15→23:43)
[2022-11-22] MEDS: hydrOXYzine PAMOATE 25 MG CAPSULE (FP) PO PRN (05:19)
[2022-11-22] MEDS: PRENATAL VITAMINS W/ FOLIC ACID TABLET (FP) PO SCH (10:36)
[2022-11-22] MEDS: ABACAVIR/DOLUTEGRAVIR/LAMIVUDI (TRIUMEQ) TABLET PO SCH (10:37)
[2022-11-22] MEDS: FLUCONAZOLE 100 MG TABLET (UD) PO SCH (10:37)
[2022-11-22] MEDS: SULFAMETHOXAZOLE/TRIMETHOPRIM 800MG/160MG D.S. TABLET PO SCH (10:37)
[2022-11-22] MEDS: BENZOCAINE/MENTHOL (CHLORASEPTIC ) LOZENGE MM PRN (18:42)
[2022-11-22] MEDS: THIAMINE HCL 100 MG TABLET (FP) PO SCH (22:31)
[2022-11-22] MEDS: MELATONIN 5 MG TABLETS PO SCH (22:31)
[2022-11-23] MEDS: NYSTATIN 500,000 UNITS/5 ML SUSPENSION PO SCH ×4 (00:11→18:53)
[2022-11-23] MEDS: BENZOCAINE/MENTHOL (CHLORASEPTIC ) LOZENGE MM PRN (02:21)
[2022-11-23] MEDS: chlordiazePOXIDE HCL 10 MG CAPSULE PO SCH ×2 (05:22→17:32)
[2022-11-23] MEDS: SULFAMETHOXAZOLE/TRIMETHOPRIM 800MG/160MG D.S. TABLET PO SCH (09:47)
[2022-11-23] MEDS: ABACAVIR/DOLUTEGRAVIR/LAMIVUDI (TRIUMEQ) TABLET PO SCH (09:48)
[2022-11-23] MEDS: FLUCONAZOLE 100 MG TABLET (UD) PO SCH (09:48)
[2022-11-23] MEDS: PRENATAL VITAMINS W/ FOLIC ACID TABLET (FP) PO SCH (09:48)
[2022-11-23] MEDS: MELATONIN 5 MG TABLETS PO SCH (22:20)
[2022-11-23] MEDS: THIAMINE HCL 100 MG TABLET (FP) PO SCH (22:20)
[2022-11-23] MEDS: hydrOXYzine PAMOATE 25 MG CAPSULE (FP) PO PRN (22:20)
[2022-11-24] MEDS: NYSTATIN 500,000 UNITS/5 ML SUSPENSION PO SCH ×2 (00:40→06:36)
[2022-11-24] MEDS ORDERED: chlordiazePOXIDE HCL 10 MG CAPSULE PO ONE (05:00)
[2022-11-24 06:15] VITALS: BP 108/78; PULSE 98; RESP 17; TEMP 97.3
== END 2022-11-24 08:55 | disposition home or self-care (01) | DRG 774 ==
LOC: YASAS 10:09 → Y6N 13:35
PROVIDERS: ADMIT Allergy & Immunology; ATTEND Surgery
PROC: HZ2ZZZZ Detoxification Services for Substance Abuse Treatment (ICD-10-PCS; principal; 2022-11-19)
DX: F10.230 Alcohol dependence with withdrawal, uncomplicated (principal); F14.20 Cocaine dependence, uncomplicated; F12.20 Cannabis dependence, uncomplicated; F17.210 Nicotine dependence, cigarettes, uncomplicated; F19.282 Other psychoactive substance dependence with psychoactive substance-induced sleep disorder; F19.280 Other psychoactive substance dependence with psychoactive substance-induced anxiety disorder; B20 Human immunodeficiency virus [HIV] disease; B37.0 Candidal stomatitis; R76.8 Other specified abnormal immunological findings in serum; Z62.810 Personal history of physical and sexual abuse in childhood; R63.4 Abnormal weight loss; Z68.1 Body mass index [BMI] 19.9 or less, adult; Z86.19 Personal history of other infectious and parasitic diseases; Z86.11 Personal history of tuberculosis; Z91.410 Personal history of adult physical and sexual abuse
CPT/HCPCS: 36415; 71046-TC-FY; 80053; 85027; 86593; 86780; 87811; C9803-CS; U0003; U0005

== ENCOUNTER 2023-01-27 10:47 | Inpatient (IN) | payer OTHER ==
[2023-01-27 11:00] VITALS: BMI 17.4
[2023-01-27] MEDS ORDERED: DICYCLOMINE HCL 10 MG CAPSULE PO PRN (12:46)
[2023-01-27] MEDS ORDERED: BENZOCAINE/MENTHOL (CHLORASEPTIC ) LOZENGE MM PRN (12:46)
[2023-01-27] MEDS ORDERED: MAG HYDROX/AL HYDROX/SIMETH 30 ML UNIT-DOSE CUP PO PRN (12:46)
[2023-01-27] MEDS ORDERED: ACETAMINOPHEN 325 MG TABLET (FP) PO PRN (12:46)
[2023-01-27] MEDS ORDERED: NICOTINE 10 MG CARTRIDGE (INHALER) IH PRN (12:46)
[2023-01-27] MEDS ORDERED: BENZONATATE 200 MG CAPSULE PO PRN (12:46)
[2023-01-27] MEDS ORDERED: IBUPROFEN 400 MG TABLET (FP) PO PRN (12:46)
[2023-01-27] MEDS ORDERED: ONDANSETRON *ODT* 4 MG TABLET SL PRN (12:46)
[2023-01-27] MEDS ORDERED: guaiFENesin 600 MG TABLET.ER (FP) PO PRN (12:46)
[2023-01-27] MEDS ORDERED: MAGNESIUM HYDROX 2400MG/30ML ORAL SUSPENSION 30 ML CUP PO PRN (12:46)
[2023-01-27] MEDS ORDERED: hydrOXYzine PAMOATE 25 MG CAPSULE (FP) PO PRN (12:46)
[2023-01-27] MEDS ORDERED: POLYETHYLENE GLYCOL (HEALTHYLAX) 3350 17 GM PACKET PO PRN (12:46)
[2023-01-27] MEDS ORDERED: METHOCARBAMOL 500 MG TABLET PO PRN (12:46)
[2023-01-27] MEDS ORDERED: LOPERAMIDE HCL 2 MG CAPSULE PO PRN (12:46)
[2023-01-27] MEDS ORDERED: IBUPROFEN 600 MG TABLET (FP) PO PRN (12:46)
[2023-01-27] MEDS ORDERED: LORazepam 1 MG TABLET PO PRN (12:46)
[2023-01-27] MEDS ORDERED: NICOTINE POLACRILEX 2 MG GUM BUC PRN (12:46)
[2023-01-27] MEDS ORDERED: NICOTINE 14 MG/24 HOURS TOPICAL PATCH TD PRN (12:46)
[2023-01-27] MEDS ORDERED: BISMUTH SUBSALICYLATE 262 MG/15 ML BTL PO PRN (12:46)
[2023-01-27] MEDS ORDERED: ALBUTEROL SO4 HFA INHALER IH PRN (12:51)
[2023-01-27] MEDS: SULFAMETHOXAZOLE/TRIMETHOPRIM 800MG/160MG D.S. TABLET PO SCH (14:08)
[2023-01-27] MEDS: ABACAVIR/DOLUTEGRAVIR/LAMIVUDI (TRIUMEQ) TABLET PO SCH (14:17)
[2023-01-27] MEDS: CLOTRIMAZOLE 10 MG TROCHE PO SCH ×3 (14:17→22:26)
[2023-01-27 16:40] LABS: HEMATOCRIT 34.9 % (35.4-49); HEMOGLOBIN 11.4 GM/dL (11.7-16.9); MCHC 32.8 g/dl (32.0-35.9); MEAN CELL VOLUME 91.6 fl (80-96); PLATELET COUNT 163 10^3/uL (134-434); RBC 3.81 M/mm3 (4.00-5.60); RDW 16.6 % (11.9-15.9); WHITE BLOOD COUNT 6.1 K/mm3 (4.0-10.0)
[2023-01-27] MEDS ORDERED: LORazepam 2 MG TABLET PO SCH (17:00)
[2023-01-27 17:03] LABS: POTASSIUM 4.4 mmol/L (3.5-5.1)
[2023-01-27 17:10] LABS: ALBUMIN 3.2 g/dl (3.4-5.0); BLOOD UREA NITROGEN 9.7 mg/dL (7-18); CALCIUM 8.5 mg/dL (8.5-10.1)
[2023-01-27 17:13] LABS: CREATININE 0.9 mg/dL (0.55-1.3)
[2023-01-27 17:16] LABS: BILIRUBIN,TOTAL 0.8 mg/dL (0.2-1); TOT PROT 9.2 g/dl (6.4-8.2)
[2023-01-27] MEDS: LORazepam 1 MG TABLET PO SCH ×2 (17:43→22:26)
[2023-01-27] MEDS: THIAMINE HCL 100 MG TABLET (FP) PO SCH (22:26)
[2023-01-27] MEDS: traZODone HCL 50 MG TABLET (FP) PO SCH (22:26)
[2023-01-27] MEDS: MELATONIN 5 MG TABLETS PO SCH (22:26)
[2023-01-27] MEDS: BUDESONIDE/FORMETEROL FUMARATE 160/4.5 mcg INHALER IH SCH (22:40)
[2023-01-28] MEDS: CLOTRIMAZOLE 10 MG TROCHE PO SCH ×5 (05:17→22:05)
[2023-01-28] MEDS: LORazepam 1 MG TABLET PO SCH ×4 (05:17→22:05)
[2023-01-28] MEDS: PRENATAL VITAMINS W/ FOLIC ACID TABLET (FP) PO SCH (10:17)
[2023-01-28] MEDS: SULFAMETHOXAZOLE/TRIMETHOPRIM 800MG/160MG D.S. TABLET PO SCH (10:18)
[2023-01-28] MEDS: BUDESONIDE/FORMETEROL FUMARATE 160/4.5 mcg INHALER IH SCH ×2 (10:18→22:07)
[2023-01-28] MEDS: ABACAVIR/DOLUTEGRAVIR/LAMIVUDI (TRIUMEQ) TABLET PO SCH (10:18)
[2023-01-28 13:54] LABS: PH,URINE 7.5 (5.0-8.0); URINE APPEARANCE CLEAR; URINE BILIRUBIN NEGATIVE (NEGATIVE); URINE COLOR YELLOW; URINE GLUCOSE (UA) NEGATIVE (NEGATIVE); URINE KETONE NEGATIVE (NEGATIVE); URINE LEUK ESTERASE NEGATIVE (NEGATIVE); URINE NITRITE NEGATIVE (NEGATIVE); URINE PROTEIN NEGATIVE (NEGATIVE)
[2023-01-28] MEDS ORDERED: QUEtiapine FUMARATE 100 MG TABLET (FP) PO SCH (22:00)
[2023-01-28] MEDS: traZODone HCL 50 MG TABLET (FP) PO SCH (22:05)
[2023-01-28] MEDS: THIAMINE HCL 100 MG TABLET (FP) PO SCH (22:05)
[2023-01-28] MEDS: MELATONIN 5 MG TABLETS PO SCH (22:05)
[2023-01-29] MEDS: LORazepam 1 MG TABLET PO SCH ×2 (05:58→10:20)
[2023-01-29] MEDS: CLOTRIMAZOLE 10 MG TROCHE PO SCH ×2 (05:59→10:20)
[2023-01-29 09:09] VITALS: BP 109/79; PULSE 95; RESP 16; TEMP 97.1
[2023-01-29] MEDS: BUDESONIDE/FORMETEROL FUMARATE 160/4.5 mcg INHALER IH SCH (10:21)
[2023-01-29] MEDS: PRENATAL VITAMINS W/ FOLIC ACID TABLET (FP) PO SCH (10:21)
[2023-01-29] MEDS: SULFAMETHOXAZOLE/TRIMETHOPRIM 800MG/160MG D.S. TABLET PO SCH (10:21)
[2023-01-29] MEDS: ABACAVIR/DOLUTEGRAVIR/LAMIVUDI (TRIUMEQ) TABLET PO SCH (10:22)
[2023-01-30] MEDS ORDERED: LORazepam 0.5 MG TABLET PO PRN
[2023-01-30] MEDS ORDERED: LORazepam 0.5 MG TABLET PO SCH (05:00)
[2023-01-31] MEDS ORDERED: LORazepam 0.5 MG TABLET PO ONE (05:00)
== END 2023-01-29 11:12 | disposition left against medical advice (07) | DRG 770 ==
LOC: YASAS 10:47 → Y3N 13:14
PROVIDERS: ADMIT Allergy & Immunology; ATTEND Surgery
PROC: HZ2ZZZZ Detoxification Services for Substance Abuse Treatment (ICD-10-PCS; principal; 2023-01-27)
DX: F10.230 Alcohol dependence with withdrawal, uncomplicated (principal); F14.20 Cocaine dependence, uncomplicated; F12.10 Cannabis abuse, uncomplicated; F17.210 Nicotine dependence, cigarettes, uncomplicated; F19.280 Other psychoactive substance dependence with psychoactive substance-induced anxiety disorder; F32.A Depression, unspecified; F64.0 Transsexualism; D50.9 Iron deficiency anemia, unspecified; B20 Human immunodeficiency virus [HIV] disease; B37.0 Candidal stomatitis; R63.4 Abnormal weight loss; Z68.1 Body mass index [BMI] 19.9 or less, adult; Z79.899 Other long term (current) drug therapy; Z86.11 Personal history of tuberculosis; Z86.19 Personal history of other infectious and parasitic diseases
CPT/HCPCS: 36415; 80053; 81003; 85027; 86593; 86780; 87635; 87811

== ENCOUNTER 2023-02-27 11:21 | Inpatient (IN) | payer OTHER ==
[2023-02-27 11:48] VITALS: BMI 19.0
[2023-02-27] MEDS ORDERED: LOPERAMIDE HCL 2 MG CAPSULE PO PRN (14:08)
[2023-02-27] MEDS ORDERED: IBUPROFEN 600 MG TABLET (FP) PO PRN (14:08)
[2023-02-27] MEDS ORDERED: IBUPROFEN 400 MG TABLET (FP) PO PRN (14:08)
[2023-02-27] MEDS ORDERED: MAG HYDROX/AL HYDROX/SIMETH 30 ML UNIT-DOSE CUP PO PRN (14:08)
[2023-02-27] MEDS ORDERED: BISMUTH SUBSALICYLATE 524 MG/30 ML PO PRN (14:08)
[2023-02-27] MEDS ORDERED: NALOXONE HCL (KLOXXADO) 8 MG SPRAY NS PRN (14:08)
[2023-02-27] MEDS ORDERED: ACETAMINOPHEN 325 MG TABLET (FP) PO PRN (14:08)
[2023-02-27] MEDS ORDERED: BENZOCAINE/MENTHOL (CHLORASEPTIC ) LOZENGE MM PRN (14:08)
[2023-02-27] MEDS ORDERED: DICYCLOMINE HCL 10 MG CAPSULE PO PRN (14:08)
[2023-02-27] MEDS ORDERED: chlordiazePOXIDE HCL 25 MG CAPSULE PO PRN (14:08)
[2023-02-27] MEDS ORDERED: MAGNESIUM HYDROX 2400MG/30ML ORAL SUSPENSION 30 ML CUP PO PRN (14:08)
[2023-02-27] MEDS ORDERED: METHOCARBAMOL 500 MG TABLET PO PRN (14:08)
[2023-02-27] MEDS ORDERED: BENZONATATE 200 MG CAPSULE PO PRN (14:08)
[2023-02-27] MEDS ORDERED: ONDANSETRON *ODT* 4 MG TABLET SL PRN (14:08)
[2023-02-27] MEDS ORDERED: guaiFENesin 600 MG TABLET.ER (FP) PO PRN (14:08)
[2023-02-27] MEDS ORDERED: POLYETHYLENE GLYCOL (HEALTHYLAX) 3350 17 GM PACKET PO PRN (14:08)
[2023-02-27] MEDS ORDERED: NALOXONE HCL 0.4 MG/ML VIAL IM PRN (14:08)
[2023-02-27] MEDS ORDERED: ALBUTEROL SO4 HFA INHALER IH PRN (14:11)
[2023-02-27] MEDS ORDERED: NICOTINE 14 MG/24 HOURS TOPICAL PATCH TD ONE (15:27)
[2023-02-27] MEDS: NICOTINE 14 MG/24 HOURS TOPICAL PATCH TD SCH (15:29)
[2023-02-27] MEDS: chlordiazePOXIDE HCL 25 MG CAPSULE PO SCH ×2 (17:01→22:05)
[2023-02-27] MEDS: CLOTRIMAZOLE 10 MG TROCHE PO SCH ×2 (18:18→22:04)
[2023-02-27] MEDS: MELATONIN 5 MG TABLETS PO SCH (22:04)
[2023-02-27] MEDS: THIAMINE HCL 100 MG TABLET (FP) PO SCH (22:05)
[2023-02-27] MEDS: traZODone HCL 50 MG TABLET (FP) PO PRN (22:06)
[2023-02-28] MEDS: chlordiazePOXIDE HCL 25 MG CAPSULE PO SCH ×4 (05:19→23:38)
[2023-02-28] MEDS: CLOTRIMAZOLE 10 MG TROCHE PO SCH ×5 (05:20→22:25)
[2023-02-28] MEDS: SULFAMETHOXAZOLE/TRIMETHOPRIM 800MG/160MG D.S. TABLET PO SCH (10:17)
[2023-02-28] MEDS: PRENATAL VITAMINS W/ FOLIC ACID TABLET (FP) PO SCH (10:17)
[2023-02-28] MEDS: NICOTINE 14 MG/24 HOURS TOPICAL PATCH TD SCH (10:18)
[2023-02-28 10:58] LABS: HEMATOCRIT 34.3 % (35.4-49); HEMOGLOBIN 11.7 GM/dL (11.7-16.9); MCH 31.7 pg (25.7-33.7); MEAN CELL VOLUME 93.1 fl (80-96); PLATELET COUNT 96 10^3/uL (134-434); RBC 3.69 M/mm3 (4.00-5.60); RDW 14.8 % (11.9-15.9); WHITE BLOOD COUNT 2.8 K/mm3 (4.0-10.0)
[2023-02-28 11:03] LABS: POTASSIUM 3.5 mmol/L (3.5-5.1)
[2023-02-28 11:07] LABS: ALBUMIN 2.8 g/dl (3.4-5.0); BLOOD UREA NITROGEN 12.6 mg/dL (7-18)
[2023-02-28 11:10] LABS: CREATININE 0.8 mg/dL (0.55-1.3)
[2023-02-28 11:11] LABS: BILIRUBIN,TOTAL 0.5 mg/dL (0.2-1)
[2023-02-28 11:12] LABS: TOT PROT 8.5 g/dl (6.4-8.2)
[2023-02-28] MEDS: ABACAVIR/DOLUTEGRAVIR/LAMIVUDI (TRIUMEQ) TABLET PO SCH (11:55)
[2023-02-28] MEDS: THIAMINE HCL 100 MG TABLET (FP) PO SCH (22:25)
[2023-02-28] MEDS: traZODone HCL 50 MG TABLET (FP) PO PRN (22:27)
[2023-02-28] MEDS: MELATONIN 5 MG TABLETS PO SCH (22:28)
[2023-03-01] MEDS: CLOTRIMAZOLE 10 MG TROCHE PO SCH ×5 (05:34→22:21)
[2023-03-01] MEDS: chlordiazePOXIDE HCL 25 MG CAPSULE PO SCH ×4 (05:34→22:22)
[2023-03-01] MEDS: ABACAVIR/DOLUTEGRAVIR/LAMIVUDI (TRIUMEQ) TABLET PO SCH (10:03)
[2023-03-01] MEDS: NICOTINE 14 MG/24 HOURS TOPICAL PATCH TD SCH (10:03)
[2023-03-01] MEDS: PRENATAL VITAMINS W/ FOLIC ACID TABLET (FP) PO SCH (10:03)
[2023-03-01] MEDS: SULFAMETHOXAZOLE/TRIMETHOPRIM 800MG/160MG D.S. TABLET PO SCH (10:03)
[2023-03-01] MEDS: THIAMINE HCL 100 MG TABLET (FP) PO SCH (22:21)
[2023-03-01] MEDS: MELATONIN 5 MG TABLETS PO SCH (22:51)
[2023-03-02] MEDS ORDERED: chlordiazePOXIDE HCL 10 MG CAPSULE PO PRN
[2023-03-02] MEDS: chlordiazePOXIDE HCL 10 MG CAPSULE PO SCH ×4 (05:47→22:21)
[2023-03-02] MEDS: CLOTRIMAZOLE 10 MG TROCHE PO SCH ×5 (05:47→22:22)
[2023-03-02] MEDS: SULFAMETHOXAZOLE/TRIMETHOPRIM 800MG/160MG D.S. TABLET PO SCH (10:18)
[2023-03-02] MEDS: PRENATAL VITAMINS W/ FOLIC ACID TABLET (FP) PO SCH (10:18)
[2023-03-02] MEDS: NICOTINE 14 MG/24 HOURS TOPICAL PATCH TD SCH (10:19)
[2023-03-02] MEDS: ABACAVIR/DOLUTEGRAVIR/LAMIVUDI (TRIUMEQ) TABLET PO SCH (10:20)
[2023-03-02] MEDS: traZODone HCL 50 MG TABLET (FP) PO PRN (22:21)
[2023-03-02] MEDS: THIAMINE HCL 100 MG TABLET (FP) PO SCH (22:21)
[2023-03-02] MEDS: MELATONIN 5 MG TABLETS PO SCH (22:22)
[2023-03-03] MEDS ORDERED: chlordiazePOXIDE HCL 10 MG CAPSULE PO SCH (05:00)
[2023-03-03] MEDS: CLOTRIMAZOLE 10 MG TROCHE PO SCH ×2 (05:25→09:40)
[2023-03-03 08:55] VITALS: BP 101/70; PULSE 95; RESP 18; TEMP 97.5
[2023-03-03] MEDS: SULFAMETHOXAZOLE/TRIMETHOPRIM 800MG/160MG D.S. TABLET PO SCH (09:39)
[2023-03-03] MEDS: PRENATAL VITAMINS W/ FOLIC ACID TABLET (FP) PO SCH (09:39)
[2023-03-03] MEDS: NICOTINE 14 MG/24 HOURS TOPICAL PATCH TD SCH (09:40)
[2023-03-03] MEDS: ABACAVIR/DOLUTEGRAVIR/LAMIVUDI (TRIUMEQ) TABLET PO SCH (09:44)
[2023-03-04] MEDS ORDERED: chlordiazePOXIDE HCL 10 MG CAPSULE PO ONE (05:00)
== END 2023-03-03 11:35 | disposition home or self-care (01) | DRG 774 ==
LOC: YASAS 11:21 → Y6N 15:28
PROVIDERS: ADMIT Allergy & Immunology; ATTEND Surgery
PROC: HZ2ZZZZ Detoxification Services for Substance Abuse Treatment (ICD-10-PCS; principal; 2023-02-27)
DX: F10.230 Alcohol dependence with withdrawal, uncomplicated (principal); F14.20 Cocaine dependence, uncomplicated; F12.20 Cannabis dependence, uncomplicated; F17.213 Nicotine dependence, cigarettes, with withdrawal; F19.982 Other psychoactive substance use, unspecified with psychoactive substance-induced sleep disorder; F19.980 Other psychoactive substance use, unspecified with psychoactive substance-induced anxiety disorder; I10 Essential (primary) hypertension; J44.9 Chronic obstructive pulmonary disease, unspecified; B20 Human immunodeficiency virus [HIV] disease; D72.819 Decreased white blood cell count, unspecified; Z86.19 Personal history of other infectious and parasitic diseases; Z86.11 Personal history of tuberculosis; Z56.0 Unemployment, unspecified
CPT/HCPCS: 36415; 80053; 82746; 85027; 86593; 86780; 87635; 87811

== ENCOUNTER 2024-01-08 11:17 | Inpatient (IN) | payer OTHER ==
[2024-01-08 12:00] VITALS: BMI 17.2
[2024-01-08] MEDS ORDERED: MAG HYDROX/AL HYDROX/SIMETH 30 ML UNIT-DOSE CUP PO PRN (14:12)
[2024-01-08] MEDS ORDERED: POLYETHYLENE GLYCOL (HEALTHYLAX) 3350 17 GM PACKET PO PRN (14:12)
[2024-01-08] MEDS ORDERED: LORazepam 1 MG TABLET PO PRN (14:12)
[2024-01-08] MEDS ORDERED: METHOCARBAMOL 500 MG TABLET PO PRN (14:12)
[2024-01-08] MEDS ORDERED: DICYCLOMINE HCL 10 MG CAPSULE PO PRN (14:12)
[2024-01-08] MEDS ORDERED: IBUPROFEN 400 MG TABLET (FP) PO PRN (14:12)
[2024-01-08] MEDS ORDERED: LOPERAMIDE HCL 2 MG CAPSULE PO PRN (14:12)
[2024-01-08] MEDS ORDERED: MAGNESIUM HYDROX 2400MG/30ML ORAL SUSPENSION 30 ML CUP PO PRN (14:12)
[2024-01-08] MEDS ORDERED: NALOXONE (NARCAN) HCL 4 MG/0.1 ML SPRAY NS PRN (14:12)
[2024-01-08] MEDS ORDERED: guaiFENesin 600 MG TABLET.ER (FP) PO PRN (14:12)
[2024-01-08] MEDS ORDERED: ACETAMINOPHEN 325 MG TABLET (FP) PO PRN (14:12)
[2024-01-08] MEDS ORDERED: BENZOCAINE/MENTHOL (CHLORASEPTIC ) LOZENGE MM PRN (14:12)
[2024-01-08] MEDS ORDERED: IBUPROFEN 600 MG TABLET (FP) PO PRN (14:12)
[2024-01-08] MEDS ORDERED: ONDANSETRON *ODT* 4 MG TABLET SL PRN (14:12)
[2024-01-08] MEDS ORDERED: BISMUTH SUBSALICYLATE 524 MG/30 ML PO PRN (14:12)
[2024-01-08] MEDS ORDERED: BENZONATATE 200 MG CAPSULE PO PRN (14:12)
[2024-01-08] MEDS ORDERED: NALOXONE HCL 0.4 MG/ML VIAL IM PRN (14:12)
[2024-01-08] MEDS ORDERED: ALBUTEROL SO4 HFA INHALER IH PRN (14:17)
[2024-01-08] MEDS ORDERED: NICOTINE 21 MG/24 HOURS TOPICAL PATCH ONE (15:31)
[2024-01-08] MEDS: FLUCONAZOLE 100 MG TABLET (UD) PO SCH (15:33)
[2024-01-08] MEDS: ABACAVIR/DOLUTEGRAVIR/LAMIVUDI (TRIUMEQ) TABLET PO SCH (15:33)
[2024-01-08] MEDS: NICOTINE 21 MG/24 HOURS TOPICAL PATCH TD SCH (15:33)
[2024-01-08] MEDS: LORazepam 2 MG TABLET PO SCH (17:08)
[2024-01-08] MEDS: THIAMINE 100 MG TABLET PO SCH (22:19)
[2024-01-08] MEDS: MELATONIN 5 MG TABLETS PO SCH (22:19)
[2024-01-08] MEDS: QUEtiapine FUMARATE 100 MG TABLET (FP) PO ONE (22:19)
[2024-01-08] MEDS: traZODone HCL 100 MG TABLET (FP) PO ONE (22:19)
[2024-01-09] MEDS: SULFAMETHOXAZOLE/TRIMETHOPRIM 800MG/160MG D.S. TABLET PO SCH (10:37)
[2024-01-09] MEDS: PRENATAL VITAMINS W/ FOLIC ACID TABLET (FP) PO SCH (10:39)
[2024-01-09 11:58] LABS: CHLORIDE 107 mmol/L (98-107); SODIUM 140 mmol/L (136-145)
[2024-01-09 12:04] LABS: CALCIUM 8.6 mg/dL (8.5-10.1)
[2024-01-09 12:05] LABS: ALBUMIN 2.9 g/dl (3.4-5.0); ANION GAP 7 mmol/L (4-13); BLOOD UREA NITROGEN 8.5 mg/dL (7-18); CO2 26 mmol/L (21-32); GLUCOSE,RANDOM 81 mg/dL (74-106)
[2024-01-09 12:07] LABS: CREATININE 0.7 mg/dL (0.55-1.3); SGPT/ALT 24 U/L (13-61)
[2024-01-09 12:08] LABS: SGOT/AST 58 U/L (15-37)
[2024-01-09 12:09] LABS: BILIRUBIN,TOTAL 0.9 mg/dL (0.2-1); TOT PROT 8.3 g/dl (6.4-8.2)
[2024-01-09 12:10] LABS: ALK PHOS 96 U/L (45-117)
[2024-01-09 12:13] LABS: HEMATOCRIT 31.2 % (35.4-49); HEMOGLOBIN 10.8 GM/dL (11.7-16.9); MCH 31.6 pg (25.7-33.7); MCHC 34.8 g/dl (32.0-35.9); PLATELET COUNT 274 10^3/uL (134-434); RBC 3.43 M/mm3 (4.00-5.60); RDW 16.3 % (11.9-15.9); WHITE BLOOD COUNT 2.9 K/mm3 (4.0-10.0)
[2024-01-09] MEDS: QUEtiapine FUMARATE 100 MG TABLET (FP) PO SCH (22:20)
[2024-01-09] MEDS: traZODone HCL 50 MG TABLET (FP) PO SCH (22:20)
[2024-01-10] MEDS: LORazepam 1 MG TABLET PO SCH (05:53)
[2024-01-10] MEDS: LACTULOSE 20 GM/30 ML UDC (FOR ORAL USE ONLY) PO SCH (21:32)
[2024-01-11] MEDS ORDERED: LORazepam 0.5 MG TABLET PO PRN
[2024-01-11] MEDS: LORazepam 0.5 MG TABLET PO SCH (06:24)
[2024-01-12] MEDS: LORazepam 0.5 MG TABLET PO ONE (05:32)
[2024-01-12 12:15] VITALS: BP 92/61; PULSE 78; RESP 18; TEMP 97.6
== END 2024-01-12 09:20 | disposition home or self-care (01) | DRG 774 ==
LOC: YASAS 11:17 → Y6N 15:37
PROVIDERS: ADMIT Allergy & Immunology; ATTEND Surgery
PROC: HZ2ZZZZ Detoxification Services for Substance Abuse Treatment (ICD-10-PCS; principal; 2024-01-08)
DX: F10.230 Alcohol dependence with withdrawal, uncomplicated (principal); F14.20 Cocaine dependence, uncomplicated; F12.20 Cannabis dependence, uncomplicated; F17.210 Nicotine dependence, cigarettes, uncomplicated; F25.1 Schizoaffective disorder, depressive type; B20 Human immunodeficiency virus [HIV] disease; Z79.899 Other long term (current) drug therapy; J45.20 Mild intermittent asthma, uncomplicated; R79.89 Other specified abnormal findings of blood chemistry; R63.4 Abnormal weight loss; Z68.1 Body mass index [BMI] 19.9 or less, adult; M17.0 Bilateral primary osteoarthritis of knee; M16.11 Unilateral primary osteoarthritis, right hip; K29.20 Alcoholic gastritis without bleeding; Z62.810 Personal history of physical and sexual abuse in childhood; Z91.410 Personal history of adult physical and sexual abuse; Z63.8 Other specified problems related to primary support group; Z63.0 Problems in relationship with spouse or partner; Z86.19 Personal history of other infectious and parasitic diseases; Z86.11 Personal history of tuberculosis
CPT/HCPCS: 36415; 71046-TC-FY; 80053; 80305; 80307; 82140; 85027; 86593; 86780; 93005; 93010

== ENCOUNTER 2024-08-23 11:42 | Inpatient (IN) | payer OTHER ==
[2024-08-23 12:07] VITALS: BMI 18.6
[2024-08-23] MEDS ORDERED: IBUPROFEN 400 MG TABLET (FP) PO PRN (12:28)
[2024-08-23] MEDS ORDERED: guaiFENesin 600 MG TABLET.ER (FP) PO PRN (12:28)
[2024-08-23] MEDS ORDERED: ACETAMINOPHEN 325 MG TABLET (FP) PO PRN (12:28)
[2024-08-23] MEDS ORDERED: hydrOXYzine PAMOATE 25 MG CAPSULE (FP) PO PRN (12:28)
[2024-08-23] MEDS ORDERED: ONDANSETRON *ODT* 4 MG TABLET SL PRN (12:28)
[2024-08-23] MEDS ORDERED: IBUPROFEN 600 MG TABLET (FP) PO PRN (12:28)
[2024-08-23] MEDS ORDERED: MAG HYDROX/AL HYDROX/SIMETH 30 ML UNIT-DOSE CUP PO PRN (12:28)
[2024-08-23] MEDS ORDERED: LOPERAMIDE HCL 2 MG CAPSULE PO PRN (12:28)
[2024-08-23] MEDS ORDERED: BENZOCAINE/MENTHOL (CHLORASEPTIC ) LOZENGE MM PRN (12:28)
[2024-08-23] MEDS ORDERED: MAGNESIUM HYDROX 2400MG/30ML ORAL SUSPENSION 30 ML CUP PO PRN (12:28)
[2024-08-23] MEDS ORDERED: NICOTINE POLACRILEX 2 MG LOZENGE BC PRN (12:28)
[2024-08-23] MEDS ORDERED: METHOCARBAMOL 500 MG TABLET PO PRN (12:28)
[2024-08-23] MEDS ORDERED: BISMUTH SUBSALICYLATE 524 MG/30 ML PO PRN (12:28)
[2024-08-23] MEDS ORDERED: POLYETHYLENE GLYCOL (HEALTHYLAX) 3350 17 GM PACKET PO PRN (12:28)
[2024-08-23] MEDS ORDERED: NALOXONE (NARCAN) HCL 4 MG/0.1 ML SPRAY NS PRN (12:28)
[2024-08-23] MEDS ORDERED: BENZONATATE 200 MG CAPSULE PO PRN (12:28)
[2024-08-23] MEDS ORDERED: NICOTINE POLACRILEX 2 MG GUM BUC PRN (12:28)
[2024-08-23] MEDS ORDERED: ALBUTEROL SO4 HFA INHALER IH PRN (13:40)
[2024-08-23] MEDS: DICYCLOMINE HCL 10 MG CAPSULE PO PRN (17:59)
[2024-08-23] MEDS: FLUCONAZOLE 100 MG TABLET (UD) PO SCH (18:15)
[2024-08-23] MEDS: THIAMINE 100 MG TABLET PO SCH (21:55)
[2024-08-23] MEDS: valACYclovir HCL 500 MG TABLET (FP) PO SCH (21:56)
[2024-08-23] MEDS: MELATONIN 5 MG TABLETS PO SCH (21:56)
[2024-08-24 09:13] LABS: HEMATOCRIT 35.2 % (35.4-49); HEMOGLOBIN 11.3 GM/dL (11.7-16.9); MCH 29.9 pg (25.7-33.7); MCHC 32.1 g/dl (32.0-35.9); MEAN CELL VOLUME 93.1 fl (80-96); MEAN PLT VOLUME 7.7 fl (7.5-11.1); PLATELET COUNT 139 10^3/uL (134-434); RBC 3.78 M/mm3 (4.00-5.60); RDW 15.6 % (11.9-15.9); WHITE BLOOD COUNT 3.1 K/mm3 (4.0-10.0)
[2024-08-24 09:19] LABS: POTASSIUM 4.1 mmol/L (3.5-5.1)
[2024-08-24 09:39] LABS: ALBUMIN 3.1 g/dl (3.4-5.0); BLOOD UREA NITROGEN 9.6 mg/dL (7-18)
[2024-08-24 09:40] LABS: CALCIUM 8.7 mg/dL (8.5-10.1)
[2024-08-24 09:42] LABS: BILIRUBIN,TOTAL 0.5 mg/dL (0.2-1); CREATININE 0.7 mg/dL (0.55-1.3); TOT PROT 8.1 g/dl (6.4-8.2)
[2024-08-24] MEDS: PANTOPRAZOLE 40 MG TABLET PO SCH (10:33)
[2024-08-24] MEDS: NALTREXONE HCL 50 MG TABLET PO SCH (10:33)
[2024-08-24] MEDS: FOLIC ACID 1 MG TABLET (FP) PO SCH (10:34)
[2024-08-24] MEDS: PRENATAL VITAMINS W/ FOLIC ACID TABLET (FP) PO SCH (10:34)
[2024-08-24] MEDS: ABACAVIR/DOLUTEGRAVIR/LAMIVUDI (TRIUMEQ) TABLET PO SCH (10:34)
[2024-08-24] MEDS: SULFAMETHOXAZOLE/TRIMETHOPRIM 800MG/160MG D.S. TABLET PO SCH (10:34)
[2024-08-24] MEDS ORDERED: chlordiazePOXIDE HCL 25 MG CAPSULE PO PRN (10:43)
[2024-08-24] MEDS: chlordiazePOXIDE HCL 25 MG CAPSULE PO SCH (11:02)
[2024-08-24] MEDS: FLUCONAZOLE 100 MG TABLET (UD) PO ONE (15:21)
[2024-08-24 16:40] VITALS: RESP 16
[2024-08-25] MEDS: FLUCONAZOLE 100 MG TABLET (UD) PO SCH (09:59)
[2024-08-25 13:28] VITALS: BP 104/79; PULSE 89; TEMP 98.1
[2024-08-26] MEDS ORDERED: chlordiazePOXIDE HCL 25 MG CAPSULE PO SCH (05:00)
[2024-08-27] MEDS ORDERED: chlordiazePOXIDE HCL 10 MG CAPSULE PO PRN
[2024-08-27] MEDS ORDERED: chlordiazePOXIDE HCL 10 MG CAPSULE PO SCH (05:00)
[2024-08-28] MEDS ORDERED: chlordiazePOXIDE HCL 10 MG CAPSULE PO SCH (05:00)
[2024-08-29] MEDS ORDERED: chlordiazePOXIDE HCL 10 MG CAPSULE PO ONE (05:00)
== END 2024-08-25 15:36 | disposition left against medical advice (07) | DRG 770 ==
LOC: YASAS 11:42 → Y3N 13:48
PROVIDERS: ADMIT Allergy & Immunology; ATTEND Allergy & Immunology
PROC: HZ2ZZZZ Detoxification Services for Substance Abuse Treatment (ICD-10-PCS; principal; 2024-08-23)
DX: F10.230 Alcohol dependence with withdrawal, uncomplicated (principal); F14.20 Cocaine dependence, uncomplicated; F12.20 Cannabis dependence, uncomplicated; F17.210 Nicotine dependence, cigarettes, uncomplicated; F32.A Depression, unspecified; F41.9 Anxiety disorder, unspecified; B20 Human immunodeficiency virus [HIV] disease; G62.9 Polyneuropathy, unspecified; J44.9 Chronic obstructive pulmonary disease, unspecified; K21.9 Gastro-esophageal reflux disease without esophagitis; M10.9 Gout, unspecified; M16.11 Unilateral primary osteoarthritis, right hip; M17.11 Unilateral primary osteoarthritis, right knee; Z86.11 Personal history of tuberculosis; Z86.19 Personal history of other infectious and parasitic diseases
CPT/HCPCS: 36415; 80053; 80305; 80307; 85027; 86593; 86780; 93005; 93010

== ENCOUNTER 2024-09-23 10:40 | Inpatient (IN) | payer OTHER ==
[2024-09-23 11:19] VITALS: BMI 18.1
[2024-09-23] MEDS ORDERED: NICOTINE POLACRILEX 2 MG GUM BUC PRN (11:57)
[2024-09-23] MEDS ORDERED: MAGNESIUM HYDROX 2400MG/30ML ORAL SUSPENSION 30 ML CUP PO PRN (11:57)
[2024-09-23] MEDS ORDERED: BENZOCAINE/MENTHOL (CHLORASEPTIC ) LOZENGE MM PRN (11:57)
[2024-09-23] MEDS ORDERED: ACETAMINOPHEN 325 MG TABLET (FP) PO PRN (11:57)
[2024-09-23] MEDS ORDERED: DICYCLOMINE HCL 10 MG CAPSULE PO PRN (11:57)
[2024-09-23] MEDS ORDERED: BENZONATATE 200 MG CAPSULE PO PRN (11:57)
[2024-09-23] MEDS ORDERED: POLYETHYLENE GLYCOL (HEALTHYLAX) 3350 17 GM PACKET PO PRN (11:57)
[2024-09-23] MEDS ORDERED: IBUPROFEN 400 MG TABLET (FP) PO PRN (11:57)
[2024-09-23] MEDS ORDERED: P-EPHED 60MG/TRIPROLIDI 2.5MG TABLET PO PRN (11:57)
[2024-09-23] MEDS ORDERED: NICOTINE POLACRILEX 2 MG LOZENGE BC PRN (11:57)
[2024-09-23] MEDS ORDERED: IBUPROFEN 600 MG TABLET (FP) PO PRN (11:57)
[2024-09-23] MEDS ORDERED: guaiFENesin 600 MG TABLET.ER (FP) PO PRN (11:57)
[2024-09-23] MEDS ORDERED: METHOCARBAMOL 500 MG TABLET PO PRN (11:57)
[2024-09-23] MEDS ORDERED: NALOXONE (NARCAN) HCL 4 MG/0.1 ML SPRAY NS PRN (11:57)
[2024-09-23] MEDS ORDERED: BISMUTH SUBSALICYLATE 524 MG/30 ML PO PRN (11:57)
[2024-09-23] MEDS ORDERED: LOPERAMIDE HCL 2 MG CAPSULE PO PRN (11:57)
[2024-09-23] MEDS ORDERED: ONDANSETRON *ODT* 4 MG TABLET SL PRN (11:57)
[2024-09-23] MEDS ORDERED: MAG HYDROX/AL HYDROX/SIMETH 30 ML UNIT-DOSE CUP PO PRN (11:57)
[2024-09-23] MEDS ORDERED: LACTULOSE 20 GM/30 ML UDC (FOR ORAL USE ONLY) PO PRN (15:08)
[2024-09-23] MEDS ORDERED: ALBUTEROL SO4 HFA INHALER IH PRN (15:08)
[2024-09-23] MEDS: propRANOLol HCL 10 MG TABLET PO ONE (16:00)
[2024-09-23] MEDS: FLUCONAZOLE 100 MG TABLET (UD) PO SCH (17:25)
[2024-09-23] MEDS: GABAPENTIN 300 MG CAPSULE PO SCH (22:32)
[2024-09-23] MEDS: valACYclovir HCL 500 MG TABLET (FP) PO SCH (22:32)
[2024-09-23] MEDS: THIAMINE 100 MG TABLET PO SCH (22:32)
[2024-09-23] MEDS: MELATONIN 5 MG TABLETS PO SCH (22:32)
[2024-09-24] MEDS: ABACAVIR/DOLUTEGRAVIR/LAMIVUDI (TRIUMEQ) TABLET PO SCH (07:01)
[2024-09-24] MEDS: FOLIC ACID 1 MG TABLET (FP) PO SCH (09:49)
[2024-09-24] MEDS: PANTOPRAZOLE 40 MG TABLET PO SCH (09:49)
[2024-09-24] MEDS: SULFAMETHOXAZOLE/TRIMETHOPRIM 800MG/160MG D.S. TABLET PO SCH (09:50)
[2024-09-24] MEDS: PRENATAL VITAMINS W/ FOLIC ACID TABLET (FP) PO SCH (09:50)
[2024-09-24] MEDS ORDERED: THIAMINE 100 MG TABLET PO SCH (10:00)
[2024-09-24 11:59] LABS: HEMATOCRIT 34.1 % (35.4-49); HEMOGLOBIN 11.3 GM/dL (11.7-16.9); MCH 29.8 pg (25.7-33.7); MCHC 33.1 g/dl (32.0-35.9); MEAN CELL VOLUME 89.8 fl (80-96); MEAN PLT VOLUME 7.9 fl (7.5-11.1); PLATELET COUNT 156 10^3/uL (134-434); RDW 15.7 % (11.9-15.9); WHITE BLOOD COUNT 2.6 K/mm3 (4.0-10.0)
[2024-09-24 12:02] LABS: POTASSIUM 3.8 mmol/L (3.5-5.1)
[2024-09-24 12:07] LABS: ALBUMIN 3.1 g/dl (3.4-5.0); BLOOD UREA NITROGEN 9.6 mg/dL (7-18); CALCIUM 8.2 mg/dL (8.5-10.1)
[2024-09-24 12:11] LABS: CREATININE 0.7 mg/dL (0.55-1.3)
[2024-09-24 12:12] LABS: BILIRUBIN,TOTAL 0.6 mg/dL (0.2-1); TOT PROT 8.1 g/dl (6.4-8.2)
[2024-09-24] MEDS ORDERED: LORazepam 1 MG TABLET PO PRN (13:58)
[2024-09-24] MEDS: FLUCONAZOLE 100 MG TABLET (UD) PO ONE (14:47)
[2024-09-24] MEDS: LORazepam 2 MG TABLET PO SCH (17:19)
[2024-09-24] MEDS: QUEtiapine FUMARATE 100 MG TABLET (FP) PO SCH (22:26)
[2024-09-25] MEDS ORDERED: FLUCONAZOLE 100 MG TABLET (UD) PO SCH (10:00)
[2024-09-25] MEDS ORDERED: PATIENT'S OWN MEDICATION (NON-FORMULARY) (Spironolactone [Spironolactone] 50 MG Tablet) PO SCH (22:00)
[2024-09-25] MEDS ORDERED: SPIRONOLACTONE 25 MG TABLET PO SCH (22:00)
[2024-09-25] MEDS: SPIRONOLACTONE 25 MG TABLET PO SCH (22:33)
[2024-09-26] MEDS: LORazepam 1 MG TABLET PO SCH (05:58)
[2024-09-26] MEDS: FLUCONAZOLE 50 MG TABLET PO ONE (12:49)
[2024-09-27] MEDS ORDERED: LORazepam 0.5 MG TABLET PO PRN
[2024-09-27] MEDS: LORazepam 0.5 MG TABLET PO SCH (05:44)
[2024-09-28] MEDS: LORazepam 0.5 MG TABLET PO ONE (05:55)
[2024-09-28 06:57] VITALS: RESP 16
[2024-09-28 08:57] VITALS: BP 98/68; PULSE 96; TEMP 98.4
== END 2024-09-28 12:16 | disposition other institution (70) | DRG 774 ==
LOC: YASAS 10:40 → Y6N 14:36
PROVIDERS: ADMIT Neuromusculoskeletal Medicine & OMM; ATTEND Allergy & Immunology
PROC: HZ2ZZZZ Detoxification Services for Substance Abuse Treatment (ICD-10-PCS; principal; 2024-09-23)
DX: F10.230 Alcohol dependence with withdrawal, uncomplicated (principal); F14.20 Cocaine dependence, uncomplicated; F12.20 Cannabis dependence, uncomplicated; F17.210 Nicotine dependence, cigarettes, uncomplicated; F32.A Depression, unspecified; F41.9 Anxiety disorder, unspecified; B20 Human immunodeficiency virus [HIV] disease; G99.0 Autonomic neuropathy in diseases classified elsewhere; B37.0 Candidal stomatitis; E88.A Wasting disease (syndrome) due to underlying condition; D72.819 Decreased white blood cell count, unspecified; Z79.899 Other long term (current) drug therapy; Z68.1 Body mass index [BMI] 19.9 or less, adult; M16.11 Unilateral primary osteoarthritis, right hip; M17.11 Unilateral primary osteoarthritis, right knee; R79.89 Other specified abnormal findings of blood chemistry; Z62.810 Personal history of physical and sexual abuse in childhood; Z91.410 Personal history of adult physical and sexual abuse; Z63.0 Problems in relationship with spouse or partner; Z63.8 Other specified problems related to primary support group
CPT/HCPCS: 36415; 80053; 80305; 80307; 85027; 87811

== ENCOUNTER 2024-09-28 11:38 | Inpatient (IN) | payer OTHER ==
[2024-09-28] MEDS ORDERED: NICOTINE POLACRILEX 4 MG LOZENGE BC PRN (13:20)
[2024-09-28] MEDS ORDERED: LOPERAMIDE HCL 2 MG CAPSULE PO PRN (13:20)
[2024-09-28] MEDS ORDERED: ACETAMINOPHEN 325 MG TABLET (FP) PO PRN (13:20)
[2024-09-28] MEDS ORDERED: IBUPROFEN 400 MG TABLET (FP) PO PRN (13:20)
[2024-09-28] MEDS ORDERED: NICOTINE POLACRILEX 4 MG GUM BUC PRN (13:20)
[2024-09-28] MEDS ORDERED: hydrOXYzine PAMOATE 25 MG CAPSULE (FP) PO PRN (13:20)
[2024-09-28] MEDS ORDERED: NALOXONE HCL 0.4 MG/ML VIAL IVPUSH PRN (13:20)
[2024-09-28] MEDS ORDERED: NALOXONE (NARCAN) HCL 4 MG/0.1 ML SPRAY NS PRN (13:20)
[2024-09-28] MEDS ORDERED: BENZONATATE 200 MG CAPSULE PO PRN (13:20)
[2024-09-28] MEDS ORDERED: guaiFENesin 600 MG TABLET.ER (FP) PO PRN (13:20)
[2024-09-28] MEDS ORDERED: METHOCARBAMOL 500 MG TABLET PO PRN (13:20)
[2024-09-28] MEDS ORDERED: BENZOCAINE/MENTHOL (CHLORASEPTIC ) LOZENGE MM PRN (13:20)
[2024-09-28] MEDS ORDERED: IBUPROFEN 600 MG TABLET (FP) PO PRN (13:20)
[2024-09-28] MEDS ORDERED: ALBUTEROL SO4 HFA INHALER IH PRN (13:23)
[2024-09-28] MEDS: GABAPENTIN 300 MG CAPSULE PO SCH (14:51)
[2024-09-28] MEDS: QUEtiapine FUMARATE 200 MG TABLET PO SCH (21:24)
[2024-09-28] MEDS: valACYclovir HCL 500 MG TABLET (FP) PO SCH (21:24)
[2024-09-28] MEDS: SPIRONOLACTONE 25 MG TABLET PO SCH (21:25)
[2024-09-28] MEDS: THIAMINE 100 MG TABLET PO SCH (21:25)
[2024-09-28] MEDS: MELATONIN 5 MG TABLETS PO SCH (21:26)
[2024-09-29] MEDS: ABACAVIR/DOLUTEGRAVIR/LAMIVUDI (TRIUMEQ) TABLET PO SCH (07:58)
[2024-09-29] MEDS: SULFAMETHOXAZOLE/TRIMETHOPRIM 800MG/160MG D.S. TABLET PO SCH (10:06)
[2024-09-29] MEDS: PANTOPRAZOLE 40 MG TABLET PO SCH (10:06)
[2024-09-29] MEDS: NICOTINE 14 MG/24 HOURS TOPICAL PATCH TD SCH (10:06)
[2024-09-29] MEDS: PRENATAL VITAMINS W/ FOLIC ACID TABLET (FP) PO SCH (10:07)
[2024-09-29 11:44] LABS: INR 0.97 (0.83-1.09); PROTHROMBIN TIME (PATIENT) 10.7 SEC (9.7-13.0)
[2024-09-29 11:45] LABS: HEMOGLOBIN 12.2 GM/dL (11.7-16.9); MCH 29.7 pg (25.7-33.7); MCHC 32.2 g/dl (32.0-35.9); MEAN CELL VOLUME 92.3 fl (80-96); MEAN PLT VOLUME 7.9 fl (7.5-11.1); PLATELET COUNT 200 10^3/uL (134-434); RBC 4.11 M/mm3 (4.00-5.60); RDW 15.9 % (11.9-15.9); WHITE BLOOD COUNT 3.9 K/mm3 (4.0-10.0)
[2024-09-29 12:18] LABS: ANISOCYTOSIS 0; MACROCYTOSIS 0
[2024-09-29 12:21] LABS: POTASSIUM 4.5 mmol/L (3.5-5.1)
[2024-09-29 12:28] LABS: CALCIUM 8.9 mg/dL (8.5-10.1)
[2024-09-29 12:29] LABS: ALBUMIN 3.4 g/dl (3.4-5.0); BLOOD UREA NITROGEN 11.6 mg/dL (7-18); MAGNESIUM 2.1 mg/dL (1.8-2.4)
[2024-09-29 12:32] LABS: CREATININE 0.9 mg/dL (0.55-1.3)
[2024-09-29 12:33] LABS: BILIRUBIN,TOTAL 0.4 mg/dL (0.2-1); TOT PROT 8.9 g/dl (6.4-8.2)
[2024-09-29] MEDS: ESTRADIOL 2 MG TABLET (NON-FORMULARY) PO SCH (22:42)
[2024-09-30] MEDS: QUEtiapine FUMARATE 100 MG TABLET (FP) PO SCH (21:36)
[2024-10-02] MEDS: ESTRADIOL VALERATE 100 MG/5 ML VIAL IM ONE (18:50)
[2024-10-02] MEDS: ESTRADIOL VALERATE 200 MG/5 ML IM ONE (19:19)
[2024-10-03] MEDS: MAGNESIUM HYDROX 2400MG/30ML ORAL SUSPENSION 30 ML CUP PO PRN (01:37)
[2024-10-03] MEDS: DOCUSATE SODIUM 100 MG CAPSULE (FP) PO PRN (18:42)
[2024-10-05] MEDS: MAG HYDROX/AL HYDROX/SIMETH 30 ML UNIT-DOSE CUP PO PRN (21:36)
[2024-10-06] MEDS: SPIRONOLACTONE 25 MG TABLET PO SCH (11:04)
[2024-10-07] MEDS: POLYETHYLENE GLYCOL (HEALTHYLAX) 3350 17 GM PACKET PO PRN (06:23)
[2024-10-09 07:02] VITALS: TEMP 97.3
[2024-10-09 09:06] VITALS: BP 128/84; PULSE 113; RESP 16
== END 2024-10-09 09:30 | disposition home or self-care (01) | DRG 772 ==
LOC: YASAS 11:38 → Y3E 11:39
PROVIDERS: ADMIT Psychiatry & Neurology Pain Medicine; ATTEND Psychiatry & Neurology Pain Medicine
PROC: HZ42ZZZ Group Counseling for Substance Abuse Treatment, Cognitive-Behavioral (ICD-10-PCS; principal; 2024-09-28)
DX: F14.20 Cocaine dependence, uncomplicated (principal); F10.20 Alcohol dependence, uncomplicated; F15.20 Other stimulant dependence, uncomplicated; F17.210 Nicotine dependence, cigarettes, uncomplicated; F25.1 Schizoaffective disorder, depressive type; F41.9 Anxiety disorder, unspecified; B20 Human immunodeficiency virus [HIV] disease; G62.9 Polyneuropathy, unspecified; J45.20 Mild intermittent asthma, uncomplicated; M16.11 Unilateral primary osteoarthritis, right hip; M17.11 Unilateral primary osteoarthritis, right knee; R63.4 Abnormal weight loss; Z68.1 Body mass index [BMI] 19.9 or less, adult; Z86.11 Personal history of tuberculosis; Z79.899 Other long term (current) drug therapy
CPT/HCPCS: 36415; 80053; 82140; 82652; 83735; 85025; 85610; 86803

== ENCOUNTER 2024-12-26 11:20 | Inpatient (IN) | payer OTHER ==
[2024-12-26 11:42] VITALS: BMI 17.1
[2024-12-26] MEDS ORDERED: BENZONATATE 200 MG CAPSULE PO PRN (12:16)
[2024-12-26] MEDS ORDERED: BISMUTH SUBSALICYLATE 262 MG/15 ML BTL PO PRN (12:16)
[2024-12-26] MEDS ORDERED: ONDANSETRON *ODT* 4 MG TABLET SL PRN (12:16)
[2024-12-26] MEDS ORDERED: POLYETHYLENE GLYCOL (HEALTHYLAX) 3350 17 GM PACKET PO PRN (12:16)
[2024-12-26] MEDS ORDERED: guaiFENesin 600 MG TABLET.ER (FP) PO PRN (12:16)
[2024-12-26] MEDS ORDERED: IBUPROFEN 600 MG TABLET (FP) PO PRN (12:16)
[2024-12-26] MEDS ORDERED: NICOTINE POLACRILEX 2 MG LOZENGE BC PRN (12:16)
[2024-12-26] MEDS ORDERED: NALOXONE (NARCAN) HCL 4 MG/0.1 ML SPRAY NS PRN (12:16)
[2024-12-26] MEDS ORDERED: MAGNESIUM HYDROX 2400MG/30ML ORAL SUSPENSION 30 ML CUP PO PRN (12:16)
[2024-12-26] MEDS ORDERED: NICOTINE POLACRILEX 2 MG GUM BUC PRN (12:16)
[2024-12-26] MEDS ORDERED: DICYCLOMINE HCL 10 MG CAPSULE PO PRN (12:16)
[2024-12-26] MEDS ORDERED: LOPERAMIDE HCL 2 MG CAPSULE PO PRN (12:16)
[2024-12-26] MEDS ORDERED: MAG HYDROX/AL HYDROX/SIMETH 30 ML UNIT-DOSE CUP PO PRN (12:16)
[2024-12-26] MEDS ORDERED: METHOCARBAMOL 500 MG TABLET PO PRN (12:16)
[2024-12-26] MEDS ORDERED: ACETAMINOPHEN 325 MG TABLET (FP) PO PRN (12:16)
[2024-12-26] MEDS ORDERED: IBUPROFEN 400 MG TABLET (FP) PO PRN (12:16)
[2024-12-26] MEDS ORDERED: BENZOCAINE/MENTHOL (CHLORASEPTIC ) LOZENGE MM PRN (12:16)
[2024-12-26] MEDS ORDERED: diazePAM 5 MG TABLET PO PRN (12:38)
[2024-12-26] MEDS ORDERED: ALBUTEROL SO4 HFA INHALER IH PRN (13:46)
[2024-12-26] MEDS: GABAPENTIN 300 MG CAPSULE PO SCH (14:55)
[2024-12-26] MEDS: FLUCONAZOLE 100 MG TABLET (UD) PO SCH (14:55)
[2024-12-26] MEDS: diazePAM 5 MG TABLET PO SCH (17:08)
[2024-12-26] MEDS ORDERED: SPIRONOLACTONE 25 MG TABLET PO SCH (22:00)
[2024-12-26] MEDS ORDERED: VALACYCLOVIR HCL 1000 MG PO SCH (22:00)
[2024-12-26] MEDS ORDERED: PATIENT'S OWN MEDICATION (NON-FORMULARY) (Estradiol [Estrace] 1 MG Tablet) PO SCH (22:00)
[2024-12-26] MEDS ORDERED: [UNRECOGNIZED DRUG - OTHER] PO SCH (22:00)
[2024-12-26] MEDS: THIAMINE 100 MG TABLET PO SCH (22:13)
[2024-12-26] MEDS: QUEtiapine FUMARATE 100 MG TABLET (FP) PO SCH (22:13)
[2024-12-26] MEDS: MELATONIN 5 MG TABLETS PO SCH (22:13)
[2024-12-27] MEDS ORDERED: FLUCONAZOLE 100 MG TABLET (UD) PO SCH (10:00)
[2024-12-27] MEDS: FOLIC ACID 1 MG TABLET (FP) PO SCH (10:45)
[2024-12-27] MEDS: PRENATAL VITAMINS W/ FOLIC ACID TABLET (FP) PO SCH (10:45)
[2024-12-27] MEDS: SULFAMETHOXAZOLE/TRIMETHOPRIM 800MG/160MG D.S. TABLET PO SCH (10:45)
[2024-12-27] MEDS: ABACAVIR/DOLUTEGRAVIR/LAMIVUDI (TRIUMEQ) TABLET PO SCH (10:45)
[2024-12-27] MEDS: PANTOPRAZOLE 40 MG TABLET PO SCH (10:46)
[2024-12-27 11:31] LABS: HEMOGLOBIN 12.7 g/dL (13.7-17.5); MCHC 33.4 g/dl (32.3-36.5); MEAN CELL VOLUME 92.5 fl (79.0-92.2); MEAN PLT VOLUME 9.8 fl (9.4-12.4); PLATELET COUNT 169 x10^3/uL (163-337); RDW 14.3 % (12.2-16.1)
[2024-12-27 12:25] LABS: POTASSIUM 4.5 mmol/L (3.5-5.1)
[2024-12-27 12:27] LABS: CALCIUM 9.2 mg/dL (8.5-10.1)
[2024-12-27 12:28] LABS: ALBUMIN 3.7 g/dl (3.4-5.0); BLOOD UREA NITROGEN 9.2 mg/dL (7-18)
[2024-12-27 12:31] LABS: CREATININE 1.1 mg/dL (0.55-1.3)
[2024-12-27 12:32] LABS: BILIRUBIN,TOTAL 0.4 mg/dL (0.2-1)
[2024-12-27 12:33] LABS: TOT PROT 9.5 g/dl (6.4-8.2)
[2024-12-28] MEDS: diazePAM 5 MG TABLET PO SCH (05:11)
[2024-12-29] MEDS: diazePAM 5 MG TABLET PO SCH (05:37)
[2024-12-29 17:54] VITALS: RESP 16
[2024-12-30] MEDS: diazePAM 5 MG TABLET PO ONE (05:44)
[2024-12-30 09:29] VITALS: BP 114/79; PULSE 84; TEMP 97.1
== END 2024-12-30 09:10 | disposition home or self-care (01) | DRG 774 ==
LOC: YASAS 11:20 → Y3N 13:12
PROVIDERS: ADMIT Allergy & Immunology; ATTEND Allergy & Immunology
PROC: HZ2ZZZZ Detoxification Services for Substance Abuse Treatment (ICD-10-PCS; principal; 2024-12-26)
DX: F10.230 Alcohol dependence with withdrawal, uncomplicated (principal); F14.20 Cocaine dependence, uncomplicated; F12.20 Cannabis dependence, uncomplicated; F17.210 Nicotine dependence, cigarettes, uncomplicated; F64.0 Transsexualism; B20 Human immunodeficiency virus [HIV] disease; G62.9 Polyneuropathy, unspecified; J45.20 Mild intermittent asthma, uncomplicated; B00.9 Herpesviral infection, unspecified; Z62.810 Personal history of physical and sexual abuse in childhood; Z91.410 Personal history of adult physical and sexual abuse; Z63.0 Problems in relationship with spouse or partner; Z63.8 Other specified problems related to primary support group; Z86.11 Personal history of tuberculosis
CPT/HCPCS: 36415; 80053; 80305; 80307; 85027; 86593; 86780